=== PATIENT | female | born 1940 | race Caucasian/White ===

== ENCOUNTER 2017-12-13 09:48 | Emergency (ER) | payer MEDICARE, SELFPAY ==
[2017-12-13 10:08] VITALS: BP 130/84; PULSE 77; RESP 18; TEMP 37.1; O2SAT 99
--- NOTE | 2017-12-13 13:08 | DI.RAD.S_ITS ---
PROCEDURE: XR HIP W PEL IF DONE LT 2V INDICATIONS: fall with severe Left hip pain TECHNIQUE: AP pelvis with lateral view(s) of the left hip(s). COMPARISON: None. FINDINGS: Bones: No fractures or dislocations. Pelvic ring appears intact. No suspicious bony lesions. Soft tissues: The visualized bowel gas pattern is normal. No suspicious soft tissue calcifications. IMPRESSION: Trauma is not found. If hidden fracture is clinically suspected screening pelvic MRI may become necessary. Dictated by: Billy Dyson M.D. on 12/13/2017 at 13:28 Approved by: Billy Dyson M.D. on 12/13/2017 at 13:28
[2017-12-13 13:31] VITALS: BP 152/76; PULSE 74; RESP 14; O2SAT 100
--- NOTE | 2017-12-13 13:46 | DI.CT.S_ITS ---
PROCEDURE: CT PEL WO CON INDICATIONS: Fall with left hip pain TECHNIQUE: Noncontrast 3 mm axial sections acquired through the bony pelvis, with coronal and sagittal reformatting. COMPARISON: [facility], CR, XR HIP W PEL IF DONE LT 2V, 12/13/2017, 12:46. FINDINGS: Image quality: Excellent. Bones: No definite fracture found. Soft tissues: No hematoma identified. Note is made of a previously present left lower quadrant body wall herniorrhaphy mesh without adjacent inflammation. IMPRESSION: No definite trauma found. Several vascular canals are seen extending through the right and left pelvic osseous structures but none of these has imaging characteristics suggestive of nondisplaced fractures. Please note that MR scanning provides the most accurate assessment for hidden fractures and bone bruising, and ligamentous injury. Dictated by: Billy Dyson M.D. on 12/13/2017 at 14:13 Approved by: Billy Dyson M.D. on 12/13/2017 at 14:18
[2017-12-13 14:23] VITALS: BP 175/86; PULSE 72; RESP 16; O2SAT 97
--- NOTE | 2017-12-13 14:24 | PC.NURSE ---
pt reports pain in L hip worse when turning to L lateral side and putting pressure on it. Able to internally externally rotate L knee/leg w/o increasing pain. +CMS intact in L foot.
--- NOTE | 2017-12-13 14:35 | ED_ITS ---
HPI - Back Pain/Injury General Chief Complaint: Back Pain/Injury Stated Complaint: FELL ON TUESDAY Time Seen by Provider: 12/13/17 10:43 Source: patient and family Mode of arrival: ambulatory Limitations: no limitations History of Present Illness HPI Narrative: Patient presents to the emergency department with her and a chief complaint of left hip pain since a mechanical fall a few days ago. She very lightly bumped her head but denies loss of consciousness nor nausea, vomiting or focal neurologic findings such as numbness, weakness or tingling. She does not take blood thinners and denies the use of alcohol. Her pain is largely in her left hip and though she has been able to ambulate she states it is worse with walking MD Complaint: back pain Onset (ago): day(s) Duration: intermittent Similar Symptoms Previously: No Location: left lower back (, largely left hip) Severity: moderate Quality: stabbing Radiation: none Relieving factors: immobilization Exacerbating factors: walking Context: fall Associated symptoms: denies other symptoms Related Data Home Medications Medication Instructions Recorded Confirmed omeprazole magnesium [Prilosec OTC] 1 tab PO BID 12/13/17 12/13/17 Previous Rx's Medication Instructions Recorded atenolol 100 mg PO QDAY #90 tab 07/29/17 doxazosin 1 mg PO HS #90 tab 07/29/17 triamterene-hydrochlorothiazid 1 tab PO QDAY #90 tab 07/29/17 [Maxzide] Allergies Allergy/AdvReac Type Severity Reaction Status Date / Time amlodipine [AMLODIPINE] Allergy Mild Unverified 10/05/17 11:49 lisinopril [LISINOPRIL] Allergy Mild Unverified 10/05/17 11:49 metoclopramide Allergy Mild Unverified 10/05/17 11:49 [METOCLOPRAMIDE] Review of Systems Review of Systems All systems reviewed & are unremarkable except as noted in HPI and below Constitutional Denies chills, Denies fever(s), Denies lethargy and Denies weakness Eyes Denies change in vision, Denies eye discharge, Denies irritation and Denies loss of vision ENT Ears, Nose, Mouth, and Throat: Denies change in voice, Denies neck pain and Denies sore throat Cardiovascular Denies chest pain, Denies irregular heart rhythm, Denies lightheadedness, Denies palpitations, Denies dyspnea, Denies dyspnea on exertion and Denies orthopnea Respiratory Denies cough, Denies dyspnea, Denies dyspnea on exertion and Denies wheezing Gastrointestinal Gastrointestinal: Denies abdominal pain, Denies change in bowel habits, Denies diarrhea, Denies nausea and Denies vomiting Genitourinary Denies hematuria, Denies flank pain, Denies urinary incontinence and Denies urinary urgency Musculoskeletal Reports limited range of motion, Denies neck pain and Reports radiating pain into limb Integumentary/Breasts Denies pruritus, Denies erythema, Denies rash and Denies wounds Neurologic Denies confusion, Denies loss of vision and Denies weakness Psychiatric Denies anxiety, Denies confusion, Denies depression, Denies homicidal ideation and Denies suicidal ideation Endocrine Denies palpitations Hematologic/Lymphatic Denies easy bruising Allergic/Immunologic Denies wheezing [facility] Social History Smoking Status: Former smoker Exam Initial Vital Signs Initial Vital Signs: Vital Signs Temperature 98.8 F 12/13/17 10:08 Pulse Rate 77 12/13/17 10:08 Respiratory Rate 18 12/13/17 10:08 Blood Pressure 130/84 H 12/13/17 10:08 Pulse Oximetry 99 12/13/17 10:08 Const General: cooperative and well developed Nutritional Appearance: well nourished Orientation: alert, awake, oriented x3 and not confused [facility] Head: abrasion (Very superficial abrasion left occiput) Eyes General: appearance normal, both eyes and all related structures Eyelids: eyelids normal Conjunctivae: conjunctivae normal Sclera: sclerae normal Pupils: PERRL EOM: EOM intact bilaterally Neck Neck: normal visual inspection, trachea midline, No lymphadenopathy, No midline deformity and No JVD Lymphatic: No lymphedema Resp Effort & Inspection: normal respiratory effort, able to speak in complete sentences, no respiratory distress and no use of accessory muscles Auscultation: clear to auscultation bilaterally, no rales, no rhonchi and no wheezes GI Inspection: non-distended Palpation: soft, no hepatosplenomegaly, No guarding, No pulsatile mass and No tender Auscultation: normal bowel sounds Back/Spine/Pelvis Back: No CVA tenderness Cervical Spine: cervical ROM normal and No pain with cervical ROM Thoracic/Lumbar Spine: thoracic and lumbar spine normal to inspection Skin General: no rashes or lesions noted, No jaundice and No petechiae Neuro General: alert, oriented x3, gait normal and no focal motor deficits Speech: speech normal Extrem Left lower extremity: full ROM (Patient points to left hip as source of pain but has minimal pain with axial load, internal external rotation at the hip as well as flexion and extension at the hip. There is no obvious deformity, swelling or ecchymosis) Course Orders Ordered: ED Orders 12/13/17 13:08 XR hip w pel if done LT 2V Stat 12/13/17 13:46 CT pelvis wo con Stat Vital Signs - 8 hr 12/13/17 13:31 12/13/17 14:23 12/13/17 14:50 Pulse Rate 74 72 71 Respiratory Rate 14 16 12 Blood Pressure 141/78 H Blood Pressure [Right Arm] 152/76 H 175/86 H Pulse Oximetry 100 97 97 MDM - Back Pain/Injury Differential Diagnosis Differential diagnosis: Likely lumbar radiculopathy, sciatica, strain of lumbar region, renal colic, pyelonephritis, thoracic back pain, AAA and discitis Imaging Data CT scan - pelvis: Radiologist's impression: Patient: Tong [facility]#: [id number] : 1940Acct:[id number] Age/Sex: 77 / FDate of Service: 12/13/17 Loc: ED Accession Number: [id number] Procedure: CT pelvis wo con Ordering Provider: Quinn Marshall D.O. PROCEDURE: CT PEL WO CON INDICATIONS: Fall with left hip pain TECHNIQUE: Noncontrast 3 mm axial sections acquired through the bony pelvis, with coronal and sagittal reformatting. COMPARISON: [facility], CR, XR HIP W PEL IF DONE LT 2V, 12/13/2017, 12:46. FINDINGS: Image quality: Excellent. Bones: No definite fracture found. Soft tissues: No hematoma identified. Note is made of a previously present left lower quadrant body wall herniorrhaphy mesh without adjacent inflammation. IMPRESSION: No definite trauma found. Several vascular canals are seen extending through the right and left pelvic osseous structures but none of these has imaging characteristics suggestive of nondisplaced fractures. Please note that MR scanning provides the most accurate assessment for hidden fractures and bone bruising, and ligamentous injury. Dictated by: Billy Dyson M.D. on 12/13/2017 at 14:13 Approved by: Billy Dyson M.D. on 12/13/2017 at 14:18 Discharge Plan Departure Patient Disposition: Home, Self-Care Clinical Impression: Contusion of hip Discharge Date/Time: 12/13/17 14:55 Interventions: ED Discharge Assessment Last Done: 12/13/17 14:50 Instructions: DI for Contusion Activity Restrictions/Additional Instructions: *You have been diagnosed with [ left hip contusion ] *What to do: *Take medications as directed *Follow up with your primary care provider in 2-3 days *Return to ER if you should have any new, worsening or concerning symptoms Prescriptions: No Action doxazosin 1 MG tablet 1 mg PO HS Qty: 90 RF: 3 atenolol 100 MG tablet 100 mg PO QDAY Qty: 90 RF: 3 triamterene-hydrochlorothiazid [Maxzide] 75 MG/50 MG tablet 1 tab PO QDAY Qty: 90 RF: 3 omeprazole magnesium [Prilosec OTC] 20 mg Tablet,Delayed Release (Dr/Ec) 1 tab PO BID RF: 0
[2017-12-13 14:50] VITALS: BP 141/78; PULSE 71; RESP 12; O2SAT 97
== END 2017-12-13 14:55 | disposition home or self-care (01) ==
PROVIDERS: Emergency Provider Emergency Medicine; Family Provider Family Medicine; PCP Family Medicine
DX: S70.00XA Contusion of unspecified hip, initial encounter (principal); W19.XXXA Unspecified fall, initial encounter
CPT/HCPCS: 72192; 73502; 99282; 99284

== ENCOUNTER → 2018-03-01 09:51 | Outpatient (CLI) | payer MEDICARE, SELFPAY ==
--- NOTE | 2018-03-01 | DI.MG.S_ITS ---
BILATERAL DIGITAL SCREENING MAMMOGRAM 3D/2D WITH CAD: 03/01/2018 CLINICAL: Routine screening. Comparison is made to exams dated: 02/03/2017 mammogram, 01/22/2016 mammogram, and 01/20/2015 mammogram - [facility]. The tissue of both breasts is heterogeneously dense. This may lower the sensitivity of mammography. Current study was also evaluated with a Computer Aided Detection (CAD) system. There is possible architectural distortion in the right breast posterior depth upper region seen on the mediolateral oblique view only. Finding is best noted on tomographic R MLO slice 27/46. There are benign bilateral breast calcifications. No other significant masses, calcifications, or other findings are seen in either breast. IMPRESSION: INCOMPLETE: NEEDS ADDITIONAL IMAGING EVALUATION The possible architectural distortion in the right breast is indeterminate. Additional views with possible ultrasound are recommended. This exam was interpreted at Station ID: [id number]. NOTE: For mammograms, a report in lay terms will be sent to the patient. Approximately 15% of breast malignancies will not be visualized mammographically. In the management of a palpable breast mass, a negative mammogram must not discourage biopsy of a clinically suspicious lesion. Electronically Signed By: Bjorn Jean M.D. ecl/:03/01/2018 10:42:24 letter sent: Additional Imaging Needed ACR BI-RADS Category 0: Incomplete 3340F
== END ==
PROVIDERS: Family Provider Family Medicine; PCP Family Medicine; Visit Provider Family Medicine
DX: Z12.31 Encounter for screening mammogram for malignant neoplasm of breast (principal)
CPT/HCPCS: 77063; 77067

== ENCOUNTER → 2018-03-27 08:25 | Outpatient (CLI) | payer MEDICARE, SELFPAY ==
--- NOTE | 2018-03-27 08:28 | DI.MG.S_ITS ---
UNILATERAL RIGHT DIGITAL DIAGNOSTIC MAMMOGRAM 3D/2D WITH ADDITIONAL VIEWS: 03/27/2018 CLINICAL: Additional evaluation requested from prior study. Comparison is made to exams dated: 03/01/2018 mammogram, 02/03/2017 mammogram, and 01/22/2016 mammogram - [facility]. The tissue of right breast is heterogeneously dense. This may lower the sensitivity of mammography. The architectural distortion in the right breast posterior depth superior region seen on the mediolateral oblique view only is not seen in additional views. No other significant masses or calcifications are seen in the breast. IMPRESSION: There is no mammographic evidence of malignancy. A 1 year screening mammogram is recommended.(03/28/2019) This exam was interpreted at Station ID: [id number]. NOTE: For mammograms, a report in lay terms will be sent to the patient. Approximately 15% of breast malignancies will not be visualized mammographically. In the management of a palpable breast mass, a negative mammogram must not discourage biopsy of a clinically suspicious lesion. Electronically Signed By: Christine Deng M.D. lk/:03/27/2018 10:05:59 letter sent: Normal Exam ACR BI-RADS Category 2: Benign Finding(s) 3342F
== END ==
PROVIDERS: Family Provider Family Medicine; PCP Family Medicine; Visit Provider Family Medicine
DX: R92.8 Other abnormal and inconclusive findings on diagnostic imaging of breast (principal)
CPT/HCPCS: 77065; G0279

== ENCOUNTER → 2018-06-21 09:23 | Outpatient (CLI) | payer MEDICARE, SELFPAY ==
[2018-06-21 10:22] LABS: Alanine Aminotransferase 9 IU/L (9-52); Albumin 4.3 g/dL (3.5-5.0); Albumin Globulin Ratio 1.1 (1.0-2.8); Alkaline Phosphatase 44 U/L (38-126); Aspartate Aminotransferase 52 IU/L (14-36); BUN Creatinine Ratio 28.6 (6-22); Bilirubin Total 1.3 mg/dL (0.2-1.3); Blood Urea Nitrogen 20 mg/dL (7-17); Calcium 9.2 mg/dL (8.4-10.2); Carbon Dioxide 26 mmol/L (22-32); Chloride 98 mmol/L (98-107); Cholesterol 198 mg/dL (140-199); Estimated Glomerular Filt Rate > 60.0 mL/min (>60); Globulin 3.9 g/dL (1.7-4.1); Glucose 93 mg/dL (80-110); HDL Cholesterol 80 mg/dL (40-60); LDL Cholesterol Calculated 104 mg/dL (<100); Potassium 4.7 mmol/L (3.4-5.1); Sodium 136 mmol/L (137-145); Total Protein 8.2 g/dL (6.3-8.2); Triglycerides 71 mg/dL (35-150)
[2018-06-21 10:32] LABS: HEMOLYSIS 181 (0-50)
== END ==
PROVIDERS: Family Provider Family Medicine; PCP Family Medicine; Visit Provider Family Medicine
DX: I10 Essential (primary) hypertension (principal); R94.5 Abnormal results of liver function studies
CPT/HCPCS: 36415; 80053; 80061

== ENCOUNTER 2018-07-22 12:45 | Emergency (ER) | payer MEDICARE, SELFPAY ==
[2018-07-22 13:00] VITALS: BP 125/69; PULSE 82; RESP 14; TEMP 36.8; O2SAT 100; BMI 18.7
--- NOTE | 2018-07-22 13:34 | ED_ITS ---
HPI - Extremity Problem <Lexie Ngo PA-C - Last Filed: 07/22/18 22:00> General Chief complaint: Extremity Problem,Nontraumatic Stated complaint: pain in left hip, difficult to walk Time Seen by Provider: 07/22/18 13:04 Source: patient Mode of arrival: ambulatory Limitations: no limitations History of Present Illness HPI Narrative: This 77-year-old female is brought in by her son due to gradually worsening left hip pain. She had a fall 5 or 6 months ago and had MRI and x-rays done without any acute findings, states that she continues to have intermittent pain, but for the last 5 days, she states more persistent with walking. No pain at rest. She states it is still intermittent but definitely exacerbated by standing up and starting to walk. She has not taken any pain medication for this. She denies any new fall or trauma. She denies any new fever, rash, or new pain elsewhere. Denies any other complaints on systems review. When asked why she came in today versus at another time, her son states I got tired of listening to her complain. She believes that she does have arthritis in the hip. She states that she feels the pain more in the front of the hip, indicates medial to the hip Related Data Home Medications Medication Instructions Recorded Confirmed omeprazole magnesium [Prilosec OTC] 1 tab PO BID 12/13/17 03/29/18 Previous Rx's Medication Instructions Recorded doxazosin 1 mg PO HS #90 tab 07/29/17 triamterene-hydrochlorothiazid 1 tab PO QDAY #90 tab 07/29/17 [Maxzide] atenolol 100 mg tablet 100 mg PO QDAY #90 tab 07/20/18 Allergies Allergy/AdvReac Type Severity Reaction Status Date / Time amlodipine [AMLODIPINE] Allergy Mild Verified 07/22/18 13:10 lisinopril [LISINOPRIL] Allergy Mild Verified 07/22/18 13:10 metoclopramide Allergy Mild Verified 07/22/18 13:10 [METOCLOPRAMIDE] Review of Systems <Lexie Ngo PA-C - Last Filed: 07/22/18 22:00> Review of Systems ROS Unobtainable: All systems reviewed & are unremarkable except as noted in HPI and below Exam <Lexie Ngo PA-C - Last Filed: 07/22/18 22:00> Narrative Exam Narrative: GENERAL APPEARANCE: Patient sitting comfortably, in no distress. LUNGS: Clear to auscultation bilaterally. HEART: Rate and rhythm regular without murmur, normal S1 and S2, no S3 or S4. MUSCULOSKELETAL: No point tenderness over the left anterior or lateral hip. Somewhat tender over the left SI area. No point tenderness over the lumbosacral spine. Full passive range of motion of the left hip, +Karl's test, no tenderness with range of motion of the left knee or ankle DERMATOLOGIC: No exanthem Initial Vital Signs Initial Vital Signs: Vital Signs Temperature 98.2 F 07/22/18 13:00 Pulse Rate 82 07/22/18 13:00 Respiratory Rate 14 07/22/18 13:00 Blood Pressure 125/69 07/22/18 13:00 Pulse Oximetry 100 07/22/18 13:00 <Sal Fowler DO - Last Filed: 07/23/18 07:02> Initial Vital Signs Initial Vital Signs: Vital Signs Temperature 98.2 F 07/22/18 13:00 Pulse Rate 82 07/22/18 13:00 Respiratory Rate 14 07/22/18 13:00 Blood Pressure 125/69 07/22/18 13:00 Pulse Oximetry 100 07/22/18 13:00 Course <ROOSEVELT Miller Last Filed: 07/22/18 22:00> Additional Information: Patient and her son became frustrated with waiting for x -ray results and decided to depart prior to them being return. She reported feeling comfortable while waiting. She has not had any acute trauma. Advised trial of Tylenol arthritis strength and follow up with PCP next week. Advised we will call with any acute findings on the x-ray, otherwise if no changes will send to PCP for review and follow-up, and she is agreeable with this plan. Orders Ordered: Discontinued Medications Acetaminophen (Tylenol) 650 mg PO NOW ONE Stop: 07/22/18 13:46 Last Admin: 07/22/18 13:49 Dose: 650 mg Vital Signs - 8 hr 07/22/18 13:00 Temperature 98.2 F Pulse Rate 82 Respiratory Rate 14 Blood Pressure 125/69 Pulse Oximetry 100 <DO Jakob Olmstead Last Filed: 07/23/18 07:02> Orders Ordered: Discontinued Medications Acetaminophen (Tylenol) 650 mg PO NOW ONE Stop: 07/22/18 13:46 Last Admin: 07/22/18 13:49 Dose: 650 mg Vital Signs - 8 hr 07/22/18 13:00 Temperature 98.2 F Pulse Rate 82 Respiratory Rate 14 Blood Pressure 125/69 Pulse Oximetry 100 MDM - Extremity (Nontraumatic) <Lexie Ngo PA-C - Last Filed: 07/22/18 22:00> Imaging Data hip: Radiologist's impression: [address] [address] XRay Report Signed Patient: Tong [facility]MR#: [id number] : 1940Acct:[id number] Age/Sex: 77 / FDate of Service: 07/22/18 Loc: ED Accession Number: [id number] Procedure: XR hip w pel if done LT 2V Ordering Provider: Lexie Ngo P.A-C PROCEDURE: XR HIP W PEL IF DONE LT 2V INDICATIONS: anterior and posterior pain, trouble walking TECHNIQUE: 3 views of the hip were acquired. COMPARISON: 12/13/2017. FINDINGS: Bones: No acute fractures or dislocations. Degenerative changes of the bilateral hip and lumbar spine. Mild degenerative changes of the bilateral SI joints. No suspicious bony lesions. The visualized pelvic ring appears intact. Soft tissues: No suspicious soft tissue calcifications or masses. Surgical clips are again noted in the left lower abdomen. IMPRESSION: Left hip without acute osseous abnormalities. Degenerative changes as before. Dictated by: Maximilian Zimmerman M.D. on 07/22/2018 at 15:54 Approved by: Maximilian Zimmerman M.D. on 07/22/2018 at 15:56 Discharge Plan Departure Patient Disposition: Left Against Medical Advice Clinical Impression: Left against medical advice Discharge Date/Time: 07/22/18 15:43 Interventions: ED Discharge Assessment Last Done: 07/22/18 15:43 Prescriptions: No Action doxazosin 1 MG tablet 1 mg PO HS Qty: 90 RF: 3 triamterene-hydrochlorothiazid [Maxzide] 75 MG/50 MG tablet 1 tab PO QDAY Qty: 90 RF: 3 atenolol 100 mg tablet 100 mg PO QDAY Qty: 90 RF: 1 omeprazole magnesium [Prilosec OTC] 20 mg Tablet,Delayed Release (Dr/Ec) 1 tab PO BID RF: 0 Stand Alone Forms: Against Medical Advice <Sal Fowler, - Last Filed: 07/23/18 07:02> Cosign ED Attending Coskevinature Attestation: I was available for consultation during this patient's emergency department encounter
--- NOTE | 2018-07-22 13:45 | DI.RAD.S_ITS ---
PROCEDURE: XR HIP W PEL IF DONE LT 2V INDICATIONS: anterior and posterior pain, trouble walking TECHNIQUE: 3 views of the hip were acquired. COMPARISON: 12/13/2017. FINDINGS: Bones: No acute fractures or dislocations. Degenerative changes of the bilateral hip and lumbar spine. Mild degenerative changes of the bilateral SI joints. No suspicious bony lesions. The visualized pelvic ring appears intact. Soft tissues: No suspicious soft tissue calcifications or masses. Surgical clips are again noted in the left lower abdomen. IMPRESSION: Left hip without acute osseous abnormalities. Degenerative changes as before. Dictated by: Maximilian Zimmerman M.D. on 07/22/2018 at 15:54 Approved by: Maximilian Zimmerman M.D. on 07/22/2018 at 15:56
[2018-07-22] MEDS: ACETAMINOPHEN 325 MG TABLET 650 MG PO (13:49)
== END 2018-07-22 15:43 | disposition left against medical advice (07) ==
PROVIDERS: Emergency Provider Internal Medicine; PCP Family Medicine
DX: M25.552 Pain in left hip (principal); Z53.20 Procedure and treatment not carried out because of patient's decision for unspecified reasons
CPT/HCPCS: 73502; 99283

== ENCOUNTER → 2018-09-12 09:41 | Outpatient (CLI) | payer MEDICARE, SELFPAY ==
--- NOTE | 2018-09-12 | DI.CT.S_ITS ---
PROCEDURE: CT KIDNEY URETER BLADDER (KUB) INDICATIONS: LEFT LOWER QUADRANT PAIN TECHNIQUE: Noncontrast 5 mm thick sections acquired from the diaphragms to the symphysis. 5 mm thick coronal and sagittal reformats were then performed. For radiation dose reduction, the following was used: automated exposure control, adjustment of mA and/or kV according to patient size. COMPARISON: [facility], CT, ABDOMEN/PELVIS WITH CONTRAST, 05/16/2015, 11:15. [facility], CT, CT PEL WO CON, 12/13/2017, 13:39. [facility], US, ABDOMEN COMPLETE, 07/25/2017, 8:21. FINDINGS: Image quality: Excellent. Lung bases: Lung bases are clear. Heart size is normal. Bilateral, small fat containing posterior diaphragmatic hernias Urinary system: Bilateral renal cortical scarring and atrophy. There is age-indeterminate minimal perinephric stranding bilaterally. No kidney stones. No hydronephrosis or perinephric fat stranding. Both ureters appear non-dilated throughout their expected courses. Bladder is partially decompressed otherwise grossly unremarkable; no calcified bladder stones. Other solid organs: Liver is normal in size. Gallbladder contains a partially calcified gallstone as seen on prior ultrasound dated 07/25/17. Pancreas is normal in contours. Spleen is normal in size. No adrenal nodules. Peritoneum and bowel: Small hiatal hernia Unenhanced bowel loops demonstrate normal wall thickness and caliber. No free fluid or air. Nodes and vessels: No retroperitoneal or mesenteric adenopathy by size criteria. Aorta and inferior vena cava are normal in caliber. Abdominal wall: No ventral hernias. Probable postsurgical changes related to repair of left anterior abdominal wall hernia, unchanged. Since 2014. Pelvis: No free pelvic fluid. No inguinal hernias or adenopathy. Bones: No suspicious bony lesions. T12 compression fracture, which is new since 05/16/15 however no more recent comparison studies. IMPRESSION: No evidence of urolithiasis. No evidence of urinary obstruction. Cholelithiasis as before. Age-indeterminate T12 compression fracture. Incidental colonic diverticulosis. Small hiatal hernia. Dictated by: Cecil Youngblood M.D. on 09/12/2018 at 10:48 Approved by: Cecil Youngblood M.D. on 09/12/2018 at 11:10
== END ==
PROVIDERS: PCP Family Medicine; Visit Provider Specialist
DX: R10.32 Left lower quadrant pain (principal); K80.80 Other cholelithiasis without obstruction; K57.90 Diverticulosis of intestine, part unspecified, without perforation or abscess without bleeding; K44.9 Diaphragmatic hernia without obstruction or gangrene; M48.54XA Collapsed vertebra, not elsewhere classified, thoracic region, initial encounter for fracture
CPT/HCPCS: 74176

== ENCOUNTER → 2018-10-03 08:24 | Outpatient (CLI) | payer MEDICARE, SELFPAY ==
[2018-10-03 08:40] LABS: Bacteria Urine None Seen; RBC Urine None Seen (0-5/HPF)
[2018-10-03 09:17] LABS: Hematocrit 38.4 % (36-46); Hemoglobin 13.3 g/dL (12.0-16.0); Mean Corpuscular HGB Conc 34.6 % (30-36); Mean Corpuscular Hemoglobin 34.7 PG (26-34); Mean Corpuscular Volume 100.3 fL (80-100); Platelet Count 206 X10^3/uL (150-400); Red Blood Cell Count 3.83 X10^6/uL (4.0-5.2); Red Cell Distribution Width 13.9 % (11.6-14.8); White Blood Cell Count 4.3 X10^3/uL (4.5-11.0)
[2018-10-03 09:37] LABS: Alanine Aminotransferase 22 IU/L (9-52); Albumin 4.3 g/dL (3.5-5.0); Albumin Globulin Ratio 1.3 (1.0-2.8); Alkaline Phosphatase 48 U/L (38-126); Aspartate Aminotransferase 37 IU/L (14-36); Bilirubin Total 0.6 mg/dL (0.2-1.3); Blood Urea Nitrogen 16 mg/dL (7-17); Carbon Dioxide 28 mmol/L (22-32); Chloride 95 mmol/L (98-107); Cholesterol 217 mg/dL (140-199); Estimated Glomerular Filt Rate > 60.0 mL/min (>60); Globulin 3.2 g/dL (1.7-4.1); Glucose 94 mg/dL (80-110); HDL Cholesterol 94 mg/dL (40-60); HEMOLYSIS < 15 (0-50); LDL Cholesterol Calculated 105 mg/dL (<100); Sodium 134 mmol/L (137-145); Total Protein 7.5 g/dL (6.3-8.2); Triglycerides 88 mg/dL (35-150)
[2018-10-03 09:48] LABS: Appearance Urine UA CLEAR; Bilirubin Urine UA NEGATIVE (NEGATIVE); Color Urine UA YELLOW; Glucose Urine UA NEGATIVE (Negative); Ketones Urine UA NEGATIVE (NEGATIVE); Leukocyte Esterase Urine UA 1+ (NEGATIVE); Nitrite Urine UA NEGATIVE (Negative); Occult Blood Urine UA NEGATIVE (Negative); Protein Urine UA NEGATIVE (Negative); Specific Gravity Urine UA 1.015 (1.000-1.035); pH Urine UA 6.5 (4.5-8.0)
[2018-10-03 09:56] LABS: Culture Indicated Urine Cult Not Indicated; Squamous Epithelial Cell Urine 5-10 /HPF (0-5/HPF); WBC Urine 5-10/HPF (0-5/HPF)
== END ==
PROVIDERS: PCP Family Medicine; Visit Provider Family Medicine
DX: I10 Essential (primary) hypertension (principal); R74.8 Abnormal levels of other serum enzymes; R79.89 Other specified abnormal findings of blood chemistry; Z51.81 Encounter for therapeutic drug level monitoring
CPT/HCPCS: 36415; 80053; 80061; 81001; 85027

== ENCOUNTER → 2019-04-06 12:12 | Outpatient (CLI) | payer MEDICARE, SELFPAY ==
--- NOTE | 2019-04-06 | DI.MG.S_ITS ---
BILATERAL DIGITAL SCREENING MAMMOGRAM 3D/2D WITH CAD: 04/06/2019 CLINICAL: Routine screening. Comparison is made to exams dated: 03/27/2018 mammogram, 03/01/2018 mammogram, 02/03/2017 mammogram, 01/22/2016 mammogram, and 01/20/2015 mammogram - [facility]. The tissue of both breasts is heterogeneously dense. This may lower the sensitivity of mammography. Current study was also evaluated with a Computer Aided Detection (CAD) system. Findings are stable to prior comparison exams. No new suspicious masses, calcifications, or other findings are seen in either breast. There has been no significant interval change. IMPRESSION: NEGATIVE There is no mammographic evidence of malignancy. A 1 year screening mammogram is recommended. This exam was interpreted at Station ID: [id number]. NOTE: For mammograms, a report in lay terms will be sent to the patient. Approximately 15% of breast malignancies will not be visualized mammographically. In the management of a palpable breast mass, a negative mammogram must not discourage biopsy of a clinically suspicious lesion. Electronically Signed By: Bjorn Jean M.D. ecl/:04/06/2019 18:50:05 letter sent: Normal Exam ACR BI-RADS Category 1: Negative 3341F
== END ==
PROVIDERS: PCP Family Medicine; Visit Provider Family Medicine
DX: Z12.31 Encounter for screening mammogram for malignant neoplasm of breast (principal)
CPT/HCPCS: 77063; 77067

== ENCOUNTER 2019-07-28 13:09 | Emergency (ER) | payer MEDICARE, SELFPAY ==
[2019-07-28 13:17] VITALS: BP 123/77; PULSE 78; RESP 18; TEMP 36.6; O2SAT 97
[2019-07-28 13:42] LABS: Bacteria Urine None Seen; RBC Urine None Seen (0-5/HPF)
[2019-07-28 14:02] LABS: Culture Indicated Urine Cult Not Indicated; Squamous Epithelial Cell Urine 5-10 /HPF (0-5/HPF); WBC Urine 1-5/HPF (0-5/HPF)
--- NOTE | 2019-07-28 14:19 | ED_ITS ---
HPI - Weakness <FRANCISCO De La Vega - Last Filed: 07/28/19 20:27> General Chief complaint: Weakness Stated complaint: aches, pains, cough, runny nose Time Seen by Provider: 07/28/19 13:22 Source: patient and family Mode of arrival: Wheelchair Limitations: no limitations History of Present Illness HPI Narrative: This is a 78-year-old female, former smoker, who presents to ED with family member with chief complain of generalized weakness, headache, body ache, runny nose with clear discharge, and mild nonproductive cough, chills. Patient reports she has nocturnal urinary incontinence and just saw Dr. Connelly last week and was prescribed with antibiotic medication for UTI. Patient reports she had completed the medication course. Patient denies urinary discomfort, hematuria, urinary frequency or increasing urgency. Patient denies fever, nausea, vomiting, flank pain. Patient also has chronic diarrhea frequently and takes Imodium most of the days. Patient has several abdominal surgery history is including endometriosis, hysterectomy, hernia surgery and removal of abdominal cyst. Patient states she does know why she is here and repeatedly requesting to go home. Related Data Home Medications Medication Instructions Recorded Confirmed omeprazole magnesium 20 mg 20 mg PO DAILY tab 06/26/19 06/26/19 tablet,delayed release Previous Rx's Medication Instructions Recorded doxazosin 1 mg tablet 1 mg PO HS #90 tab 08/24/18 triamterene 75 1 tab PO QDAY #90 tab 11/06/18 mg-hydrochlorothiazide 50 mg tablet atenolol 100 mg tablet 100 mg PO QDAY #90 tab 07/27/19 Allergies Allergy/AdvReac Type Severity Reaction Status Date / Time amlodipine [AMLODIPINE] Allergy Mild Verified 07/28/19 13:22 lisinopril [LISINOPRIL] Allergy Mild Verified 07/28/19 13:22 metoclopramide Allergy Mild Verified 07/28/19 13:22 [METOCLOPRAMIDE] Review of Systems <FRANCISCO De La Vega - Last Filed: 07/28/19 20:27> Review of Systems Narrative: General: Denies fever, (+) mild chills, (+) fatigue, (+) malaise, sweats. HEENT: Denies sinus pain, ear pain, sore throat, difficulty swallowing, dizziness. Respiratory: Denies dyspnea, cough, wheezing, hemoptysis, sputum. Cardiovascular: Denies chest pain, palpitations, orthopnea, edema. Gastrointestinal: Denies nausea, vomiting, abdominal pain, diarrhea, constipati on, melena. : Denies dysuria, frequency, (+) nocturnal incontinence, hematuria, urinary retention. Musculoskeletal: Denies weakness, joint pain or bony pain. Skin: Denies rash, skin lesions, or other. Neurologic: Denies weakness, headache, numbness, change in speech, confusion, seizures, incoordination. Psychiatric: No concerning psychosocial issues. 12-point review of systems is negative except for those stated above. Patient History <FRANCISCO De La Vega - Last Filed: 07/28/19 20:27> Medical History Arthritis (Acute ~2013) Cholelithiasis (Chronic ~06/2017) Colon polyps (Resolved ~2006) Diarrhea (Acute) Fatty liver (Chronic ~01/2014) Fibroids (Resolved) GERD (gastroesophageal reflux disease) (Chronic ~01/2014) Hypertension (Chronic) Surgical History History of back surgery (Resolved) History of tonsillectomy and adenoidectomy (Resolved) History of total abdominal hysterectomy and bilateral salpingo-oophorectomy (Resolved) Hx of hernia repair (Resolved) Hx of surgical procedure (Resolved) Family History Father Cancer Mother Hypertension Social History Smoking Status: Former smoker Smoking Status: Former smoker alcohol intake frequency: 0-2 drinks per day Substance Use Type: does not use Exam <FRANCISCO De La Vega - Last Filed: 07/28/19 20:27> Narrative Exam Narrative: GEN: Alert, oriented x 3, well appearing and thin, and in no acute distress, appears to be upset and repeatedly requesting to go home. Head: Normal cephalic, atraumatic. No scalp or temporal tenderness, palpable mass or rash. EYES: Pupils are equal, round, and reactive to light and accommodation. Extraocular muscles are intact bilaterally. There is no subconjunctival hem orrhage, exudate and sclera non-icteric. ENT: Bilateral auditory canals and tympanic membranes clear. Hearing grossly intact. Nose without bleeding, purulent discharge or deviation. Facial sinuses nontender to palpate. Mucous membrane moist, no mucosal lesion. Throat without erythema, tonsillar hypertrophy or exudate. Uvula in midline, airway patent. Neck: Trachea in midline. No JVD, non-tender without lymphadenopathy. No masses or thyroid megaly. Supple, non-tender and no meningeal signs. CARDIAC: Normal regular rate and rhythm without murmurs, gallops, or rubs. No chest wall tenderness. No peripheral edema, cyanosis or pallor. Capillary refill is less than 2 seconds. RESPIRATORY: Lungs are clear to auscultate bilaterally. No cough, wheezes, rales, or rhonchi. No stridor, respiratory distress, increase work of breathing, or accessary muscle used. ABD: Abdomen soft, nontender and non-distended. No guarding or rebound tenderness to palpate. Bowel sounds are normal in all 4 quadrants. There is no palpable masses or organomegaly. EXT: Full painless ROM of all extremities with no loss of sensation, strength, effusion or edema. SKIN: Warm, dry, normal color for patient. No erythema, lesions or rash over visible areas. BACK: Nontender without deformity or crepitance. No flank tenderness. NEUROLOGICAL: Alert and oriented to place, time and person. Sensation and motor function intact bilaterally. No facial droops, dysphasia. PSYCHIATRIC: Good judgement and reason, without hallucinations, abnormal affect or abnormal behaviors during the examination. Initial Vital Signs Initial Vital Signs: Vital Signs Temperature 97.8 F 07/28/19 13:17 Pulse Rate 78 07/28/19 13:17 Respiratory Rate 18 07/28/19 13:17 Blood Pressure 123/77 07/28/19 13:17 Pulse Oximetry 97 07/28/19 13:17 <Sal Fowler DO - Last Filed: 07/29/19 07:34> Initial Vital Signs Initial Vital Signs: Vital Signs Temperature 97.8 F 07/28/19 13:17 Pulse Rate 78 07/28/19 13:17 Respiratory Rate 18 07/28/19 13:17 Blood Pressure 123/77 07/28/19 13:17 Pulse Oximetry 97 07/28/19 13:17 Scores <VALENTINE De La VegaP - Last Filed: 07/28/19 20:27> GCS Bryanna coma scale eye opening: Spontaneous Bryanna coma scale verbal response: Orientated Bryanna coma scale motor response: Obey commands Bryanna coma scale total score: 15 Course <VALENTINE De La VegaP - Last Filed: 07/28/19 20:27> Orders Ordered: ED Orders 07/28/19 13:41 Urine Microscopic Stat Vital Signs Vital signs: Vital Signs - 8 hr 07/28/19 13:17 Temperature 97.8 F Pulse Rate 78 Respiratory Rate 18 Blood Pressure 123/77 Pulse Oximetry 97 <Sal Fowler DO - Last Filed: 07/29/19 07:34> Orders Ordered: ED Orders 07/28/19 13:41 Urine Microscopic Stat Vital Signs Vital signs: Vital Signs - 8 hr 07/28/19 13:17 Temperature 97.8 F Pulse Rate 78 Respiratory Rate 18 Blood Pressure 123/77 Pulse Oximetry 97 MDM - Weakness <VALENTINE De La VegaP - Last Filed: 07/28/19 20:27> Differential Diagnosis Differential diagnosis: Likely anemia, dehydration and other (Electrolyte imbalance, UTI) Medical Records Attestation: I reviewed the patient's medical records. Lab Data Attestation: I reviewed the patient's lab results. Labs: Lab Results 07/28/19 Range/Units 13:41 Urine RBC None seen (0-5/HPF) Urine WBC 1-5/hpf (0-5/HPF) Ur Squamous Epith Cells 5-10 /hpf H (0-5/HPF) Urine Bacteria None seen (None) Ur Culture Indicated? Cult not indicated Urine Dip Bedside Urine Glucose Negative Bedside Urine Bilirubin - Negative Bedside Urine Ketone - Negative Urine Specific Cadwell 1.010 Bedside Urine Occult Blood - Negative Bedside Urine pH 8.0 Bedside Urine Protein - Negative Bedside Urine Urobilinogen +/- 1mg Bedside Urine Nitrite - Negative Bedside Urine Leukocytes + 70 Esterase MDM Narrative Medical decision making narrative: Patient states she has nocturnal urinary incontinence and was prescribed with antibiotic medication a week ago which she had completed. Patient states she has not know why she is here but was brought in by her family member. She states she is feeling fine. Patient wants to know if she has UTI. Physical exam is benign. Urine does not indicate obvious infection. Patient declined further imaging, blood tests to rule out anemia, electrolyte imbalance or dehydration. Patient's significant other states they are about to change bed mattress and would like to make sure patient does not have UTI which will help with nocturnal incontinence. The patient and family member states that they are willing to have the patient's lab drawn but would like to go home and wait for the phone call with the results and they were informed that it is highly recommended that they wait for resolved so she could get treatment as needed. They elected to go home at this time declining further tests. Patient and family member increased supportive care with hydration and rest. Take Tylenol as needed for discomfort or fever and return to ED with any worsening symptoms and to follow up with primary care physician next week for further evaluation and testing. Patient and family member verbalized understanding and agree with the treatment plan. <Sal Fowler, - Last Filed: 07/29/19 07:34> Lab Data Labs: Lab Results 07/28/19 Range/Units 13:41 Urine RBC None seen (0-5/HPF) Urine WBC 1-5/hpf (0-5/HPF) Ur Squamous Epith Cells 5-10 /hpf H (0-5/HPF) Urine Bacteria None seen (None) Ur Culture Indicated? Cult not indicated Urine Dip Bedside Urine Glucose Negative Bedside Urine Bilirubin - Negative Bedside Urine Ketone - Negative Urine Specific Cadwell 1.010 Bedside Urine Occult Blood - Negative Bedside Urine pH 8.0 Bedside Urine Protein - Negative Bedside Urine Urobilinogen +/- 1mg Bedside Urine Nitrite - Negative Bedside Urine Leukocytes + 70 Esterase Discharge Plan Departure Patient Disposition: Home Clinical Impression: Generalized weakness, Urinary incontinence, nocturnal enuresis Upper respiratory infection Qualifiers: URI type: unspecified URI Qualified Code(s): J06.9 - Acute upper respiratory infection, unspecified Discharge Date/Time: 07/28/19 14:10 Instructions: DI for Viral Upper Respiratory Infection -- Adult Activity Restrictions/Additional Instructions: You have been diagnosed with [generalized weakness, mild upper respiratory infection. No significant signs of urinary infection. You declined blood tests at this time.]. What to do: *Take your medications as directed. You can take [id number] Tylenol 650 mg as needed 4 times a day for discomfort, fever, or headaches. Please hydrate herself adequately with water and sports drink. *Follow up with your primary care provider in 2-3 days, call for an appointment. Let them know you were seen in the ED and that we asked you to be seen in follow up possibly with blood test and further evaluation. *Return to ED if you have any new, worsening, or concerning symptoms, such as [chest pain, breathing difficulty, unable to tolerate fluids, fever, pain or any acute concerns]. Prescriptions: No Action doxazosin 1 mg tablet 1 mg PO HS Qty: 90 RF: 3 triamterene-hydrochlorothiazid [Maxzide] 75-50 mg tablet 1 tab PO QDAY Qty: 90 RF: 3 atenolol 100 mg tablet 100 mg PO QDAY Qty: 90 RF: 0 Prilosec OTC 20 mg tablet,delayed release (DR/EC) 20 mg PO DAILY RF: 0 Referrals: Ron Cordova MD [Primary Care Provider] - <Sal Fowler DO - Last Filed: 07/29/19 07:34> Sign Out Provider Sign Out Attestation: Dr Fowler Co-Sign Statement: I was available for consultation during this patient's emergency department visit. This chart is signed by myself for administrative purposes only. I did not have direct contact with this patient during this visit. They were seen independently by the APC.
== END 2019-07-28 14:10 | disposition home or self-care (01) ==
PROVIDERS: Emergency Provider Nurse Practitioner Family; PCP Student in an Organized Health Care Education/Training Program
DX: R53.1 Weakness (principal); N39.44 Nocturnal enuresis; J06.9 Acute upper respiratory infection, unspecified
CPT/HCPCS: 81003; 81015; 99281; 99282

== ENCOUNTER 2019-10-03 17:53 | Emergency (ER) | payer MEDICARE, SELFPAY ==
[2019-10-03] VITALS (16 sets, daily range): BP systolic 79–145; BP diastolic 51–79; PULSE 71–104; RESP 16–33; TEMP 35.8–36.3; O2SAT 85–100
--- NOTE | 2019-10-03 18:19 | ED.WEAKNESS ---
HPI - Weakness General Chief complaint: Weakness Stated complaint: trouble getting out of bed,not eatting,nose pain Time Seen by Provider: 10/03/19 18:04 Source: patient Mode of arrival: Ambulatory Limitations: other (Poor historian) History of Present Illness HPI Narrative: The patient complains of progressive weakness. She has prior visits here with UTI, prior visits with dehydration. As described by her , she does not eat or drink. She says she has no appetite. She has had almost not need to drink in 3 days. She complains of no headache, sore throat, or difficulty swallowing. She has no abdominal pain. She has had no nausea, vomiting, diarrhea or constipation. She has no chest pain or cough. She has no urinary complaints. She denies specific back pain, but complains of generalized myalgia and arthralgia. She and her have been stain home without exposures. There has been no COVID-19 exposure. Related Data Home Medications Medication Instructions Recorded Confirmed omeprazole magnesium 20 mg 20 mg PO DAILY tab 06/26/19 06/26/19 tablet,delayed release Previous Rx's Medication Instructions Recorded doxazosin 1 mg tablet 1 mg PO HS #90 tab 08/24/18 triamterene 75 1 tab PO QDAY #90 tab 11/06/18 mg-hydrochlorothiazide 50 mg tablet atenolol 100 mg tablet 100 mg PO QDAY #90 tab 07/27/19 Allergies Allergy/AdvReac Type Severity Reaction Status Date / Time amlodipine [AMLODIPINE] Allergy Mild Verified 07/28/19 13:22 lisinopril [LISINOPRIL] Allergy Mild Verified 07/28/19 13:22 metoclopramide Allergy Mild Verified 07/28/19 13:22 [METOCLOPRAMIDE] Review of Systems Review of Systems ROS Unobtainable: All systems reviewed & are unremarkable except as noted in HPI and below Constitutional Constitutional: Denies chills, Denies fever(s), Denies headache(s), Reports lethargy, Reports malaise, Reports poor appetite and Reports weakness Eyes Eyes: Denies change in vision ENT Ears, Nose, Mouth, and Throat: Denies dizziness, Denies headache(s), Denies hoarseness and Denies sinus pain Cardiovascular Cardiovascular: Denies chest pain, Denies irregular heart rhythm, Denies lightheadedness, Denies palpitations, Denies dyspnea, Reports dyspnea on exertion and Denies orthopnea Respiratory Respiratory: Denies cough, Denies dyspnea, Reports dyspnea on exertion and Denies wheezing Gastrointestinal Gastrointestinal: Denies abdominal pain, Denies change in bowel habits, Denies diarrhea, Denies nausea and Denies vomiting Genitourinary Genitourinary: Denies dysuria Comments: Very little urine output. Musculoskeletal Comments: Generalized myalgia and arthralgia Integumentary/Breasts Skin/Breast: Denies erythema and Denies rash Neurologic Neurologic: Reports confusion, Denies dizziness, Denies headache(s) and Reports weakness Psychiatric Psychiatric: Denies anxiety, Reports confusion and Denies mood swings Comments: For historian. Endocrine Endocrine: Denies palpitations Allergic/Immunologic Allergic/Immunologic: Denies wheezing Patient History Medical History Arthritis (Acute ~2013) Cholelithiasis (Chronic ~06/2017) Colon polyps (Resolved ~2006) Diarrhea (Acute) Fatty liver (Chronic ~01/2014) Fibroids (Resolved) GERD (gastroesophageal reflux disease) (Chronic ~01/2014) Hypertension (Chronic) Surgical History History of back surgery (Resolved) History of tonsillectomy and adenoidectomy (Resolved) History of total abdominal hysterectomy and bilateral salpingo-oophorectomy (Resolved) Hx of hernia repair (Resolved) Hx of surgical procedure (Resolved) Family History Father Cancer Mother Hypertension Social History Smoking Status: Former smoker Smoking Status: Former smoker alcohol intake frequency: 0-2 drinks per day Substance Use Type: does not use Exam Initial Vital Signs Initial Vital Signs: Vital Signs Temperature 96.4 F L 10/03/19 18:16 Pulse Rate 89 10/03/19 18:16 Respiratory Rate 18 10/03/19 18:16 Blood Pressure 89/65 L 10/03/19 18:16 Pulse Oximetry 85 L 10/03/19 18:16 Const General: cooperative and No in distress Nutritional Appearance: cachectic and thin Other: Historian. Most information is from her . [facility] Head: normocephalic and atraumatic Face and sinus: sinuses nontender, face symmetric, no sinus tenderness and No dry mucous membranes Mouth: oral mucosae normal and moist mucous membranes Teeth and gingiva: dentition normal Throat: tonsils normal and uvula midline Eyes General: appearance normal, both eyes and all related structures Eyelids: eyelids normal Conjunctivae: conjunctivae normal Sclera: sclerae normal Pupils: PERRL EOM: EOM intact bilaterally Neck Neck: No lymphadenopathy, No tender and No JVD Chest Chest: normal inspection of the chest Resp Effort & Inspection: normal respiratory effort, able to speak in complete sentences and no respiratory distress Auscultation: clear to auscultation bilaterally, no rales, no rhonchi and no wheezes Cardio Rate: regular rate Rhythm: regular rhythm Heart Sounds: no click, no gallops, no murmurs and no rubs Pulses: normal peripheral pulses GI Inspection: non-distended Palpation: soft, no hepatosplenomegaly, No guarding, No pulsatile mass and No tender Auscultation: normal bowel sounds Back/Spine/Pelvis Back: normal to inspection and No back tenderness Skin Other: Thin, dry. No rashes. Neuro Other: [place] x3, but she is a poor historian. Generalized weakness, no focal weakness. Extrem Other: Very thin, atrophic. Normal peripheral pulses. No focal weakness Psych Appearance: well kempt Mental Status: mental status grossly normal Attitude: cooperative Judgment: poor Course Course Course Narrative: The patient was initially managed as severe dehydration given her history of not eating and drinking. She has no fever, headache, cough or difficulty breathing. She has no abdominal pain. She was found to have multiple significant lab abnormalities. She is in acute renal failure, her baseline creatinine is 0.8 from 1 year ago. Her electrolytes were normal 1 year ago. Additionally she is found to have an elevated troponin and elevated lactic acid. She has no EKG changes, no dyspnea, and no complaints of chest pain. With the elevated lactic acid, she has no fever, and no obvious source for sepsis. She was given aspirin. She was given Zosyn during the evaluation, considering she may have sepsis. After aggressive IV hydration, there is subtle improvement in her labs, including improvement of the troponin and lactic acid level. She has a Crow in place to monitor urine output, despite IV fluid boluses there is minimal urine output. I suspect the troponin and lactic acid abnormalities are associated with acute renal failure. Due to the hypernatremia she was changed to LR after initial receiving normal saline. Her initial blood pressure was greater than 100 systolic. Her blood pressure did verbal 80-100, without tachycardia. It is noted that she is of very low body weight. I have discussed the situation with the hospitalist at [facility], Dr. Rodriguez. He has accepted the patient in transfer understanding he has the ability to call for nephrology consult if desired. The patient and her were approached, she would like to be a full code. Imaging - [place] 78 F 1940 ACTIVITY DATE EXAM STATUS AUTHOR 10/03/19 18:[address] [address] XRay Report Signed Patient: Wooten MMR#: [id number] : 1940Acct:[id number] Age/Sex: 78 / FDate of Service: 10/03/19 Loc: ED Accession Number: [id number] Procedure: XR chest 1V Ordering Provider: Carlos Jewell MD PROCEDURE: XR CHEST 1V INDICATIONS: Weakness TECHNIQUE: One view of the chest was acquired. COMPARISON: [facility], , CHEST 2 VIEW, 09/10/2009, 12:24. FINDINGS: Surgical changes and devices: None. Lungs and pleura: Lungs are clear. Diffuse emphysema. No pleural effusions or pneumothorax. Mediastinum: Mediastinal contours appear normal. Heart size is normal. Bones and chest wall: No suspicious bony lesions. Overlying soft tissues appear unremarkable. IMPRESSION: Emphysema. No acute process. Dictated by: Kena Mason M.D. on 10/03/2019 at 20:17 Approved by: Kena Mason M.D. on 10/03/2019 at 20:17 Orders Ordered: ED Orders 10/03/19 18:35 XR chest 1V Stat 10/03/19 18:48 EKG-12 Lead Stat 10/03/19 19:00 Complete Blood Count AUTO DIFF Stat Comprehensive Metabolic Panel Stat Ethanol (ETOH) Stat Lactate (Lactic Acid) Stat Partial Thromboplastin Time Stat Prothrombin Time INR Stat Troponin & CK Cardiac Panel Stat 10/03/19 20:00 UA dip and micro [Urinalysis and Microscopic] Stat Urine Culture Stat 10/03/19 21:14 Comprehensive Metabolic Panel Stat Troponin & CK Cardiac Panel Stat Lactated Ringer's (Lactated Ringers) 1,000 mls @ 200 mls/hr IV CONT ANTWON Last Infusion: 10/04/19 01:36 Dose: 0 mls/hr Documented by: Infusion: 10/03/19 23:40 Dose: 1,000 mls/hr Documented by: Admin: 10/03/19 23:17 Dose: 200 mls/hr Documented by: JOSE Discontinued Medications Aspirin (Aspirin Ec) 325 mg PO NOW ONE Stop: 10/03/19 22:26 Last Admin: 10/03/19 23:16 Dose: 325 mg Documented by: JOSE Sodium Chloride (Normal Saline 0.9%) 1,000 mls @ 1,000 mls/hr IV BOLUS ONE Stop: 10/03/19 19:21 Last Infusion: 10/03/19 20:30 Dose: 0 mls/hr Documented by: Admin: 10/03/19 19:00 Dose: 1,000 mls/hr Documented by: JOSE Sodium Chloride (Normal Saline 0.9%) 1,000 mls @ 1,000 mls/hr IV BOLUS ONE Stop: 10/03/19 20:41 Last Admin: 10/03/19 21:11 Dose: Not Given Documented by: LOU Lactated Ringer's (Lactated Ringers) 1,000 mls @ 1,000 mls/hr IV BOLUS ONE Stop: 10/03/19 20:41 Last Infusion: 10/03/19 23:07 Dose: 0 mls/hr Documented by: Admin: 10/03/19 20:31 Dose: 1,000 mls/hr Documented by: JOSE Piperacillin/Tazobactam/Dextrose (Zosyn) 3.375 gm in 50 mls @ 100 mls/hr IV NOW ONE Stop: 10/03/19 22:21 Last Infusion: 10/03/19 23:00 Dose: 0 mls/hr Documented by: Admin: 10/03/19 22:19 Dose: 100 mls/hr Documented by: JOSE Vital Signs Vital signs: Vital Signs - 8 hr 10/03/19 18:16 10/03/19 18:25 10/03/19 18:30 Temperature 96.4 F L Pulse Rate 89 79 79 Respiratory Rate 18 22 25 H Blood Pressure 89/65 L Blood Pressure [Right Arm] 122/68 109/79 Pulse Oximetry 85 L 92 10/03/19 19:00 10/03/19 19:15 10/03/19 19:25 Temperature Pulse Rate 80 104 H 76 Respiratory Rate 22 33 H 24 Blood Pressure Blood Pressure [Right Arm] 109/79 95/61 145/69 H Pulse Oximetry 96 97 93 10/03/19 19:30 10/03/19 20:00 10/03/19 20:33 Temperature 96.4 F L Pulse Rate 71 72 71 Respiratory Rate 25 H 18 22 Blood Pressure Blood Pressure [Right Arm] 135/65 108/61 102/64 Pulse Oximetry 97 94 97 10/03/19 20:34 10/03/19 20:57 10/03/19 21:35 Temperature Pulse Rate 76 72 71 Respiratory Rate 18 22 24 Blood Pressure Blood Pressure [Right Arm] 100/60 94/58 L 98/61 Pulse Oximetry 93 97 100 10/03/19 22:24 10/03/19 22:46 10/03/19 23:10 Temperature 97.4 F L Pulse Rate 76 78 77 Respiratory Rate 24 24 Blood Pressure Blood Pressure [Right Arm] 107/58 L 100/58 L 90/54 L Pulse Oximetry 100 99 99 10/03/19 23:30 10/04/19 00:09 10/04/19 00:30 Temperature Pulse Rate 75 87 Respiratory Rate 16 26 H Blood Pressure Blood Pressure [Right Arm] 79/51 L 84/50 L 91/44 L Pulse Oximetry 100 94 10/04/19 01:00 10/04/19 01:30 10/04/19 01:43 Temperature Pulse Rate 99 H 100 H Respiratory Rate 17 13 Blood Pressure Blood Pressure [Right Arm] 80/51 L 81/49 L 82/55 L Pulse Oximetry 99 98 MDM - Weakness Lab Data Result diagrams: 10/03/19 19:00 10/03/19 21:14 Labs: Lab Results 10/03/19 10/03/19 10/03/19 Range/Units 19:00 19:00 19:00 WBC 9.4 (4.5-11.0) X10^3/uL RBC 4.69 (4.0-5.2) X10^6/uL Hgb 14.8 (12.0-16.0) g/dL Hct 45.9 (36-46) % MCV 98.0 (80-100) fL MCH 31.6 (26-34) PG MCHC 32.3 (30-36) % RDW 14.5 (11.6-14.8) % Plt Count 259 (150-400) X10^3/uL Neut % (Auto) 65.5 (50-75) % Lymph % (Auto) 25.6 (25-40) % [place] % (Auto) 5.8 (3-14) % Eos % (Auto) 1.6 L (2-4) % Baso % (Auto) 1.5 (0-2) % Neut # (Auto) 6100 (1956-4360) /uL Lymph # (Auto) 2400 (6793-8859) /uL [place] # (Auto) 500 (0-900) /uL Eos # (Auto) 200 (0-450) /uL Baso # (Auto) 100 (0-100) /uL PT 12.4 (10.1-12.7) SECONDS INR 1.1 (0.9-1.3) APTT 39 H (26.4-36.2) SECONDS Sodium (137-145) mmol/L Potassium (3.4-5.1) mmol/L Chloride (98-107) mmol/L Carbon Dioxide (22-32) mmol/L BUN (7-17) mg/dL Creatinine (0.52-1.04) mg/dL Estimated GFR (>60) mL/min BUN/Creatinine Ratio (6-22) Glucose (80-110) mg/dL Lactate (0.7-2.1) mmol/L Calcium (8.4-10.2) mg/dL Total Bilirubin (0.2-1.3) mg/dL AST (14-36) IU/L ALT (<35) IU/L Alkaline Phosphatase (38-126) U/L Total Creatine Kinase 39 (30-135) U/L CK-MB (CK-2) TNP CK-MB (CK-2) Rel Index TNP Troponin I 0.143 H* (0.01-0.034) ng/mL Total Protein (6.3-8.2) g/dL Albumin (3.5-5.0) g/dL Globulin (1.7-4.1) g/dL Albumin/Globulin Ratio (1.0-2.8) Urine Color Urine Appearance Urine pH (4.5-8.0) Ur Specific [place] (1.000-1.035) Urine Protein (Negative) Urine Glucose (UA) (Negative) g/dL Urine Ketones (NEGATIVE) Urine Occult Blood (Negative) Urine Nitrate (Negative) Urine Bilirubin (NEGATIVE) Urine Urobilinogen (0.2) E.U./dL Ur Leukocyte Esterase (NEGATIVE) Urine RBC (0-5/HPF) Urine WBC (0-5/HPF) Urine Bacteria (None) Hyaline Casts (None) Ur Culture Indicated? Ethyl Alcohol ( - 10) mg/dL 10/03/19 10/03/19 10/03/19 Range/Units 19:00 19:00 19:00 WBC (4.5-11.0) X10^3/uL RBC (4.0-5.2) X10^6/uL Hgb (12.0-16.0) g/dL Hct (36-46) % MCV (80-100) fL MCH (26-34) PG MCHC (30-36) % RDW (11.6-14.8) % Plt Count (150-400) X10^3/uL Neut % (Auto) (50-75) % Lymph % (Auto) (25-40) % [place] % (Auto) (3-14) % Eos % (Auto) (2-4) % Baso % (Auto) (0-2) % Neut # (Auto) (5721-6606) /uL Lymph # (Auto) (9788-2989) /uL [place] # (Auto) (0-900) /uL Eos # (Auto) (0-450) /uL Baso # (Auto) (0-100) /uL PT (10.1-12.7) SECONDS INR (0.9-1.3) APTT (26.4-36.2) SECONDS Sodium 162 H* (137-145) mmol/L Potassium 6.4 H* (3.4-5.1) mmol/L Chloride 126 H* (98-107) mmol/L Carbon Dioxide 16 L (22-32) mmol/L BUN 184 H* (7-17) mg/dL Creatinine 8.92 H* (0.52-1.04) mg/dL Estimated GFR 4.3 L (>60) mL/min BUN/Creatinine Ratio 20.6 (6-22) Glucose 127 H (80-110) mg/dL Lactate 3.6 H (0.7-2.1) mmol/L Calcium 11.1 H (8.4-10.2) mg/dL Total Bilirubin 1.2 (0.2-1.3) mg/dL AST 26 (14-36) IU/L ALT 17 (<35) IU/L Alkaline Phosphatase 64 (38-126) U/L Total Creatine Kinase (30-135) U/L CK-MB (CK-2) CK-MB (CK-2) Rel Index Troponin I (0.01-0.034) ng/mL Total Protein 9.5 H (6.3-8.2) g/dL Albumin 4.7 (3.5-5.0) g/dL Globulin 4.8 H (1.7-4.1) g/dL Albumin/Globulin Ratio 1.0 (1.0-2.8) Urine Color Urine Appearance Urine pH (4.5-8.0) Ur Specific [place] (1.000-1.035) Urine Protein (Negative) Urine Glucose (UA) (Negative) g/dL Urine Ketones (NEGATIVE) Urine Occult Blood (Negative) Urine Nitrate (Negative) Urine Bilirubin (NEGATIVE) Urine Urobilinogen (0.2) E.U./dL Ur Leukocyte Esterase (NEGATIVE) Urine RBC (0-5/HPF) Urine WBC (0-5/HPF) Urine Bacteria (None) Hyaline Casts (None) Ur Culture Indicated? Ethyl Alcohol < 10 ( - 10) mg/dL 10/03/19 10/03/19 10/03/19 Range/Units 20:00 21:14 21:14 WBC (4.5-11.0) X10^3/uL RBC (4.0-5.2) X10^6/uL Hgb (12.0-16.0) g/dL Hct (36-46) % MCV (80-100) fL MCH (26-34) PG MCHC (30-36) % RDW (11.6-14.8) % Plt Count (150-400) X10^3/uL Neut % (Auto) (50-75) % Lymph % (Auto) (25-40) % [place] % (Auto) (3-14) % Eos % (Auto) (2-4) % Baso % (Auto) (0-2) % Neut # (Auto) (5459-2519) /uL Lymph # (Auto) (0558-7006) /uL [place] # (Auto) (0-900) /uL Eos # (Auto) (0-450) /uL Baso # (Auto) (0-100) /uL PT (10.1-12.7) SECONDS INR (0.9-1.3) APTT (26.4-36.2) SECONDS Sodium 159 H* (137-145) mmol/L Potassium 6.0 H (3.4-5.1) mmol/L Chloride 129 H* (98-107) mmol/L Carbon Dioxide 17 L (22-32) mmol/L BUN 172 H* (7-17) mg/dL Creatinine 8.07 H* (0.52-1.04) mg/dL Estimated GFR 4.8 L (>60) mL/min BUN/Creatinine Ratio 21.3 (6-22) Glucose 97 (80-110) mg/dL Lactate 2.3 H (0.7-2.1) mmol/L Calcium 10.1 (8.4-10.2) mg/dL Total Bilirubin 0.8 (0.2-1.3) mg/dL AST 21 (14-36) IU/L ALT 14 (<35) IU/L Alkaline Phosphatase 56 (38-126) U/L Total Creatine Kinase 38 (30-135) U/L CK-MB (CK-2) TNP CK-MB (CK-2) Rel Index TNP Troponin I 0.127 H* (0.01-0.034) ng/mL Total Protein 8.0 (6.3-8.2) g/dL Albumin 4.0 (3.5-5.0) g/dL Globulin 4.0 (1.7-4.1) g/dL Albumin/Globulin Ratio 1.0 (1.0-2.8) Urine Color Yellow Urine Appearance Sl cloudy Urine pH 5.0 (4.5-8.0) Ur Specific [place] 1.025 (1.000-1.035) Urine Protein Trace H (Negative) Urine Glucose (UA) Negative (Negative) g/dL Urine Ketones Negative (NEGATIVE) Urine Occult Blood Trace-intact (Negative) Urine Nitrate Negative (Negative) Urine Bilirubin Negative (NEGATIVE) Urine Urobilinogen 0.2 (0.2) E.U./dL Ur Leukocyte Esterase 1+ H (NEGATIVE) Urine RBC None seen (0-5/HPF) Urine WBC 1-5/hpf (0-5/HPF) Urine Bacteria None seen (None) Hyaline Casts 0-1/lpf (None) Ur Culture Indicated? Specimen cultured Ethyl Alcohol ( - 10) mg/dL Imaging Data Chest x-ray: Radiologist Impression: 47 Carlos Jewell MD Find Patient Imaging - [place] 78 F 1940 ACTIVITY DATE EXAM STATUS AUTHOR 10/03/19 18:[address] [address] XRay Report Signed Patient: Wooten MMR#: [id number] : 1940Acct:[id number] Age/Sex: 78 / FDate of Service: 10/03/19 Loc: ED Accession Number: [id number] Procedure: XR chest 1V Ordering Provider: Carlos Jewell MD PROCEDURE: XR CHEST 1V INDICATIONS: Weakness TECHNIQUE: One view of the chest was acquired. COMPARISON: [facility], CHEST 2 VIEW, 09/10/2009, 12:24. FINDINGS: Surgical changes and devices: None. Lungs and pleura: Lungs are clear. Diffuse emphysema. No pleural effusions or pneumothorax. Mediastinum: Mediastinal contours appear normal. Heart size is normal. Bones and chest wall: No suspicious bony lesions. Overlying soft tissues appear unremarkable. IMPRESSION: Emphysema. No acute process. Dictated by: Kena Mason M.D. on 10/03/2019 at 20:17 Approved by: Kena Mason M.D. on 10/03/2019 at 20:17 ECG Data Attestation: I personally reviewed and interpreted this ECG as follows: (Normal sinus rhythm rate 76 beats per minute. Low-voltage in extremity leads. Nonspecific ST T wave changes. No ectopy. No acute ST elevation.) Critical Care Time Critical Care Time Critical Care Time: Yes Total Critical Care Time: 55 Attestation: Time included the initial assessment the patient, review of records, review EKG, radiology and lab data. Multiple clinical decisions were made. The clinical situation was discussed with the patient and her . Consultation was obtained with the accepting hospitalist. Discharge Plan Departure Patient Disposition: [facility] Clinical Impression: Acute dehydration, Acute hypernatremia, Acute hyperkalemia, Elevated lactic acid level, Elevated troponin Acute renal failure Qualifiers: Acute renal failure type: unspecified Qualified Code(s): N17.9 - Acute kidney failure, unspecified Discharge Date/Time: 10/04/19 01:48 Prescriptions: No Action doxazosin 1 mg tablet 1 mg PO HS Qty: 90 RF: 3 triamterene-hydrochlorothiazid [Maxzide] 75-50 mg tablet 1 tab PO QDAY Qty: 90 RF: 3 atenolol 100 mg tablet 100 mg PO QDAY Qty: 90 RF: 0 Prilosec OTC 20 mg tablet,delayed release (DR/EC) 20 mg PO DAILY RF: 0 Referrals: Ron Cordova MD [Primary Care Provider] -
--- NOTE | 2019-10-03 18:35 | DI.RAD.S_ITS ---
PROCEDURE: XR CHEST 1V INDICATIONS: Weakness TECHNIQUE: One view of the chest was acquired. COMPARISON: [facility], , CHEST 2 VIEW, 09/10/2009, 12:24. FINDINGS: Surgical changes and devices: None. Lungs and pleura: Lungs are clear. Diffuse emphysema. No pleural effusions or pneumothorax. Mediastinum: Mediastinal contours appear normal. Heart size is normal. Bones and chest wall: No suspicious bony lesions. Overlying soft tissues appear unremarkable. IMPRESSION: Emphysema. No acute process. Dictated by: Kena Mason M.D. on 10/03/2019 at 20:17 Approved by: Kena Mason M.D. on 10/03/2019 at 20:17
[2019-10-03] MEDS: SODIUM CHLORIDE 0.9% 1,000 ML 1000 ML IV (19:00)
[2019-10-03 19:06] LABS: Add Manual Diff / Slide Review NO; Basophils Absolute Auto 100 /uL (0-100); Basophils Percent Auto 1.5 % (0-2); Eosinophils Absolute Auto 200 /uL (0-450); Eosinophils Percent Auto 1.6 % (2-4); Hematocrit 45.9 % (36-46); Hemoglobin 14.8 g/dL (12.0-16.0); Lymphocytes Absolute Auto 2400 /uL (1100-4500); Lymphocytes Percent Auto 25.6 % (25-40); Mean Corpuscular HGB Conc 32.3 % (30-36); Mean Corpuscular Hemoglobin 31.6 PG (26-34); Monocytes Absolute Auto 500 /uL (0-900); Monocytes Percent Auto 5.8 % (3-14); Neutrophils Absolute Auto 6100 /uL (1500-7000); Neutrophils Percent Auto 65.5 % (50-75); Platelet Count 259 X10^3/uL (150-400); Red Blood Cell Count 4.69 X10^6/uL (4.0-5.2); Red Cell Distribution Width 14.5 % (11.6-14.8); White Blood Cell Count 9.4 X10^3/uL (4.5-11.0)
[2019-10-03 19:17] LABS: INR 1.1 (0.9-1.3); Prothrombin Time 12.4 SECONDS (10.1-12.7)
[2019-10-03 19:19] LABS: Alanine Aminotransferase 17 IU/L (<35); Albumin 4.7 g/dL (3.5-5.0); Alkaline Phosphatase 64 U/L (38-126); Aspartate Aminotransferase 26 IU/L (14-36); Bilirubin Total 1.2 mg/dL (0.2-1.3); Calcium 11.1 mg/dL (8.4-10.2); Carbon Dioxide 16 mmol/L (22-32); Chloride 126 mmol/L (98-107); Creatine Kinase 39 U/L (30-135); Estimated Glomerular Filt Rate 4.3 mL/min (>60); Globulin 4.8 g/dL (1.7-4.1); Glucose 127 mg/dL (80-110); HEMOLYSIS 32 (0-50); Total Protein 9.5 g/dL (6.3-8.2)
[2019-10-03 19:20] LABS: Lactate (Lactic Acid) 3.6 mmol/L (0.7-2.1); PTT Partial Thromboplastin Tim 39 SECONDS (26.4-36.2)
[2019-10-03 19:36] LABS: BUN Creatinine Ratio 20.6 (6-22)
[2019-10-03 19:42] LABS: Potassium 6.4 mmol/L (3.4-5.1); Sodium 162 mmol/L (137-145)
[2019-10-03 19:44] LABS: Blood Urea Nitrogen 184 mg/dL (7-17)
[2019-10-03 19:59] LABS: Ethanol (ETOH) < 10 mg/dL
[2019-10-03 20:06] LABS: Troponin I 0.143 ng/mL (0.01-0.034)
[2019-10-03] MEDS: LACTATED RINGERS 1,000 ML 1000 ML IV (20:31)
[2019-10-03 21:02] LABS: Reflexed Lactate in 2 Hours Y
[2019-10-03 21:27] LABS: Bacteria Urine None Seen; RBC Urine None Seen (0-5/HPF)
--- NOTE | 2019-10-03 21:31 | PC.NURSE ---
Patient resting in bed with fluids infusing. Remains in good spirits however has become more confused stating where is the dog you look so familiar to every staff member who enters room. Provider notified of mental status changes. Awaiting lab results for repeat labs and urine.
[2019-10-03 21:34] LABS: Appearance Urine UA SL CLOUDY; Bilirubin Urine UA NEGATIVE (NEGATIVE); Color Urine UA YELLOW; Glucose Urine UA NEGATIVE (Negative); Ketones Urine UA NEGATIVE (NEGATIVE); Leukocyte Esterase Urine UA 1+ (NEGATIVE); Nitrite Urine UA NEGATIVE (Negative); Occult Blood Urine UA TRACE-INTACT (Negative); Protein Urine UA TRACE (Negative); Specific Gravity Urine UA 1.025 (1.000-1.035); Urobilinogen Urine UA 0.2 E.U./dL (0.2)
[2019-10-03 21:36] LABS: Lactate 2HR (Lactic Acid Rflx) 2.3 mmol/L (0.7-2.1)
[2019-10-03 21:38] LABS: Alanine Aminotransferase 14 IU/L (<35); Alkaline Phosphatase 56 U/L (38-126); Aspartate Aminotransferase 21 IU/L (14-36); Bilirubin Total 0.8 mg/dL (0.2-1.3); Calcium 10.1 mg/dL (8.4-10.2); Carbon Dioxide 17 mmol/L (22-32); Creatine Kinase 38 U/L (30-135); Estimated Glomerular Filt Rate 4.8 mL/min (>60); Glucose 97 mg/dL (80-110); HEMOLYSIS < 15 (0-50)
[2019-10-03 21:48] LABS: Sodium 159 mmol/L (137-145)
[2019-10-03 21:49] LABS: Chloride 129 mmol/L (98-107)
[2019-10-03 21:57] LABS: BUN Creatinine Ratio 21.3 (6-22)
[2019-10-03 22:01] LABS: Troponin I 0.127 ng/mL (0.01-0.034)
[2019-10-03 22:02] LABS: Blood Urea Nitrogen 172 mg/dL (7-17)
[2019-10-03] MEDS: PIPERACILLIN-TAZO 3.375 GM/50 ML FROZ.PIGGY IV (22:19)
[2019-10-03 22:29] LABS: WBC Urine 1-5/HPF (0-5/HPF)
[2019-10-03 22:30] LABS: Culture Indicated Urine Specimen Cultured; Hyaline Casts Urine 0-1/LPF
[2019-10-03] MEDS: ASPIRIN EC 325 MG TABLET PO (23:16)
[2019-10-03] MEDS: LACTATED RINGERS 1,000 ML 200 ML IV (23:17)
[2019-10-04 00:09] VITALS: BP 84/50
[2019-10-04 00:30] VITALS: BP 91/44; PULSE 87; RESP 26; O2SAT 94
[2019-10-04 01:00] VITALS: BP 80/51; PULSE 99; RESP 17; O2SAT 99
[2019-10-04 01:30] VITALS: BP 81/49; PULSE 100; RESP 13; O2SAT 98
[2019-10-04 01:43] VITALS: BP 82/55
== END 2019-10-04 01:48 | disposition short-term general hospital (02) ==
PROVIDERS: Emergency Provider Emergency Medicine; PCP Student in an Organized Health Care Education/Training Program
DX: E86.0 Dehydration (principal); E87.0 Hyperosmolality and hypernatremia; E87.5 Hyperkalemia; R79.89 Other specified abnormal findings of blood chemistry; N17.9 Acute kidney failure, unspecified
CPT/HCPCS: 36415; 71045; 80053; 80320; 81001; 82550; 83605; 84484; 85025; 85610; 85730; 87077; 87086; 87185; 87186; 93005; 96361; 96365; 99285; 99291; J2543

== ENCOUNTER → 2019-10-24 12:21 | Outpatient (CLI) | payer MEDICARE, SELFPAY ==
[2019-10-24 13:39] LABS: Hematocrit 31.3 % (36-46); Hemoglobin 10.4 g/dL (12.0-16.0); Mean Corpuscular HGB Conc 33.1 % (30-36); Mean Corpuscular Hemoglobin 31.5 PG (26-34); Mean Corpuscular Volume 95.1 fL (80-100); Platelet Count 320 X10^3/uL (150-400); Red Blood Cell Count 3.29 X10^6/uL (4.0-5.2); White Blood Cell Count 4.4 X10^3/uL (4.5-11.0)
[2019-10-24 13:42] LABS: Add Manual Diff / Slide Review YES
[2019-10-24 13:59] LABS: HEMOLYSIS < 15 (0-50)
[2019-10-24 14:05] LABS: HEMOLYSIS < 15 (0-50); Iron 79 ug/dL (37-170)
[2019-10-24 14:06] LABS: BUN Creatinine Ratio 17.5 (6-22); Blood Urea Nitrogen 18 mg/dL (7-17); Calcium 9.6 mg/dL (8.4-10.2); Carbon Dioxide 23 mmol/L (22-32); Chloride 106 mmol/L (98-107); Estimated Glomerular Filt Rate 51.7 mL/min (>60); Glucose 95 mg/dL (80-110); Magnesium 1.6 mg/dL (1.6-2.3); Phosphorous 3.5 mg/dL (2.8-4.1); Potassium 3.7 mmol/L (3.4-5.1); Sodium 136 mmol/L (137-145); Uric Acid 4.4 mg/dL (2.5-6.2)
[2019-10-24 14:13] LABS: Anisocytosis 1+; Neutrophils Absolute Manual 1936 /uL (3000-5900); Nucleated Red Blood Cells 1 #/Diff; Total Cells Counted 100
[2019-10-24 14:15] LABS: Percent Iron Saturation 34 % (15-50); Total Iron Binding Capacity 233 ug/dL (265-497); Transferrin 180 mg/dL (206-381)
[2019-10-24 17:29] LABS: Vitamin D 25 Hydroxy (D3) 43.4 ng/mL (30.0-100.0)
[2019-10-25 02:56] LABS: Ferritin 302 ng/mL (11-264)
[2019-10-25 07:45] LABS: Parathyroid Hormone Int 25 pg/mL (15-65)
== END ==
PROVIDERS: PCP Student in an Organized Health Care Education/Training Program; Referring Provider Internal Medicine Nephrology; Visit Provider Internal Medicine Nephrology
DX: N18.5 Chronic kidney disease, stage 5 (principal)
CPT/HCPCS: 36415; 80048; 82306; 82728; 83540; 83550; 83735; 83970; 84100; 84550; 85025

== ENCOUNTER → 2020-01-02 12:00 | Outpatient (CLI) | payer MEDICARE, SELFPAY ==
--- NOTE | 2020-01-02 12:02 | DI.RAD.S_ITS ---
PROCEDURE: FL BARIUM SWALLOW W SPEECH INDICATIONS: Swallow difficulties with frequent coughing TECHNIQUE: Examination was conducted in conjunction with speech pathology per standard protocol. In the lateral projection, filming was performed of the patient swallowing. AP projection filming may also be performed with patient swallowing. COMPARISON: None. FINDINGS: Function: The oral preparatory phase appears normal, with proper containment. The subsequent oral propulsive phase, pharyngeal phase, and esophageal phase of swallowing also appear normal with all proffered substances. No laryngotracheal penetration or aspiration. No pathologic vallecular pooling. Morphology: No cricopharyngeal bar is identified. No cervical esophageal webs. No Zenker's diverticulum. No strictures. IMPRESSION: Normal examination. Please also refer to the dedicated speech therapy swallowing evaluation report which will be independently generated. Dictated by: Billy Dyson M.D. on 01/02/2020 at 14:45 Approved by: Billy Dyson M.D. on 01/02/2020 at 14:45
--- NOTE | 2020-01-02 17:48 | ST.SWALLOW ---
Visit Care Team Role Provider Type Ron Cordova MD Attending Provider Physician Primary Care Provider Referring Provider Specialty: Internal Medicine Address: [address] [place] [address], [address], [place], [address] Email: [email or web address] Modified Barium Swallow Study TOXICOLOGIST Modified Barium Swallow Study Start: 01/02/20 17:28 Freq: Status: Active Protocol: Document 01/02/20 17:29 THANH (Rec: 01/02/20 17:48 THANH [id number]) Modified Barium Swallow Study Total Time Visit Start Time 13:30 Visit Stop Time 14:00 Total Visit Minutes 30 Visit Information Insurance Information Medicare Referral Referring Physician Dr. Ron Cordova Reason for Referral Swallow difficulties with frequent coughing Setting Setting Outpatient Care Patient Information Identification Type Name,ID Card Patient History The pt is a pleasant 79-yr-old female who was observed to be coughing and having difficulty swallowing during a hospital stay in September 2019. Outpatient MBSS was recommended at that time; however, d/t COVID-19, outpatient procedures were not available at that time. The pt attends today for evaluation of swallow and aspiration risk. She denied any s/sx of dysphagia. Subjective Observations The pt arrived on time. She was pleasant and conversant throughout the evaluation. She was unsure what the appointment was for but when told, was agreeable. Patient Positioning Position View Lateral Imaging Lateral View Textures Administered Trials Presented Thin Liquid via Spoon,Thin Liquid via Cup,[place] Liquid via Spoon,[place] Liquid via Cup,Honey Liquid via Spoon, Pudding Thick Liquid via Spoon ,Dysphagia Blenderized Textures,Regular Textures Oral Phase Source: MBSIMP (TM) (C) Bolus Specific Scoring Grid Lip Closure No Impairment (WNL) Tongue Control During Bolus Hold No Impairment (WNL) Bolus Prep/Mastication No Impairment (WNL) Bolus Transport/Lingual Motion No Impairment (WNL) A/P Lingual Propulsion Delay No Oral Residue Mild Impairment Residue Clearing WFL Nasal Regurgitation No Additional Oral Phase Observations Oral Peripheral Exam: Symmetrical features WNL of strength and ROM. Mildly decreased coordination with shifting air laterally from cheek to cheek; otherwise WNL. Pt has natural dentition with one lower right molar missing . Teeth are in good condition for age. Soft palate elevates upon phonation. Oral Phase: WFL. Mild oral residue observed that occasionally passed to pharynx post swallow but cleared with subsequent swallow. Pharyngeal Phase Source: MBSIMP (TM) (C) Bolus Specific Scoring Grid Delayed Initiation of Pharyngeal Swallow No Soft Palate Elevation No Impairment (WNL) Tongue Base Strength/Range of Motion WFL Residue Along the Tongue Base Yes: Trace to mild. Occ spilling to or past vallecula Clearance of Residue Along Tongue Base WFL Laryngeal Elevation No Impairment (WNL) Anterior Hyoid Movement WFL Epiglottic Range of Motion No Impairment (WNL) Vallecular Residue Yes Clearance of Vallecular Residue Minimal Impairment Laryngeal Vestibular Closure No Impairment (WNL) Pharyngeal Stripping Wave WFL Posterior Pharyngeal Wall Residue No Upper Esophageal Sphincter Opening No Impairment (WNL) Residue in the Pyriform Sinuses Yes: Occ trace, cleared with subsequent swallow Clearance of Residue in the Pyriform No Impairment (WNL) Sinuses Pharyngoesophageal Backflow Observed No Additional Pharyngeal Phase Observations No laryngeal penetration or tracheal aspiration was observed with all trials. Trace to mild pharyngeal residue observed at vallecula, aryepiglottic folds and pyriform sinuses. Occasionally spilling to aryepiglottic folds was noted before pt spontaneously swallowed to clear. Pt achieved adequate clearance of pharyngeal residue with subsequent dry swallows. Mildly reduced base of tongue and pharyngeal stripping wave observed, consistent with pt's age. A/P View Clinical Impressions Findings The pt presents with normal swallow function for age. Occasional drainage of oral or pharyngeal residue past vallecula prior to onset of swallow was observed, increasing the pt's risk of aspiration. However, no penetration or aspiration was observed during this study, and the pt spontaneously swallowed to clear residue effectively. Patient Appropriate for Therapy No Recommendations Diet Liquids Order Thin Diet Order Regular Medication Recommendation As Tolerated Aspiration Precautions Recommended Precautions Upright at 90 Degrees,Small Bites/Sips Treatment Plan Placement Recommendation After Discharge Home
== END ==
PROVIDERS: PCP Student in an Organized Health Care Education/Training Program; Referring Provider Student in an Organized Health Care Education/Training Program; Visit Provider Student in an Organized Health Care Education/Training Program
DX: R13.10 Dysphagia, unspecified (principal); R05 Cough
CPT/HCPCS: 74230; 92611

== ENCOUNTER → 2020-01-16 12:34 | Outpatient (CLI) | payer MEDICARE, SELFPAY | PROVIDERS: PCP Student in an Organized Health Care Education/Training Program; Referring Provider Student in an Organized Health Care Education/Training Program; Visit Provider Student in an Organized Health Care Education/Training Program | DX: M81.0 Age-related osteoporosis without current pathological fracture (principal); Z78.0 Asymptomatic menopausal state; Z91.89 Other specified personal risk factors, not elsewhere classified | CPT/HCPCS: 77080 ==

== ENCOUNTER → 2020-09-17 13:09 | Outpatient (CLI) | payer MEDICARE, SELFPAY ==
--- NOTE | 2020-09-17 13:11 | DI.RAD.S_ITS ---
PROCEDURE: XR CLAVICLE RT INDICATIONS: Clavicle deformity w/o trauma TECHNIQUE: 2 views of the clavicle were acquired. COMPARISON: None. FINDINGS: Bones: No fractures or dislocations. No suspicious bony lesions. Mild right acromioclavicular joint osteoarthritis. Soft tissues: No suspicious soft tissue calcifications. Probable foreign bodies external to the patient project over the right axilla. IMPRESSION: 1. Mild right acromioclavicular joint osteoarthritis. 2. No fracture. No acute osseous lesion. If symptoms and/or clinical suspicion for pathology persists, further assessment with advanced imaging (e.g. CT, MRI or bone scan) should be considered. Dictated by: Ivana Espinoza MD, PhD on 09/17/2020 at 17:42 Approved by: Ivana Espinoza MD, PhD on 09/17/2020 at 17:43
== END ==
PROVIDERS: PCP Student in an Organized Health Care Education/Training Program; Referring Provider Student in an Organized Health Care Education/Training Program; Visit Provider Student in an Organized Health Care Education/Training Program
DX: M95.8 Other specified acquired deformities of musculoskeletal system (principal); M19.011 Primary osteoarthritis, right shoulder
CPT/HCPCS: 73000

== ENCOUNTER → 2020-10-13 10:35 | Outpatient (CLI) | payer MEDICARE, OTHER, SELFPAY ==
--- NOTE | 2020-10-13 10:37 | DI.RAD.S_ITS ---
PROCEDURE: [place] BARIUM SWALLOW W SPEECH INDICATIONS: Dysphagia/choking COMPARISON: TECHNIQUE: Examination was conducted in conjunction with speech pathology per standard protocol. In the lateral projection, filming was performed of the patient swallowing. AP projection filming may also be performed with patient swallowing. COMPARISON: [facility], , [place] BARIUM SWALLOW W SPEECH, 01/02/2020, 12:32. FINDINGS: Function: The oral preparatory phase appears normal, with proper containment. The subsequent oral propulsive phase, pharyngeal phase, and esophageal phase of swallowing also appear normal with all proffered substances. No laryngotracheal penetration or aspiration. No pathologic vallecular pooling. Morphology: No cricopharyngeal bar is identified. No cervical esophageal webs. No Zenker's diverticulum. No strictures. IMPRESSION: Normal examination. Please also refer to the dedicated speech therapy swallowing evaluation report, which will be independently generated. Dictated by: Billy Dyson M.D. on 10/13/2020 at 12:57 Approved by: Billy Dyson M.D. on 10/13/2020 at 12:57
--- NOTE | 2020-10-13 17:18 | ST.SWALLOW ---
Visit Care Team Role Provider Type Referring Provider Specialty: Address: Phone: Fax: Email: Ron Cordova MD Primary Care Provider Physician Specialty: Internal Medicine Address: [address] [place] [address], [address] [place] [address], [id number] Email: [email or web address] Attending Provider Speech Therapist Specialty: Speech Therapy Address: Phone: Fax: Email: Modified Barium Swallow Study BUDGET RECORD CLERK Clinical Instructor Line Start: 10/13/20 12:53 Freq: Status: Active Protocol: Document 10/13/20 17:17 LNK (Rec: 10/13/20 17:18 LNK [id number]) Clinical Instructor Signature Clinical Instructor Clinical Instructor Yes BUDGET RECORD CLERK Modified Barium Swallow Study Start: 10/13/20 12:53 Freq: Status: Active Protocol: Document 10/13/20 12:57 HM (Rec: 10/13/20 13:22 HM [id number]) Modified Barium Swallow Study Total Time Visit Start Time 11:30 Visit Stop Time 12:00 Total Visit Minutes 30 Visit Information Visit Number 1 Referral Referring Physician Ron Cordova Reason for Referral Suspected pharyngeoesophageal dysphagia Setting Setting Outpatient Care Patient Information Identification Type Name,Date of Patient History Conor is an 79-year-old female who was referred by her primary care provider. Per a chart review, pt is cachectic. She denied choking on foods but reported coughing up secretions after swallowing foods. She reportedly has a habit of drinking scotch prior to dinner. A MBSS was completed in December 2019 with no significant findings. During this visit, pt reported difficulty swallowing in the past but believes it's getting better as she had no difficulty eating salmon recently. Subjective Observations Pt arrived on time and actively engaged in conversation. She vocalized concern with the pill size and barium flavor, but completed all study procedures following explanation of each step. Patient Positioning Position View Lateral Imaging Lateral View Textures Administered Trials Presented Thin Liquid via Spoon,Thin Liquid via Cup,Pudding Thick Liquid via Spoon,Regular Textures,Barium Tablet Oral Phase Source: MBSIMP (TM) (C) Bolus Specific Scoring Grid Lip Closure No Impairment (WNL) Tongue Control During Bolus Hold No Impairment (WNL) Bolus Prep/Mastication No Impairment (WNL) Bolus Transport/Lingual Motion WFL A/P Lingual Propulsion Delay Yes: Slight delay with pudding texture; WFL. Oral Residue WFL Residue Clearing No Impairment (WNL) Nasal Regurgitation No Additional Oral Phase Observations Oral Peripheral Exam: Symmetrical features WFL for strength and ROM. Mildly reduced anterior-superior tongue movement. Pt has natural dentition with one lower right molar missing. Soft palate elevates upon phonation. Oral Phase: WFL. Mild anterior -posterior movement delay during pudding texture trial, but otherwise within normal limits. Pharyngeal Phase Source: MBSIMP (TM) (C) Bolus Specific Scoring Grid Delayed Initiation of Pharyngeal Swallow No Soft Palate Elevation No Impairment (WNL) Tongue Base Strength/Range of Motion WFL Residue Along the Tongue Base Yes: Trace to minimal amount with thin liquid sequential swallow. Clearance of Residue Along Tongue Base WFL Laryngeal Elevation No Impairment (WNL) Anterior Hyoid Movement No Impairment (WNL) Epiglottic Range of Motion No Impairment (WNL) Vallecular Residue Yes: Minimal. No penetration. Clearance of Vallecular Residue Minimal Impairment Laryngeal Vestibular Closure No Impairment (WNL) Pharyngeal Stripping Wave WFL Pharyngeal Contraction WFL Posterior Pharyngeal Wall Residue Yes: Trace amounts. Clearance of Posterior Pharyngeal Wall WFL Residue Upper Esophageal Sphincter Opening No Impairment (WNL) Residue in the Pyriform Sinuses Yes: Trace amounts. Clearance of Residue in the Pyriform WFL Sinuses Esophageal Clearance Upright Position No Impairment (WNL) Pharyngoesophageal Backflow Observed No Additional Pharyngeal Phase Observations No laryngeal penetration or tracheal aspiration observed throughout all trials. Mild tongue base weakness and reduced pharyngeal stripping wave observed, which is typical for pt's age. Trace to minimal residue within pharyngeal structures. Notable osteophyte observed on C-6, which may contribute to pt's sensation of something stuck in that area. A/P View Clinical Impressions Findings Pt demonstrated a normal swallow given her age. No signs or symptoms of aspiration observed during this study. Following all MBS trials, she regurgitated x2, once with barium contrast and once with phlegm only. Suspected to be related to anxiety around the pill size and barium flavor. Patient Appropriate for Therapy No Recommendations Diet Liquids Order Thin Diet Order Regular Medication Recommendation As Tolerated Treatment Plan Compensatory Strategies Recommendations Sitting Upright (90 deg),Small Bites and Sips Placement Recommendation After Discharge Home
--- NOTE | 2020-10-13 17:18 | ST.SWALLOW ---
Visit Care Team Role Provider Type Referring Provider Specialty: Address: Phone: Fax: Email: Ron Cordova MD Primary Care Provider Physician Specialty: Internal Medicine Address: [address] [place] [address], [address] [place] [address], [id number] Email: [email or web address] GENTRY Martin Attending Provider Speech Therapist Specialty: Speech Therapy Address: Phone: Fax: Email: Modified Barium Swallow Study SALES COMPENSATION ANALYST Clinical Instructor Line Start: 10/13/20 12:53 Freq: Status: Active Protocol: Document 10/13/20 17:17 LNK (Rec: 10/13/20 17:18 LNK [id number]) Clinical Instructor Signature Clinical Instructor Clinical Instructor Yes SALES COMPENSATION ANALYST Modified Barium Swallow Study Start: 10/13/20 12:53 Freq: Status: Active Protocol: Document 10/13/20 12:57 HM (Rec: 10/13/20 13:22 HM [id number]) Modified Barium Swallow Study Total Time Visit Start Time 11:30 Visit Stop Time 12:00 Total Visit Minutes 30 Visit Information Visit Number 1 Referral Referring Physician Ron Cordova Reason for Referral Suspected pharyngeoesophageal dysphagia Setting Setting Outpatient Care Patient Information Identification Type Name,Date of Patient History Conor is an 79-year-old female who was referred by her primary care provider. Per a chart review, pt is cachectic. She denied choking on foods but reported coughing up secretions after swallowing foods. She reportedly has a habit of drinking scotch prior to dinner. A MBSS was completed in December 2019 with no significant findings. During this visit, pt reported difficulty swallowing in the past but believes it's getting better as she had no difficulty eating salmon recently. Subjective Observations Pt arrived on time and actively engaged in conversation. She vocalized concern with the pill size and barium flavor, but completed all study procedures following explanation of each step. Patient Positioning Position View Lateral Imaging Lateral View Textures Administered Trials Presented Thin Liquid via Spoon,Thin Liquid via Cup,Pudding Thick Liquid via Spoon,Regular Textures,Barium Tablet Oral Phase Source: MBSIMP (TM) (C) Bolus Specific Scoring Grid Lip Closure No Impairment (WNL) Tongue Control During Bolus Hold No Impairment (WNL) Bolus Prep/Mastication No Impairment (WNL) Bolus Transport/Lingual Motion WFL A/P Lingual Propulsion Delay Yes: Slight delay with pudding texture; WFL. Oral Residue WFL Residue Clearing No Impairment (WNL) Nasal Regurgitation No Additional Oral Phase Observations Oral Peripheral Exam: Symmetrical features WFL for strength and ROM. Mildly reduced anterior-superior tongue movement. Pt has natural dentition with one lower right molar missing. Soft palate elevates upon phonation. Oral Phase: WFL. Mild anterior -posterior movement delay during pudding texture trial, but otherwise within normal limits. Pharyngeal Phase Source: MBSIMP (TM) (C) Bolus Specific Scoring Grid Delayed Initiation of Pharyngeal Swallow No Soft Palate Elevation No Impairment (WNL) Tongue Base Strength/Range of Motion WFL Residue Along the Tongue Base Yes: Trace to minimal amount with thin liquid sequential swallow. Clearance of Residue Along Tongue Base WFL Laryngeal Elevation No Impairment (WNL) Anterior Hyoid Movement No Impairment (WNL) Epiglottic Range of Motion No Impairment (WNL) Vallecular Residue Yes: Minimal. No penetration. Clearance of Vallecular Residue Minimal Impairment Laryngeal Vestibular Closure No Impairment (WNL) Pharyngeal Stripping Wave WFL Pharyngeal Contraction WFL Posterior Pharyngeal Wall Residue Yes: Trace amounts. Clearance of Posterior Pharyngeal Wall WFL Residue Upper Esophageal Sphincter Opening No Impairment (WNL) Residue in the Pyriform Sinuses Yes: Trace amounts. Clearance of Residue in the Pyriform WFL Sinuses Esophageal Clearance Upright Position No Impairment (WNL) Pharyngoesophageal Backflow Observed No Additional Pharyngeal Phase Observations No laryngeal penetration or tracheal aspiration observed throughout all trials. Mild tongue base weakness and reduced pharyngeal stripping wave observed, which is typical for pt's age. Trace to minimal residue within pharyngeal structures. Notable osteophyte observed on C-6, which may contribute to pt's sensation of something stuck in that area. A/P View Clinical Impressions Findings Pt demonstrated a normal swallow given her age. No signs or symptoms of aspiration observed during this study. Following all MBS trials, she regurgitated x2, once with barium contrast and once with phlegm only. Suspected to be related to anxiety around the pill size and barium flavor. Patient Appropriate for Therapy No Recommendations Diet Liquids Order Thin Diet Order Regular Medication Recommendation As Tolerated Treatment Plan Compensatory Strategies Recommendations Sitting Upright (90 deg),Small Bites and Sips Placement Recommendation After Discharge Home
== END ==
PROVIDERS: PCP Student in an Organized Health Care Education/Training Program; Referring Provider Student in an Organized Health Care Education/Training Program; Visit Provider Student in an Organized Health Care Education/Training Program
DX: R13.14 Dysphagia, pharyngoesophageal phase (principal)
CPT/HCPCS: 74230; 92611

== ENCOUNTER → 2020-12-02 13:09 | Outpatient (CLI) | payer MEDICARE, SELFPAY ==
[2020-12-02 13:31] LABS: Add Manual Diff / Slide Review NO; Basophils Absolute Auto 100 /uL (0-100); Basophils Percent Auto 1.2 % (0-2); Eosinophils Absolute Auto 200 /uL (0-450); Eosinophils Percent Auto 3.3 % (2-4); Hematocrit 39.3 % (36-46); Lymphocytes Absolute Auto 1800 /uL (1100-4500); Lymphocytes Percent Auto 26.1 % (25-40); Mean Corpuscular HGB Conc 33.2 % (30-36); Mean Corpuscular Hemoglobin 32.7 PG (26-34); Mean Corpuscular Volume 98.4 fL (80-100); Monocytes Absolute Auto 500 /uL (0-900); Monocytes Percent Auto 6.8 % (3-14); Neutrophils Absolute Auto 4400 /uL (1500-7000); Neutrophils Percent Auto 62.6 % (50-75); Platelet Count 241 X10^3/uL (150-400); Red Blood Cell Count 3.99 X10^6/uL (4.0-5.2); Red Cell Distribution Width 14.1 % (11.6-14.8)
[2020-12-02 13:47] LABS: Blood Urea Nitrogen 21 mg/dL (7-17); Carbon Dioxide 29 mmol/L (22-32); Chloride 104 mmol/L (98-107); Estimated Glomerular Filt Rate > 60.0 mL/min (>60); Glucose 96 mg/dL (80-110); HEMOLYSIS < 15 (0-50); Potassium 4.3 mmol/L (3.4-5.1); Sodium 139 mmol/L (137-145)
[2020-12-02 14:50] LABS: Vitamin D 25 Hydroxy (D3) 59.8 ng/mL (30.0-100.0)
== END ==
PROVIDERS: PCP Student in an Organized Health Care Education/Training Program; Referring Provider Student in an Organized Health Care Education/Training Program; Visit Provider Student in an Organized Health Care Education/Training Program
DX: I10 Essential (primary) hypertension (principal); M81.0 Age-related osteoporosis without current pathological fracture; Z86.2 Personal history of diseases of the blood and blood-forming organs and certain disorders involving the immune mechanism
CPT/HCPCS: 36415; 80048; 82306; 85025

== ENCOUNTER 2021-07-13 17:47 | Emergency (ER) | payer MEDICARE, SELFPAY ==
[2021-07-13 17:45] VITALS: BP 137/103; PULSE 95; RESP 20; O2SAT 94
--- NOTE | 2021-07-13 17:47 | DI.CT.S_ITS ---
PROCEDURE: CT CERVICAL SPINE WO CON INDICATIONS: fall TECHNIQUE: Noncontrast 3 mm thick sections acquired from the skull base to the T4 level. Sagittal and coronal reformats were then constructed. For radiation dose reduction, the following was used: automated exposure control, adjustment of mA and/or kV according to patient size. COMPARISON: None. FINDINGS: Image quality: Degraded by patient motion artifact. Bones: No fractures or dislocations. Visualized superior ribs are intact. Spine degenerative disc disease and facet arthropathy. Soft tissues: Prevertebral soft tissues are normal in thickness. No paravertebral hematomas. No apical pneumothoraces. IMPRESSION: No fracture within limitations related to motion artifact. No acute osseous lesion within limitations related to motion artifact. If symptoms and/or clinical suspicion for pathology persists, evaluation with MRI should be considered for further assessment. Dictated by: Ivana Espinoza MD, PhD on 07/13/2021 at 17:42 Approved by: Ivana Espinoza MD, PhD on 07/13/2021 at 17:45
--- NOTE | 2021-07-13 17:47 | DI.CT.S_ITS ---
PROCEDURE: CT HEAD/BRAIN WO CON INDICATIONS: fall, head lac TECHNIQUE: Noncontrast 4.5 mm thick angled axial sections acquired from the foramen magnum to the vertex, with coronal and sagittal reformats. For radiation dose reduction, the following was used: automated exposure control, adjustment of mA and/or kV according to patient size. COMPARISON: None. FINDINGS: Image quality: Excellent. CSF spaces: Basal cisterns are patent. No extra-axial fluid collections. The ventricles are symmetric in size and shape. Brain: No intracranial bleeds or masses. There is moderate cerebral volume loss for age, with resultant ventricular and sulcal prominence. There are moderate periventricular and deep white matter chronic small vessel ischemic changes. There is intracranial internal carotid artery atherosclerosis. Skull and face: Calvarium and visualized facial bones appear intact, without suspicious lesions. Right parietal scalp contusion and laceration. Sinuses: Visualized sinuses and mastoids are clear. IMPRESSION: 1. No acute intracranial abnormalities. No intracranial bleed. 2. Cerebral volume loss and chronic microvascular ischemic changes. Dictated by: Marco Jonas M.D. on 07/13/2021 at 18:44 Approved by: Marco Jonas M.D. on 07/13/2021 at 18:45
--- NOTE | 2021-07-13 17:48 | PC.NURSE ---
per EMS pt's states pt is normal in the morning but she becomes confused in the afternoon, her behavior at this time is normal for this time of day.
[2021-07-13] MEDS: HALOPERIDOL 5 MG/ML VIAL 2 MG IV (17:55)
--- NOTE | 2021-07-13 17:55 | PC.NURSE ---
Pt uncooperative, pulled c-collar off at time of triage, pulled vital monitors off and refusing. Pt continuously educated on plan of care and reminded of event, pt does not recall fall or endorse pain. Dr Gunderson called to bedside assessed cspine, c-collar left off.
--- NOTE | 2021-07-13 17:58 | PC.NURSE ---
Attempted to leave pulse ox and blood pressure cuff on pt again, pt pulled both off. Pt reminded of education and indications for care. Pt arrived and new IV placed in his presence.
--- NOTE | 2021-07-13 18:00 | PC.NURSE ---
Pt right head wound bleeding controlled, no dressing present.
--- NOTE | 2021-07-13 18:35 | ED_ITS ---
HPI - Fall General Chief Complaint: Fall Stated Complaint: fall, hit head w/ laceration, confused. Time Seen by Provider: 07/13/21 17:47 Source: EMS Mode of arrival: EMS History of Present Illness HPI Narrative: 80-year-old female of hypertension she apparently gets around body a wheelchair today she fell out and hit her head on the step stool. No loss of consciousness. She is not on any anti-platelet or anticoagulation medication. She has a large laceration of her head. She is quite confused. states that she did drink some alcohol today, she typically has 1 shot daily. She typically is very unsteady on her feet and very rarely falls out of her wheelchair but is often very stubborn. Related Data Previous Rx's Medication Instructions Recorded alendronate 70 mg tablet 70 mg PO QWEEK #12 tab 02/20/20 atenolol 25 mg tablet See Rx Instructions .ROUTE 01/15/21 .COMPLEX #90 tab Allergies Allergy/AdvReac Type Severity Reaction Status Date / Time amlodipine [AMLODIPINE] Allergy Mild Verified 03/23/21 12:41 lisinopril [LISINOPRIL] Allergy Mild Verified 03/23/21 12:41 metoclopramide Allergy Mild Verified 03/23/21 12:41 [METOCLOPRAMIDE] Review of Systems Review of Systems Narrative: GENERAL: Denies chills, fatigue, malaise, fever, sweats, travel HEENT: Denies sinus pain, ear pain, sore throat, difficulty swallowing, neck pain RESPIRATORY: Denies dyspnea, cough, wheezing, hemoptysis, sputum. CARDIOVASCULAR: Denies chest pain, palpitations, orthopnea, edema GASTROINTESTINAL: Denies nausea, vomiting, abdominal pain, diarrhea, constipation, melena. : Denies dysuria, frequency, incontinence, hematuria, urinary retention, flank pain. MUSCULOSKELETAL: Denies weakness, joint pain, or bony pain SKIN: Large laceration see HPI NEUROLOGIC: Denies weakness, dizziness, headache, numbness, change in speech, confusion PSYCHIATRIC: No concerning psychosocial issues. 12 point review of systems is negative except for those stated above and HPI Patient History Medical History (Updated 07/13/21 @ 21:10 by Anaid Haji DO) Arthritis (~2013) Cholelithiasis (~06/2017) Colon polyps (~2006) Diarrhea Fatty liver (~01/2014) Fibroids Foot fracture, left GERD (gastroesophageal reflux disease) (~01/2014) Hypertension Surgical History History of back surgery History of tonsillectomy and adenoidectomy History of total abdominal hysterectomy and bilateral salpingo-oophorectomy Hx of hernia repair Hx of surgical procedure Family History Father Cancer Mother Hypertension Social History Smoking Status: Former smoker Smoking Status: Former smoker alcohol intake frequency: 0-2 drinks per day Substance Use Type: does not use Exam Initial Vital Signs Initial Vital Signs: Vital Signs Pulse Rate 95 H 07/13/21 17:45 Respiratory Rate 20 07/13/21 17:45 Blood Pressure 137/103 H 07/13/21 17:45 Pulse Oximetry 94 07/13/21 17:45 GENERAL: 80-year-old female awake alert HEENT: Head 11cm laceration or right side of head pupils reactive, face symmetric, moist mucous membranes, neck nontender CARDIOVASCULAR: Regular rate and rhythm without murmurs, rubs or gallops. RESPIRATORY: Breath sounds equal bilaterally, no wheezes rales or rhonchi. ABDOMEN: Soft, nontender. Normoactive bowel sounds all 4 quadrants. No guarding or rebound. EXTREMITIES: Normal range of motion, no clubbing or edema. Neurovascularly intact NEUROLOGICAL: Moving all extremities SKIN: Warm, dry, no laceration, no petechiae, no rashes or lesions. Procedures Laceration Repair Laceration 1: Site: scalp Side (If applicable): right Size (cm): 11 Description: linear Depth: simple, single layer Local Anesthetic: lidocaine 1% and with epi Amount of anesthesia used (mL): 10 Skin layer closed with: al Number of sutures: 11 Course Orders Ordered: Discontinued Medications Diphtheria/Tetanus/Acell Pertussis (Tet,Diph,Pertuss(Acell),Vac/Pf 0.5 Ml Syringe) 0.5 ml IM .ONCE ONE Stop: 07/13/21 18:47 Last Admin: 07/13/21 19:33 Dose: 0.5 ml Documented by: LOU Haloperidol (Haloperidol 5 Mg/Ml Vial) 2 mg IV NOW ONE Stop: 07/13/21 17:49 Last Admin: 07/13/21 17:55 Dose: 2 mg Documented by: DEBORAH Lidocaine/Epinephrine (Lidocaine 1% W/Epi) 1 ml SUBCUT NOW ONE Stop: 07/13/21 18:47 Last Admin: 07/13/21 20:40 Dose: 1 ml Documented by: SAMUEL Vital Signs Vital signs: Vital Signs - 8 hr 07/13/21 21:03 Pulse Rate 95 H Respiratory Rate 16 Blood Pressure 118/84 Pulse Oximetry 95 MDM - Fall Lab Data Result diagrams: 07/13/21 17:54 07/13/21 17:54 Labs: Lab Results 07/13/21 07/13/21 Range/Units 17:54 17:54 WBC 5.9 (4.5-11.0) X10^3/uL RBC 3.55 L (4.0-5.2) X10^6/uL Hgb 11.8 L (12.0-16.0) g/dL Hct 34.9 L (36-46) % MCV 98.4 (80-100) fL MCH 33.2 (26-34) PG MCHC 33.8 (30-36) % RDW 14.9 H (11.6-14.8) % Plt Count 234 (150-400) X10^3/uL Neut % (Auto) 41.1 L (50-75) % Lymph % (Auto) 48.5 H (25-40) % Hall % (Auto) 7.9 (3-14) % Eos % (Auto) 1.7 L (2-4) % Baso % (Auto) 0.8 (0-2) % Neut # (Auto) 2400 (8153-6060) /uL Lymph # (Auto) 2900 (0996-8193) /uL Hall # (Auto) 500 (0-900) /uL Eos # (Auto) 100 (0-450) /uL Baso # (Auto) 0 (0-100) /uL Sodium 138 (137-145) mmol/L Potassium 3.6 (3.4-5.1) mmol/L Chloride 102 (98-107) mmol/L Carbon Dioxide 26 (22-32) mmol/L BUN 17 (7-17) mg/dL Creatinine 0.79 (0.52-1.04) mg/dL Estimated GFR > 60.0 (>60) mL/min BUN/Creatinine Ratio 21.5 (6-22) Glucose 110 (80-110) mg/dL Calcium 9.6 (8.4-10.2) mg/dL Total Bilirubin 0.3 (0.2-1.3) mg/dL AST 47 H (14-36) IU/L ALT 32 (<35) IU/L Alkaline Phosphatase 68 (38-126) U/L Total Protein 8.1 (6.3-8.2) g/dL Albumin 4.5 (3.5-5.0) g/dL Globulin 3.6 (1.7-4.1) g/dL Albumin/Globulin Ratio 1.3 (1.0-2.8) Imaging Data CT scan - head: Radiologist's Impression: [facility] is [facility]. No intracranial abnormalities. No intracranial bleed. Cerebral pneumonia now chronic microvascular ischemic changes CT - cervical spine: Radiologist's Impression: For port and PACs but did not get transferred over: No fracture within limitations related to motion artifact. No acute osseous lesion within the guillermina ent's related to motion artifact. MDM Narrative Medical decision making narrative: Patient is found have large laceration on her head. CT scans are negative blood work is overall reassuring. Of she does ambulate with a walker quite well. At this time no need for admission. Discharge Plan Departure Patient Disposition: Home Clinical Impression: Laceration of head Instructions: DI for Laceration Repair -- [place], How to Prevent Falls Activity Restrictions/Additional Instructions: *You have been diagnosed with fall, head laceration *What to do: Al removed in about 7 days. May wash hair with she improved condition or however no hair cut until al have been removed. Please monitor for infection. *Continue to take medications as directed Tylenol 650 mg every 4-6 hours if needed for [id number] pain *Follow up with your primary care provider in 2-3 days or call [phone] *Return to ER if you should have increased vomiting, confusion, increased falls or any new, worsening or concerning symptoms Prescriptions: No Action atenolol 25 mg tablet See Rx Instructions .ROUTE .COMPLEX Qty: 90 3RF Dose Instruction: take 1 tablet by mouth once daily Rx Instructions: take 1 tablet by mouth once daily alendronate 70 mg tablet 70 mg PO QWEEK Qty: 12 3RF Referrals: Ron Cordova MD [Primary Care Provider] -
[2021-07-13 18:57] LABS: Add Manual Diff / Slide Review NO; Basophils Absolute Auto 0 /uL (0-100); Basophils Percent Auto 0.8 % (0-2); Eosinophils Absolute Auto 100 /uL (0-450); Eosinophils Percent Auto 1.7 % (2-4); Hematocrit 34.9 % (36-46); Hemoglobin 11.8 g/dL (12.0-16.0); Lymphocytes Absolute Auto 2900 /uL (1100-4500); Lymphocytes Percent Auto 48.5 % (25-40); Mean Corpuscular HGB Conc 33.8 % (30-36); Mean Corpuscular Hemoglobin 33.2 PG (26-34); Mean Corpuscular Volume 98.4 fL (80-100); Monocytes Absolute Auto 500 /uL (0-900); Monocytes Percent Auto 7.9 % (3-14); Neutrophils Absolute Auto 2400 /uL (1500-7000); Neutrophils Percent Auto 41.1 % (50-75); Platelet Count 234 X10^3/uL (150-400); Red Blood Cell Count 3.55 X10^6/uL (4.0-5.2); Red Cell Distribution Width 14.9 % (11.6-14.8); White Blood Cell Count 5.9 X10^3/uL (4.5-11.0)
[2021-07-13 19:03] LABS: Alanine Aminotransferase 32 IU/L (<35); Albumin 4.5 g/dL (3.5-5.0); Albumin Globulin Ratio 1.3 (1.0-2.8); Alkaline Phosphatase 68 U/L (38-126); Aspartate Aminotransferase 47 IU/L (14-36); BUN Creatinine Ratio 21.5 (6-22); Bilirubin Total 0.3 mg/dL (0.2-1.3); Blood Urea Nitrogen 17 mg/dL (7-17); Calcium 9.6 mg/dL (8.4-10.2); Carbon Dioxide 26 mmol/L (22-32); Chloride 102 mmol/L (98-107); Estimated Glomerular Filt Rate > 60.0 mL/min (>60); Globulin 3.6 g/dL (1.7-4.1); Glucose 110 mg/dL (80-110); HEMOLYSIS 20 (0-50); Potassium 3.6 mmol/L (3.4-5.1); Sodium 138 mmol/L (137-145); Total Protein 8.1 g/dL (6.3-8.2)
[2021-07-13] MEDS: TET,DIPH,PERTUSS(ACELL),VAC/PF 0.5 ML SYRINGE IM (19:33)
--- NOTE | 2021-07-13 20:09 | PC.NURSE ---
Patient expresses interest in leaving the ED. This [employer] spoke with patient and was able to offer relief to patient who stated it would be best if she stayed.
[2021-07-13] MEDS: LIDOCAINE 1% W/EPI 1 ML SUBCUT (20:40)
[2021-07-13 21:03] VITALS: BP 118/84; PULSE 95; RESP 16; O2SAT 95
--- NOTE | 2021-07-13 21:10 | PC.NURSE ---
Pt stood and walked with walker to kaye independently, steady gate, well tolerated.
== END 2021-07-13 21:20 | disposition home or self-care (01) ==
PROVIDERS: Emergency Provider Emergency Medicine; PCP Student in an Organized Health Care Education/Training Program
DX: S01.01XA Laceration without foreign body of scalp, initial encounter (principal); Z87.891 Personal history of nicotine dependence; W05.0XXA Fall from non-moving wheelchair, initial encounter; Z23 Encounter for immunization
CPT/HCPCS: 12004; 70450; 72125; 80053; 85025; 90471; 96374; 99284; 90715; J1630

== ENCOUNTER 2021-09-27 13:28 | Observation (INO) | payer MEDICARE, SELFPAY ==
[2021-09-27] VITALS (13 sets, daily range): BP systolic 102–139; BP diastolic 50–64; PULSE 90–128; RESP 16–28; TEMP 36.3–37.3; O2SAT 92–99; BMI 21.4
--- NOTE | 2021-09-27 14:06 | DI.CT.S_ITS ---
PROCEDURE: CT PEL WO CON INDICATIONS: fall, pelvis pain TECHNIQUE: After the administration of oral contrast, 5 mm thick sections acquired from the iliac crests to the symphysis. 5 mm coronal and sagittal reformats were then performed. For radiation dose reduction, the following was used: automated exposure control, adjustment of mA and/or kV according to patient size. COMPARISON: [facility], CT, CT PEL WO CON, 12/13/2017, 13:39. FINDINGS: Image quality: Excellent. Peritoneum and bowel: Bowel loops demonstrate normal wall thickness and caliber. No free fluid or air. Multiple diverticula arise from the sigmoid colon without evidence of diverticulitis. The large fecal bolus noted in the rectum. Surgical clips noted along the right pelvic sidewall Genitourinary: Bladder wall thickness is normal. Hysterectomy. Nodes and vessels: No iliac, pelvic, or inguinal adenopathy by size criteria. Iliac vessels demonstrate normal size. Bones: There is an old partially healed fracture through the 4th sacral ileum element which is nevertheless new from the prior exam in 2018. No evidence of acute fracture. Degenerative changes noted in the lower lumbar spine Miscellaneous: No inguinal hernias. Left lower quadrant herniorrhaphy in place IMPRESSION: 1. Old healed fracture through the 4th sacral element is nevertheless new from 2018. 2. Large fecal bolus in the rectum. 3. Additional chronic degenerative changes detailed above of, stable from prior Approved by: Andre Trinh M.D. on 09/27/2021 at 14:06
--- NOTE | 2021-09-27 14:06 | DI.RAD.S_ITS ---
PROCEDURE: XR CHEST 1V INDICATIONS: confusion TECHNIQUE: One view of the chest was acquired. COMPARISON: [facility], CR, XR CHEST 1V, 10/03/2019, 20:02. FINDINGS: Surgical changes and devices: None. Lungs and pleura: Lungs are clear. No pleural effusions or pneumothorax. Mediastinum: Mediastinal contours appear normal. Heart size is normal. Bones and chest wall: No suspicious bony lesions. Overlying soft tissues appear unremarkable. IMPRESSION: No acute cardiopulmonary findings Approved by: Andre Trinh M.D. on 09/27/2021 at 14:22
--- NOTE | 2021-09-27 14:09 | ED_ITS ---
HPI - Abdominal Pain <Tomas Hamilton PA-C - Last Filed: 09/27/21 16:33> General Chief Complaint: Weakness Stated Complaint: FELL, LEFT KNEE/BACK/STOMACH PAIN Time Seen by Provider: 09/27/21 13:54 History of Present Illness HPI narrative: Patient is an 80-year-old female presents to the ED complaining of pain in the lower pelvis. She fell approximately 1 week ago witnessed by her that he found her on the floor in the hallway. Patient does not recall the incident or the fall although she does have dementia. Family at the bedside is son of which she states that she has had increased confusion more than normal. In speaking with the patient her only complaint is pain in her groin area. She is unable to recall the incident of the fall. She does utilize a cane and a walker although she was not using at home. No reported loss of consciousness and no other pain or discomfort reported other than pain in the groin. No reported fever cough chills shortness of breath nausea vomiting diarrhea. Related Data Previous Rx's Medication Instructions Recorded alendronate 70 mg tablet 70 mg PO QWEEK #12 tab 02/20/20 atenolol 25 mg tablet See Rx Instructions .ROUTE 01/15/21 .COMPLEX #90 tab Allergies Allergy/AdvReac Type Severity Reaction Status Date / Time amlodipine [AMLODIPINE] Allergy Mild Verified 07/23/21 13:07 lisinopril [LISINOPRIL] Allergy Mild Verified 07/23/21 13:07 metoclopramide Allergy Mild Verified 07/23/21 13:07 [METOCLOPRAMIDE] Review of Systems <Tomas Hamilton PA-C - Last Filed: 09/27/21 16:33> Review of Systems ROS Unobtainable: All systems reviewed & are unremarkable except as noted in HPI and below Constitutional Constitutional: Denies chills, Denies fatigue, Denies fever(s), Denies frequent falls, Denies lethargy and Denies weakness Eyes Eyes: Denies change in vision, Denies eye discharge, Denies irritation and Denies loss of vision ENT Ears, Nose, Mouth, and Throat: Denies change in voice, Denies dizziness, Denies neck pain, Denies sore throat and Denies throat swelling Cardiovascular Cardiovascular: Denies chest pain, Denies irregular heart rhythm, Denies lightheadedness, Denies palpitations, Denies dyspnea, Denies dyspnea on exertion and Denies orthopnea Respiratory Respiratory: Denies cough, Denies dyspnea, Denies dyspnea on exertion and Denies wheezing Gastrointestinal Gastrointestinal: Denies abdominal pain, Denies change in bowel habits, Denies diarrhea, Denies nausea and Denies vomiting Genitourinary Genitourinary: Denies hematuria, Denies flank pain, Denies urinary incontinence and Denies urinary urgency Musculoskeletal Musculoskeletal: Denies back pain, Reports arthralgias, Denies muscle weakness, Denies neck pain, Denies numbness and Denies tingling Integumentary/Breasts Skin/Breast: Denies pruritus, Denies erythema, Denies rash and Denies wounds Neurologic Neurologic: Denies behavioral changes, Denies confusion, Denies dizziness, Denies frequent falls, Denies loss of vision, Denies numbness, Denies tingling and Denies weakness Psychiatric Psychiatric: Denies anxiety, Denies behavioral changes, Denies confusion, Denies depression, Denies homicidal ideation and Denies suicidal ideation Endocrine Endocrine: Denies fatigue, Denies flushing and Denies palpitations Hematologic/Lymphatic Hematologic/Lymphatic: Denies easy bruising Allergic/Immunologic Allergic/Immunologic: Denies urticaria, Denies throat swelling and Denies wheezing Patient History <Tomas Hamilton PA-C - Last Filed: 09/27/21 16:33> Medical History Arthritis (~2013) Cholelithiasis (~06/2017) Colon polyps (~2006) Diarrhea Fatty liver (~01/2014) Fibroids Foot fracture, left GERD (gastroesophageal reflux disease) (~01/2014) Hypertension Surgical History History of back surgery History of tonsillectomy and adenoidectomy History of total abdominal hysterectomy and bilateral salpingo-oophorectomy Hx of hernia repair Hx of surgical procedure Family History Father Cancer Mother Hypertension Social History Smoking Status: Former smoker Smoking Status: Former smoker alcohol intake frequency: 0-2 drinks per day Substance Use Type: does not use Exam <Tomas Hamilton PA-C - Last Filed: 09/27/21 16:33> Initial Vital Signs Initial Vital Signs: Vital Signs Temperature 97.3 F L 09/27/21 13:49 Pulse Rate 90 09/27/21 13:49 Respiratory Rate 18 09/27/21 13:49 Blood Pressure 139/64 09/27/21 13:49 Pulse Oximetry 97 09/27/21 13:49 Const General: cooperative, healthy appearing and comfortable Nutritional Appearance: average body habitus Orientation: Orientation [facility] Head: normal to inspection Ears: hearing grossly normal bilaterally and external ears normal Nose: external nose normal and nares normal Face and sinus: normal facial exam and sinuses nontender Throat: posterior oropharynx normal Resp Effort & Inspection: normal respiratory effort and able to speak in complete sentences Auscultation: clear to auscultation bilaterally Percussion: percussion normal Cardio Palpation: normal PMI Rate: regular rate Rhythm: regular rhythm Heart Sounds: S1 normal and S2 normal GI Inspection: normal to inspection Palpation: soft and no hepatosplenomegaly Percussion: normal to percussion Auscultation: normal bowel sounds Extrem General: normal to inspection, full ROM and normal exam except as noted Other: Pelvis elicited some tenderness with palpation. <Maggy Gunderson DO - Last Filed: 09/28/21 19:13> Initial Vital Signs Initial Vital Signs: Vital Signs Temperature 97.3 F L 09/27/21 13:49 Pulse Rate 90 09/27/21 13:49 Respiratory Rate 18 09/27/21 13:49 Blood Pressure 139/64 09/27/21 13:49 Pulse Oximetry 97 09/27/21 13:49 Course <Tomas Hamilton PA-C - Last Filed: 09/27/21 16:33> Orders Ordered: Acetaminophen (Acetaminophen 325 Mg Tablet) 650 mg PO Q6HR PRN PRN Reason: pain/fever Bisacodyl (Bisacodyl 10 Mg Supp) 10 mg MO DAILY PRN PRN Reason: Constipation Last Admin: 09/28/21 16:00 Dose: 10 mg Documented by: GLENDY Heparin Sodium (Porcine) (Heparin 5,000 Unit/Ml Vial) 5,000 unit SUBCUT BID ANTWON Last Admin: 09/28/21 09:57 Dose: 5,000 unit Documented by: Admin: 09/27/21 20:12 Dose: 5,000 unit Documented by: AISSATOU Sodium Chloride (Normal Saline 0.9%) 1,000 mls @ 75 mls/hr IV CONT [facility] Last Infusion: 09/27/21 20:45 Dose: 0 mls/hr Documented by: Admin: 09/27/21 20:07 Dose: 50 mls/hr Documented by: AISSATOU Ceftriaxone Sodium 1,000 mg/ (Sodium Chloride) 100 mls @ 200 mls/hr IV Q24H [facility] Last Admin: 09/28/21 09:54 Dose: 200 mls/hr Documented by: GLENDY Metoprolol Succinate (Metoprolol Er 25 Mg Tablet) 25 mg PO BID [facility] Last Admin: 09/28/21 14:30 Dose: 25 mg Documented by: GLENDY Multivitamins (Multivitamin 1 Tablet) 1 tab PO DAILY [facility] Last Admin: 09/28/21 10:00 Dose: 1 tab Documented by: GLENDY Ondansetron HCl (Ondansetron 4 Mg/2 Ml Inj) 4 mg IV Q8HR PRN PRN Reason: Nausea And Vomiting Polyethylene Glycol (Polyethylene Glycol 3350 17 Gm Powd.Pack) 17 gm PO DAILY [facility] Last Admin: 09/28/21 09:57 Dose: 17 gm Documented by: GLENDY Discontinued Medications Atenolol (Atenolol 25 Mg Tablet) 25 mg PO DAILY [facility] Sodium Chloride (Normal Saline 0.9%) 1,000 mls @ 1,000 mls/hr IV BOLUS ONE Stop: 09/27/21 16:36 Last Infusion: 09/27/21 17:43 Dose: 0 mls/hr Documented by: Admin: 09/27/21 15:58 Dose: 1,000 mls/hr Documented by: OLIVER Sodium Chloride (Normal Saline 0.9%) 1,000 mls @ 1,000 mls/hr IV BOLUS ONE Stop: 09/27/21 17:14 Last Admin: 09/27/21 18:41 Dose: Not Given Documented by: MUSHTAQ Consultations Consultation #1: Spoke with the hospitalist regarding admission he was agreeable patient will be admitted to the floor. Vital Signs Vital signs: Vital Signs - 8 hr 09/27/21 13:49 09/27/21 14:04 09/27/21 14:30 Temperature 97.3 F L Pulse Rate 90 114 H Respiratory Rate 18 Blood Pressure 139/64 128/60 Pulse Oximetry 97 96 09/27/21 15:00 09/27/21 15:30 09/27/21 16:00 Temperature Pulse Rate 113 H 111 H 113 H Respiratory Rate Blood Pressure Pulse Oximetry 93 93 93 <Maggy Gunderson, - Last Filed: 09/28/21 19:13> Orders Ordered: Acetaminophen (Acetaminophen 325 Mg Tablet) 650 mg PO Q6HR PRN PRN Reason: pain/fever Bisacodyl (Bisacodyl 10 Mg Supp) 10 mg MO DAILY PRN PRN Reason: Constipation Last Admin: 09/28/21 16:00 Dose: 10 mg Documented by: GLENDY Heparin Sodium (Porcine) (Heparin 5,000 Unit/Ml Vial) 5,000 unit SUBCUT BID [facility] Last Admin: 09/28/21 09:57 Dose: 5,000 unit Documented by: Admin: 09/27/21 20:12 Dose: 5,000 unit Documented by: AISSATOU Sodium Chloride (Normal Saline 0.9%) 1,000 mls @ 75 mls/hr IV CONT [facility] Last Infusion: 09/27/21 20:45 Dose: 0 mls/hr Documented by: Admin: 09/27/21 20:07 Dose: 50 mls/hr Documented by: AISSATOU Ceftriaxone Sodium 1,000 mg/ (Sodium Chloride) 100 mls @ 200 mls/hr IV Q24H [facility] Last Admin: 09/28/21 09:54 Dose: 200 mls/hr Documented by: GLENDY Metoprolol Succinate (Metoprolol Er 25 Mg Tablet) 25 mg PO BID [facility] Last Admin: 09/28/21 14:30 Dose: 25 mg Documented by: GLENDY Multivitamins (Multivitamin 1 Tablet) 1 tab PO DAILY [facility] Last Admin: 09/28/21 10:00 Dose: 1 tab Documented by: GLENDY Ondansetron HCl (Ondansetron 4 Mg/2 Ml Inj) 4 mg IV Q8HR PRN PRN Reason: Nausea And Vomiting Polyethylene Glycol (Polyethylene Glycol 3350 17 Gm Powd.Pack) 17 gm PO DAILY [facility] Last Admin: 09/28/21 09:57 Dose: 17 gm Documented by: GLENDY Discontinued Medications Atenolol (Atenolol 25 Mg Tablet) 25 mg PO DAILY [facility] Sodium Chloride (Normal Saline 0.9%) 1,000 mls @ 1,000 mls/hr IV BOLUS ONE Stop: 09/27/21 16:36 Last Infusion: 09/27/21 17:43 Dose: 0 mls/hr Documented by: Admin: 09/27/21 15:58 Dose: 1,000 mls/hr Documented by: OLIVER Sodium Chloride (Normal Saline 0.9%) 1,000 mls @ 1,000 mls/hr IV BOLUS ONE Stop: 09/27/21 17:14 Last Admin: 09/27/21 18:41 Dose: Not Given Documented by: BTMARIA R Vital Signs Vital signs: Vital Signs - 8 hr 09/27/21 13:49 09/27/21 14:04 09/27/21 14:30 Temperature 97.3 F L Pulse Rate 90 114 H Respiratory Rate 18 Blood Pressure 139/64 128/60 Pulse Oximetry 97 96 09/27/21 15:00 09/27/21 15:30 09/27/21 16:00 Temperature Pulse Rate 113 H 111 H 113 H Respiratory Rate Blood Pressure Pulse Oximetry 93 93 93 MDM - Abdominal Pain <Tomas Hamilton PA-C - Last Filed: 09/27/21 16:33> Differential Diagnosis Differential diagnosis: Likely other (Acute kidney injury) Lab Data Result diagrams: 09/28/21 06:20 09/28/21 06:20 Labs: Lab Results 09/27/21 09/27/21 09/27/21 Range/Units 11:50 15:09 15:09 WBC 5.9 (4.5-11.0) X10^3/uL RBC 2.82 L (4.0-5.2) X10^6/uL Hgb 8.5 L (12.0-16.0) g/dL Hct 26.0 L (36-46) % MCV 92.3 (80-100) fL MCH 30.2 (26-34) PG MCHC 32.7 (30-36) % RDW 17.5 H (11.6-14.8) % Plt Count 193 (150-400) X10^3/uL Neut % (Auto) Not Reportable Lymph % (Auto) Not Reportable Hudson % (Auto) Not Reportable Eos % (Auto) Not Reportable Baso % (Auto) Not Reportable Lymph # (Auto) Not Reportable Hudson # (Auto) Not Reportable Baso # (Auto) Not Reportable Total Counted 100 Seg Neutrophils % 32.0 L (38-70) % Band Neutrophils % 21.0 H (3-7) % Lymphocytes % (Manual) 27.0 (25-45) % Monocytes % (Manual) 5.0 (2-11) % Eosinophils % (Manual) 2.0 (2-4) % Metamyelocytes % 3.0 H (-0) % Myelocytes % 10.0 H (-0) % Neutrophils # (Manual) 3127 (7533-5051) /uL Nucleated RBCs 3 H ( - 0) #/Diff Plt Morphology Comment Note RBC Morphology See below Poikilocytosis 1+ H Schistocytes 2+ H Sodium 144 (137-145) mmol/L Potassium 4.0 (3.4-5.1) mmol/L Chloride 110 H (98-107) mmol/L Carbon Dioxide 21 L (22-32) mmol/L BUN 73 H (7-17) mg/dL Creatinine 2.92 H (0.52-1.04) mg/dL Estimated GFR 15.5 L (>60) mL/min BUN/Creatinine Ratio 25.0 H (6-22) Glucose 167 H (80-110) mg/dL Calcium 9.2 (8.4-10.2) mg/dL Iron (37-170) ug/dL TIBC (265-497) ug/dL % Saturation (15-50) % Transferrin (206-381) mg/dL Ferritin 950 H (11-264) ng/mL Total Bilirubin 0.5 (0.2-1.3) mg/dL AST 64 H (14-36) IU/L ALT 38 H (<35) IU/L Alkaline Phosphatase 62 (38-126) U/L Total Creatine Kinase 498 H (30-135) U/L CK-MB (CK-2) 9.02 H (<2.37) ng/mL CK-MB (CK-2) Rel Index 1.8 (1.5-5.0) % Troponin I < 0.012 (0.01-0.034) ng/mL NT-Pro-B Natriuret Pep 1190 H (<450) pg/mL Total Protein 8.0 (6.3-8.2) g/dL Albumin 3.7 (3.5-5.0) g/dL Globulin 4.3 H (1.7-4.1) g/dL Albumin/Globulin Ratio 0.9 L (1.0-2.8) 09/27/21 Range/Units 15:09 WBC (4.5-11.0) X10^3/uL RBC (4.0-5.2) X10^6/uL Hgb (12.0-16.0) g/dL Hct (36-46) % MCV (80-100) fL MCH (26-34) PG MCHC (30-36) % RDW (11.6-14.8) % Plt Count (150-400) X10^3/uL Neut % (Auto) Lymph % (Auto) Hudson % (Auto) Eos % (Auto) Baso % (Auto) Lymph # (Auto) Hudson # (Auto) Baso # (Auto) Total Counted Seg Neutrophils % (38-70) % Band Neutrophils % (3-7) % Lymphocytes % (Manual) (25-45) % Monocytes % (Manual) (2-11) % Eosinophils % (Manual) (2-4) % Metamyelocytes % (-0) % Myelocytes % (-0) % Neutrophils # (Manual) (3980-8809) /uL Nucleated RBCs ( - 0) #/Diff Plt Morphology Comment RBC Morphology Poikilocytosis Schistocytes Sodium (137-145) mmol/L Potassium (3.4-5.1) mmol/L Chloride (98-107) mmol/L Carbon Dioxide (22-32) mmol/L BUN (7-17) mg/dL Creatinine (0.52-1.04) mg/dL Estimated GFR (>60) mL/min BUN/Creatinine Ratio (6-22) Glucose (80-110) mg/dL Calcium (8.4-10.2) mg/dL Iron 36 L (37-170) ug/dL TIBC 191 L (265-497) ug/dL % Saturation 19 (15-50) % Transferrin 137 L (206-381) mg/dL Ferritin (11-264) ng/mL Total Bilirubin (0.2-1.3) mg/dL AST (14-36) IU/L ALT (<35) IU/L Alkaline Phosphatase (38-126) U/L Total Creatine Kinase (30-135) U/L CK-MB (CK-2) (<2.37) ng/mL CK-MB (CK-2) Rel Index (1.5-5.0) % Troponin I (0.01-0.034) ng/mL NT-Pro-B Natriuret Pep (<450) pg/mL Total Protein (6.3-8.2) g/dL Albumin (3.5-5.0) g/dL Globulin (1.7-4.1) g/dL Albumin/Globulin Ratio (1.0-2.8) Imaging Data CT scan - abdomen/pelvis: Radiologist's Impression: Patient: Hitchcock MR#: [id number] : 1940 Acct:[id number] Age/Sex: 80 / F Date of Service: 09/27/21 Loc: ED Accession Number: [id number] ?? Procedure: CT pelvis wo con Ordering Provider: Tomas Hamilton P.A-C PROCEDURE:? CT PEL WO CON ? INDICATIONS:? fall, pelvis pain ? TECHNIQUE:? After the administration of oral contrast, 5 mm thick sections acquired from the iliac crests to the symphysis.? 5 mm coronal and sagittal reformats were then performed.? For radiation dose reduction, the following was used:? automated exposure control, adjustment of mA and/or kV according to patient size.? ? COMPARISON:? [facility], CT, CT PEL WO CON, 12/13/2017, 13:39. ? FINDINGS:? Image quality:? Excellent.? ? Peritoneum and bowel:? Bowel loops demonstrate normal wall thickness and caliber.? No free fluid or air.? Multiple diverticula arise from the sigmoid colon without evidence of diverticulitis. ? The large fecal bolus noted in the rectum.? Surgical clips not ed along the right pelvic sidewall ? Genitourinary:? Bladder wall thickness is normal.? Hysterectomy. ? Nodes and vessels:? No iliac, pelvic, or inguinal adenopathy by size criteria.? Iliac vessels demonstrate normal size.? ? Bones:? There is an old partially healed fracture through the 4th sacral ileum element which is nevertheless new from the prior exam in 2018.? No evidence of acute fracture.? Degenerative changes noted in the lower lumbar spine ? Miscellaneous:? No inguinal hernias.? Left lower quadrant herniorrhaphy in place ? IMPRESSION:? ? 1. Old healed fracture through the 4th sacral element is nevertheless new from 2018. ? 2. Large fecal bolus in the rectum. ? 3. Additional chronic degenerative changes detailed above of, stable from prior ? ? Approved by: Andre Trinh M.D. on 09/27/2021 at 14:06? Chest x-ray: Radiologist's Impression: [address] [address] XRay Report Signed Patient: Hitchcock MR#: [id number] : 1940 Acct:[id number] Age/Sex: 80 / F Date of Service: 09/27/21 Loc: ED Accession Number: [id number] ?? Procedure: XR chest 1V Ordering Provider: Tomas Hamilton P.A-C PROCEDURE:? XR CHEST 1V ? INDICATIONS:? confusion ? TECHNIQUE:? One view of the chest was acquired.? ? COMPARISON:? [facility], CR, XR CHEST 1V, 10/03/2019, 20:02. ? FINDINGS:? ? Surgical changes and devices:? None.? ? Lungs and pleura:? Lungs are clear.? No pleural effusions or pneumothorax.? ? Mediastinum:? Mediastinal contours appear normal.? Heart size is normal.? ? Bones and chest wall:? No suspicious bony lesions.? Overlying soft tissues appear unremarkable.? ? IMPRESSION:? No acute cardiopulmonary findings ? ? ? Approved by: Andre Trinh M.D. on 09/27/2021 at 14:22? MDM Narrative Medical decision making narrative: Patient was evaluated today for complaints of pelvic pain. CT of pelvis does show increased stool burden however in searching for signs of infection secondary to increased confusion it was discovered that she had acute kidney injury with elevated creatinine and BUN. I think this is is likely result of dehydration and I think patient would respond from some fluids. However she does have evidence of congestive heart failure. There is no evidence of any pulmonary edema nor is there any complaints of shortness of breath by the patient. Patient is able to lie flat without any difficulty and there is no evidence of any tachypnea. Breath sounds appear clear heart rate is elevated with tachycardia in the 115. Patient would benefit from hospital admission for IV fluids rehydration correct the increased stool burden in the rectal vault and monitor cardiac function. <Maggy Gunderson, DO - Last Filed: 09/28/21 19:13> Lab Data Labs: Lab Results 09/27/21 09/27/21 09/27/21 Range/Units 11:50 15:09 15:09 WBC 5.9 (4.5-11.0) X10^3/uL RBC 2.82 L (4.0-5.2) X10^6/uL Hgb 8.5 L (12.0-16.0) g/dL Hct 26.0 L (36-46) % MCV 92.3 (80-100) fL MCH 30.2 (26-34) PG MCHC 32.7 (30-36) % RDW 17.5 H (11.6-14.8) % Plt Count 193 (150-400) X10^3/uL Neut % (Auto) Not Reportable Lymph % (Auto) Not Reportable Hudson % (Auto) Not Reportable Eos % (Auto) Not Reportable Baso % (Auto) Not Reportable Lymph # (Auto) Not Reportable Hudson # (Auto) Not Reportable Baso # (Auto) Not Reportable Total Counted 100 Seg Neutrophils % 32.0 L (38-70) % Band Neutrophils % 21.0 H (3-7) % Lymphocytes % (Manual) 27.0 (25-45) % Monocytes % (Manual) 5.0 (2-11) % Eosinophils % (Manual) 2.0 (2-4) % Metamyelocytes % 3.0 H (-0) % Myelocytes % 10.0 H (-0) % Neutrophils # (Manual) 3127 (9724-9776) /uL Nucleated RBCs 3 H ( - 0) #/Diff Plt Morphology Comment Note RBC Morphology See below Poikilocytosis 1+ H Schistocytes 2+ H Sodium 144 (137-145) mmol/L Potassium 4.0 (3.4-5.1) mmol/L Chloride 110 H (98-107) mmol/L Carbon Dioxide 21 L (22-32) mmol/L BUN 73 H (7-17) mg/dL Creatinine 2.92 H (0.52-1.04) mg/dL Estimated GFR 15.5 L (>60) mL/min BUN/Creatinine Ratio 25.0 H (6-22) Glucose 167 H (80-110) mg/dL Calcium 9.2 (8.4-10.2) mg/dL Iron (37-170) ug/dL TIBC (265-497) ug/dL % Saturation (15-50) % Transferrin (206-381) mg/dL Ferritin 950 H (11-264) ng/mL Total Bilirubin 0.5 (0.2-1.3) mg/dL AST 64 H (14-36) IU/L ALT 38 H (<35) IU/L Alkaline Phosphatase 62 (38-126) U/L Total Creatine Kinase 498 H (30-135) U/L CK-MB (CK-2) 9.02 H (<2.37) ng/mL CK-MB (CK-2) Rel Index 1.8 (1.5-5.0) % Troponin I < 0.012 (0.01-0.034) ng/mL NT-Pro-B Natriuret Pep 1190 H (<450) pg/mL Total Protein 8.0 (6.3-8.2) g/dL Albumin 3.7 (3.5-5.0) g/dL Globulin 4.3 H (1.7-4.1) g/dL Albumin/Globulin Ratio 0.9 L (1.0-2.8) 09/27/21 Range/Units 15:09 WBC (4.5-11.0) X10^3/uL RBC (4.0-5.2) X10^6/uL Hgb (12.0-16.0) g/dL Hct (36-46) % MCV (80-100) fL MCH (26-34) PG MCHC (30-36) % RDW (11.6-14.8) % Plt Count (150-400) X10^3/uL Neut % (Auto) Lymph % (Auto) Hudson % (Auto) Eos % (Auto) Baso % (Auto) Lymph # (Auto) Hudson # (Auto) Baso # (Auto) Total Counted Seg Neutrophils % (38-70) % Band Neutrophils % (3-7) % Lymphocytes % (Manual) (25-45) % Monocytes % (Manual) (2-11) % Eosinophils % (Manual) (2-4) % Metamyelocytes % (-0) % Myelocytes % (-0) % Neutrophils # (Manual) (6842-6348) /uL Nucleated RBCs ( - 0) #/Diff Plt Morphology Comment RBC Morphology Poikilocytosis Schistocytes Sodium (137-145) mmol/L Potassium (3.4-5.1) mmol/L Chloride (98-107) mmol/L Carbon Dioxide (22-32) mmol/L BUN (7-17) mg/dL Creatinine (0.52-1.04) mg/dL Estimated GFR (>60) mL/min BUN/Creatinine Ratio (6-22) Glucose (80-110) mg/dL Calcium (8.4-10.2) mg/dL Iron 36 L (37-170) ug/dL TIBC 191 L (265-497) ug/dL % Saturation 19 (15-50) % Transferrin 137 L (206-381) mg/dL Ferritin (11-264) ng/mL Total Bilirubin (0.2-1.3) mg/dL AST (14-36) IU/L ALT (<35) IU/L Alkaline Phosphatase (38-126) U/L Total Creatine Kinase (30-135) U/L CK-MB (CK-2) (<2.37) ng/mL CK-MB (CK-2) Rel Index (1.5-5.0) % Troponin I (0.01-0.034) ng/mL NT-Pro-B Natriuret Pep (<450) pg/mL Total Protein (6.3-8.2) g/dL Albumin (3.5-5.0) g/dL Globulin (1.7-4.1) g/dL Albumin/Globulin Ratio (1.0-2.8) Discharge Plan Departure Patient Disposition: Admitted As Inpatient Clinical Impression: Dehydration, Acute kidney injury, Congestive heart failure Admit Date/Time: 09/27/21 16:25 Admit Provider: Nolberto Orantes <Maggy Gunderson DO - Last Filed: 09/28/21 19:13> Cosign ED Attending Cosignature Attestation: I was immediately available in the department for consultation. Documentation has been reviewed.
[2021-09-27 15:33] LABS: Alanine Aminotransferase 38 IU/L (<35); Albumin 3.7 g/dL (3.5-5.0); Albumin Globulin Ratio 0.9 (1.0-2.8); Alkaline Phosphatase 62 U/L (38-126); Aspartate Aminotransferase 64 IU/L (14-36); Bilirubin Total 0.5 mg/dL (0.2-1.3); Blood Urea Nitrogen 73 mg/dL (7-17); Calcium 9.2 mg/dL (8.4-10.2); Carbon Dioxide 21 mmol/L (22-32); Chloride 110 mmol/L (98-107); Creatine Kinase 498 U/L (30-135); Estimated Glomerular Filt Rate 15.5 mL/min (>60); Globulin 4.3 g/dL (1.7-4.1); Glucose 167 mg/dL (80-110); HEMOLYSIS < 15 (0-50); Sodium 144 mmol/L (137-145)
[2021-09-27 15:45] LABS: NT-proBNP (BNP-Adult 18+) 1190 pg/mL (<450); Troponin I < 0.012 ng/mL (0.01-0.034)
[2021-09-27 15:48] LABS: CKMB % Relative Index 1.8 % (1.5-5.0); Creatine Kinase MB 9.02 ng/mL (<2.37)
[2021-09-27 15:52] LABS: Add Manual Diff / Slide Review YES; Hemoglobin 8.5 g/dL (12.0-16.0); Mean Corpuscular HGB Conc 32.7 % (30-36); Mean Corpuscular Hemoglobin 30.2 PG (26-34); Mean Corpuscular Volume 92.3 fL (80-100); Platelet Count 193 X10^3/uL (150-400); Red Blood Cell Count 2.82 X10^6/uL (4.0-5.2); Red Cell Distribution Width 17.5 % (11.6-14.8); White Blood Cell Count 5.9 X10^3/uL (4.5-11.0)
[2021-09-27 15:57] LABS: Neutrophils Absolute Manual 3127 /uL (3000-5900); Nucleated Red Blood Cells 3 #/Diff; Poikilocytosis 1+; Schistocytes 2+; Total Cells Counted 100
[2021-09-27] MEDS: SODIUM CHLORIDE 0.9% 1,000 ML 1000 ML IV (15:58)
[2021-09-27 15:59] LABS: Platelet Morphology Comment NOTE
--- NOTE | 2021-09-27 16:14 | DI.US.S_ITS ---
PROCEDURE: US RENAL COMPLETE INDICATIONS: SANDY TECHNIQUE: Real-time scanning was performed of the kidneys and bladder, with image documentation. COMPARISON: None. FINDINGS: Kidneys: Kidneys are normal in size. Right kidney measures 8.7 cm long; left kidney measures 10.0 cm long. Right renal cortical thickness is 1.1 cm; left renal cortical thickness is 1.0 cm. Renal cortical echotexture is normal. No hydronephrosis or nephrolithiasis. No suspicious solid mass lesions. Bladder: Bladder is nondistended Miscellaneous: No free pelvic fluid. IMPRESSION: Unremarkable ultrasound the kidneys. No shadowing calculi or hydronephrosis Approved by: Andre Trinh M.D. on 09/27/2021 at 16:52
[2021-09-27 16:48] LABS: Appearance Urine UA CLOUDY; Bilirubin Urine UA NEGATIVE (NEGATIVE); Color Urine UA YELLOW; Glucose Urine UA NEGATIVE (Negative); Ketones Urine UA NEGATIVE (NEGATIVE); Leukocyte Esterase Urine UA 1+ (NEGATIVE); Nitrite Urine UA NEGATIVE (Negative); Occult Blood Urine UA 2+ (Negative); Protein Urine UA 1+ (Negative); Specific Gravity Urine UA 1.015 (1.000-1.035); Urobilinogen Urine UA 0.2 E.U./dL (0.2)
[2021-09-27 17:08] LABS: Bacteria Urine Many (>30); Culture Indicated Urine Specimen Cultured; RBC Urine None Seen (0-5/HPF); Squamous Epithelial Cell Urine 0-1 /HPF (0-5/HPF); WBC Urine 30-100/HPF (0-5/HPF)
--- NOTE | 2021-09-27 17:18 | PM.HP.1 ---
History of Present Illness History of Present Illness Date Patient Seen: 09/27/21 Time Patient Seen: 16:00 Chief complaint: FELL, LEFT KNEE/BACK/STOMACH PAIN Narrative: Patient is an 80-year-old female lives at home with brought to the emergency department due to weakness and complaints of groin and leg pain. Patient had unwitnessed fall at home about 1 week ago. states that since then she has gotten progressively weaker only able to move short distances and using wheelchair or walker. Patient herself does not recall the fall. Patient/ denies LOC, melena, vomiting, constipation or diarrhea. No cough, chest pain, shortness a breath, fevers or chills. She is chronically incontinent of urine. On ED evaluation, patient was noted to be in acute renal failure and more anemic. Pelvic CT did not show fracture but did show large stool in rectum. Chest x-ray was normal. She was mildly tachycardic. Patient does take Aleve at night. is concerned she has dementia. States she has very poor short-term/near term memory and also becoming more argumentative especially later in the day. She does have a scotch drink each evening which ports for her. states that previously she had 2-3 drinks a night but cut down in the past year. Also states that she has not been eating well and estimates lost 15 lb in the last year. Patient History Medical History Arthritis (~2013) Cholelithiasis (~06/2017) Colon polyps (~2006) Diarrhea Fatty liver (~01/2014) Fibroids Foot fracture, left GERD (gastroesophageal reflux disease) (~01/2014) Hypertension Surgical History History of back surgery History of tonsillectomy and adenoidectomy History of total abdominal hysterectomy and bilateral salpingo-oophorectomy Hx of hernia repair Hx of surgical procedure Family & Social History Family History Father Cancer Mother Hypertension Safety & Behavioral: Feels Safe in Current Yes Environment Been Physically Hurt or No Threatened By a Person Tobacco & Substance use: Smoking Status Former smoker alcohol intake frequency 0-2 drinks per day Substance Use Type does not use Meds Home Medications and Allergies Home Medications Medication Instructions Recorded Confirmed Type alendronate 70 mg tablet 70 mg PO QWEEK #12 tab 02/20/20 07/23/21 Rx atenolol 25 mg tablet See Rx Instructions .ROUTE 01/15/21 07/23/21 Rx .COMPLEX #90 tab Allergies Allergy/AdvReac Type Severity Reaction Status Date / Time amlodipine [AMLODIPINE] Allergy Mild Verified 07/23/21 13:07 lisinopril [LISINOPRIL] Allergy Mild Verified 07/23/21 13:07 metoclopramide Allergy Mild Verified 07/23/21 13:07 [METOCLOPRAMIDE] Review of Systems Review of Systems Narrative: Complete 10 point ROS negative other than noted above. Exam Vital Signs (past 8 hours): - 09/27/21 13:49 09/27/21 14:04 09/27/21 14:30 Temperature 97.3 F L Pulse Rate 90 114 H Respiratory Rate 18 Blood Pressure 139/64 128/60 Pulse Oximetry 97 96 09/27/21 15:00 09/27/21 15:30 09/27/21 16:00 Temperature Pulse Rate 113 H 111 H 113 H Respiratory Rate Blood Pressure Pulse Oximetry 93 93 93 Oxygen Delivery Method Room Air Narrative Exam Narrative: General: Alert female in no distress unless moved. HEENT: Nontraumatic, pupils equal, EOMI, no facial droop Neck: No lymphadenopathy Lungs: Clear to auscultation Heart: Normal S1 and S2, regular rhythm, no murmur appreciated Abdomen: Soft, non tender, no HSM, no groin swelling or bruising Rectal: Copious brown soft stool guaiac negative Extremities: No edema, no bruising or ulcers, has significant pain with moving either leg at the hip Neurological: Oriented to person and place, speech fluent, no focal weakness Objective Labs Result Diagrams: 09/27/21 15:09 09/27/21 15:09 Labs: Laboratory Results - last 24 hr 09/27/21 09/27/21 09/27/21 15:09 15:09 16:40 WBC 5.9 RBC 2.82 L Hgb 8.5 L Hct 26.0 L MCV 92.3 MCH 30.2 MCHC 32.7 RDW 17.5 H Plt Count 193 Neut % (Auto) Not Reportable Lymph % (Auto) Not Reportable [place] % (Auto) Not Reportable Eos % (Auto) Not Reportable Baso % (Auto) Not Reportable Lymph # (Auto) Not Reportable [place] # (Auto) Not Reportable Baso # (Auto) Not Reportable Total Counted 100 Seg Neutrophils % 32.0 L Band Neutrophils % 21.0 H Lymphocytes % (Manual) 27.0 Monocytes % (Manual) 5.0 Eosinophils % (Manual) 2.0 Metamyelocytes % 3.0 H Myelocytes % 10.0 H Neutrophils # (Manual) 3127 Nucleated RBCs 3 H Plt Morphology Comment Note RBC Morphology See below Poikilocytosis 1+ H Schistocytes 2+ H Sodium 144 Potassium 4.0 Chloride 110 H Carbon Dioxide 21 L BUN 73 H Creatinine 2.92 H Estimated GFR 15.5 L BUN/Creatinine Ratio 25.0 H Glucose 167 H Calcium 9.2 Total Bilirubin 0.5 AST 64 H ALT 38 H Alkaline Phosphatase 62 Total Creatine Kinase 498 H CK-MB (CK-2) 9.02 H CK-MB (CK-2) Rel Index 1.8 Troponin I < 0.012 NT-Pro-B Natriuret Pep 1190 H Total Protein 8.0 Albumin 3.7 Globulin 4.3 H Albumin/Globulin Ratio 0.9 L Urine Color Yellow Urine Appearance Cloudy Urine pH 5.0 Ur Specific [place] 1.015 Urine Protein 1+ H Urine Glucose (UA) Negative Urine Ketones Negative Urine Occult Blood 2+ H Urine Nitrate Negative Urine Bilirubin Negative Urine Urobilinogen 0.2 Ur Leukocyte Esterase 1+ H Urine RBC None seen Urine WBC 30-100/hpf H Ur Squamous Epith Cells 0-1 /hpf Urine Bacteria Many (>30) H Ur Culture Indicated? Specimen cultured Assessment & Plan Assessment & Plan narrative: 1. Acute dehydration with SANDY -patient with recent fall and not eating well, noted uremic with BUN 73 and creatinine 2.92, baseline creatinine 0.79 this past June -renal ultrasound no hydronephrosis -received 2 L NS bolus in the ED -continue NS 50 cc/hour gentle hydration -recheck renal labs in a.m. 2. Acute on chronic anemia -hemoglobin 8.5 versus 11.8 back in June -check iron, ferritin, B12 and folate -brown guaiac-negative stool noted on rectal exam -repeat labs in a.m. 3. Constipation -tap water enema 4. Pelvic pain status post ground level fall, likely ligament/muscle strain -no fracture on CT -PT consult -Tylenol as needed 5. Memory impairment -as noted concerned about poor short-term memory and behavioral changes concerning for dementia -OT consult for cognitive evaluation -check TSH, B12 new 6. Alcohol use disorder -history of excessive alcohol use 2-3 mixed drinks (scotch) a day until 1 year ago when decreased to 1 mixed drink a day -increases risk of falls, further cognitive decline - prepares her drink each evening, advised him to start cutting back on amount of alcohol in her drinks 7. Abnormal weight loss - endorses decrease food intake over past year with guestimate 15 lb weight loss -dietitian consult requested 8. Hypertension, chronic -continue atenolol 25 mg daily DVT prophylaxis: SubQ heparin POA: Spouse Code status: DNR, per POA Time Spent With Patient Critical Care time: I spent a total of [] minutes of critical care time on this patient's care today; this time is exclusive of procedural time.
[2021-09-27 17:43] LABS: COVID19 -Nasal RAPID Negative (Negative)
[2021-09-27 17:56] LABS: HEMOLYSIS < 15 (0-50); Iron 36 ug/dL (37-170)
[2021-09-27 18:07] LABS: Percent Iron Saturation 19 % (15-50); Total Iron Binding Capacity 191 ug/dL (265-497); Transferrin 137 mg/dL (206-381)
[2021-09-27 19:18] LABS: Ferritin 950 ng/mL (11-264)
[2021-09-27] MEDS: SODIUM CHLORIDE 0.9% 1,000 ML 50 ML IV (20:07)
[2021-09-27] MEDS: HEPARIN 5,000 UNIT/ML VIAL 5000 UNIT SUBCUT (20:12)
[2021-09-28] VITALS (13 sets, daily range): BP systolic 106–150; BP diastolic 63–77; PULSE 63–113; RESP 16–18; TEMP 36.3–36.8; O2SAT 93–97
[2021-09-28 06:46] LABS: Hemoglobin 8.5 g/dL (12.0-16.0)
[2021-09-28 06:52] LABS: BUN Creatinine Ratio 30.6 (6-22); Blood Urea Nitrogen 63 mg/dL (7-17); Calcium 9.2 mg/dL (8.4-10.2); Carbon Dioxide 19 mmol/L (22-32); Chloride 115 mmol/L (98-107); Creatine Kinase 329 U/L (30-135); Estimated Glomerular Filt Rate 23.1 mL/min (>60); Glucose 118 mg/dL (80-110); HEMOLYSIS < 15 (0-50); Potassium 3.8 mmol/L (3.4-5.1); Sodium 147 mmol/L (137-145)
[2021-09-28 07:23] LABS: TSH w/ Reflex to FT4 1.74 uIU/mL (0.47-4.68)
[2021-09-28 07:42] LABS: Vitamin B12 > 1000 pg/mL (239-931)
[2021-09-28] MEDS: cefTRIAXone 1,000 MG in SODIUM CHLORIDE 0.9% 100 ML 200 ML IV (09:54)
[2021-09-28] MEDS: HEPARIN 5,000 UNIT/ML VIAL 5000 UNIT SUBCUT ×2 (09:57→22:07)
[2021-09-28] MEDS: polyethylene glycoL 3350 17 GM POWD.PACK PO (09:57)
[2021-09-28] MEDS: MULTIVITAMIN 1 TABLET 1 TAB PO (10:00)
--- NOTE | 2021-09-28 10:08 | PT-IP ANOTE ---
Addendum entered and electronically signed by Sofia Patel PT 09/28/21 15:34: Met with pt twice this PM who was clear and adamant both times that she had no interest in getting out of bed. Educated pt that PT was to assess her mobility for safe discharge and refusing PT could be a barrier to discharge. Pt understood and continued to refuse. Original Note: Received PT orders and reviewed the chart. Attempted to meet with pt who stated she was too tired to participate and requested she be allowed to sleep. Nursing confirmed pt would benefit from rest at this time. Will follow up PM.
--- NOTE | 2021-09-28 12:57 | OT.IPNOTE ---
Attempted to see pt for OT services x2 today. Pt refused this AM stating that she just wanted to sleep. Attempted again later and pt was sleeping. Nursing requesting that pt not be awakened. Will hold today and continue to follow.
--- NOTE | 2021-09-28 13:38 | PM.PN.1 ---
Subjective Subjective Date Patient Seen: 09/28/21 Time Patient Seen: 08:00 Interval history: She has no complaints currently. She just wants to sleep. Her is not sure if she is doing better. Exam Vital Signs (past 8 hours): - 09/28/21 09:00 09/28/21 09:14 Temperature 97.4 F L Pulse Rate 113 H Respiratory Rate 16 Blood Pressure 150/63 H Pulse Oximetry 94 97 Oxygen Delivery Method Room Air Oxygen Flow Rate 0 Narrative Exam Narrative: General: no acute distress Lungs:? Clear bilaterally Heart:? regular rate and rhythm, no murmurs Abdomen:? Soft, non tender Objective Labs Result Diagrams: 09/28/21 06:20 09/28/21 06:20 Labs: Laboratory Results - last 24 hr 09/27/21 09/27/21 09/27/21 11:50 15:09 15:09 WBC 5.9 RBC 2.82 L Hgb 8.5 L Hct 26.0 L MCV 92.3 MCH 30.2 MCHC 32.7 RDW 17.5 H Plt Count 193 Neut % (Auto) Not Reportable Lymph % (Auto) Not Reportable [place] % (Auto) Not Reportable Eos % (Auto) Not Reportable Baso % (Auto) Not Reportable Lymph # (Auto) Not Reportable [place] # (Auto) Not Reportable Baso # (Auto) Not Reportable Total Counted 100 Seg Neutrophils % 32.0 L Band Neutrophils % 21.0 H Lymphocytes % (Manual) 27.0 Monocytes % (Manual) 5.0 Eosinophils % (Manual) 2.0 Metamyelocytes % 3.0 H Myelocytes % 10.0 H Neutrophils # (Manual) 3127 Nucleated RBCs 3 H Plt Morphology Comment Note RBC Morphology See below Poikilocytosis 1+ H Schistocytes 2+ H Sodium 144 Potassium 4.0 Chloride 110 H Carbon Dioxide 21 L BUN 73 H Creatinine 2.92 H Estimated GFR 15.5 L BUN/Creatinine Ratio 25.0 H Glucose 167 H Calcium 9.2 Iron TIBC % Saturation Transferrin Ferritin 950 H Total Bilirubin 0.5 AST 64 H ALT 38 H Alkaline Phosphatase 62 Total Creatine Kinase 498 H CK-MB (CK-2) 9.02 H CK-MB (CK-2) Rel Index 1.8 Troponin I < 0.012 NT-Pro-B Natriuret Pep 1190 H Total Protein 8.0 Albumin 3.7 Globulin 4.3 H Albumin/Globulin Ratio 0.9 L Vitamin B12 TSH Urine Color Urine Appearance Urine pH Ur Specific [place] Urine Protein Urine Glucose (UA) Urine Ketones Urine Occult Blood Urine Nitrate Urine Bilirubin Urine Urobilinogen Ur Leukocyte Esterase Urine RBC Urine WBC Ur Squamous Epith Cells Urine Bacteria Ur Culture Indicated? SARS-CoV-2 (PCR) 09/27/21 09/27/21 09/27/21 15:09 16:40 17:20 WBC RBC Hgb Hct MCV MCH MCHC RDW Plt Count Neut % (Auto) Lymph % (Auto) [place] % (Auto) Eos % (Auto) Baso % (Auto) Lymph # (Auto) [place] # (Auto) Baso # (Auto) Total Counted Seg Neutrophils % Band Neutrophils % Lymphocytes % (Manual) Monocytes % (Manual) Eosinophils % (Manual) Metamyelocytes % Myelocytes % Neutrophils # (Manual) Nucleated RBCs Plt Morphology Comment RBC Morphology Poikilocytosis Schistocytes Sodium Potassium Chloride Carbon Dioxide BUN Creatinine Estimated GFR BUN/Creatinine Ratio Glucose Calcium Iron 36 L TIBC 191 L % Saturation 19 Transferrin 137 L Ferritin Total Bilirubin AST ALT Alkaline Phosphatase Total Creatine Kinase CK-MB (CK-2) CK-MB (CK-2) Rel Index Troponin I NT-Pro-B Natriuret Pep Total Protein Albumin Globulin Albumin/Globulin Ratio Vitamin B12 TSH Urine Color Yellow Urine Appearance Cloudy Urine pH 5.0 Ur Specific [place] 1.015 Urine Protein 1+ H Urine Glucose (UA) Negative Urine Ketones Negative Urine Occult Blood 2+ H Urine Nitrate Negative Urine Bilirubin Negative Urine Urobilinogen 0.2 Ur Leukocyte Esterase 1+ H Urine RBC None seen Urine WBC 30-100/hpf H Ur Squamous Epith Cells 0-1 /hpf Urine Bacteria Many (>30) H Ur Culture Indicated? Specimen cultured SARS-CoV-2 (PCR) Negative 09/28/21 09/28/21 09/28/21 06:20 06:20 06:20 WBC RBC Hgb 8.5 L Hct 26.0 L MCV MCH MCHC RDW Plt Count Neut % (Auto) Lymph % (Auto) [place] % (Auto) Eos % (Auto) Baso % (Auto) Lymph # (Auto) [place] # (Auto) Baso # (Auto) Total Counted Seg Neutrophils % Band Neutrophils % Lymphocytes % (Manual) Monocytes % (Manual) Eosinophils % (Manual) Metamyelocytes % Myelocytes % Neutrophils # (Manual) Nucleated RBCs Plt Morphology Comment RBC Morphology Poikilocytosis Schistocytes Sodium 147 H Potassium 3.8 Chloride 115 H Carbon Dioxide 19 L BUN 63 H Creatinine 2.06 H Estimated GFR 23.1 L BUN/Creatinine Ratio 30.6 H Glucose 118 H Calcium 9.2 Iron TIBC % Saturation Transferrin Ferritin Total Bilirubin AST ALT Alkaline Phosphatase Total Creatine Kinase 329 H CK-MB (CK-2) CK-MB (CK-2) Rel Index Troponin I NT-Pro-B Natriuret Pep Total Protein Albumin Globulin Albumin/Globulin Ratio Vitamin B12 > 1000 H TSH 1.74 Urine Color Urine Appearance Urine pH Ur Specific [place] Urine Protein Urine Glucose (UA) Urine Ketones Urine Occult Blood Urine Nitrate Urine Bilirubin Urine Urobilinogen Ur Leukocyte Esterase Urine RBC Urine WBC Ur Squamous Epith Cells Urine Bacteria Ur Culture Indicated? SARS-CoV-2 (PCR) [facility] Medical History Arthritis (~2013) Cholelithiasis (~06/2017) Colon polyps (~2006) Diarrhea Fatty liver (~01/2014) Fibroids Foot fracture, left GERD (gastroesophageal reflux disease) (~01/2014) Hypertension Surgical History History of back surgery History of tonsillectomy and adenoidectomy History of total abdominal hysterectomy and bilateral salpingo-oophorectomy Hx of hernia repair Hx of surgical procedure Family History Father Cancer Mother Hypertension Social History Smoking Status: Former smoker Assessment & Plan Assessment & Plan narrative: 1. Acute dehydration with SANDY -patient with recent fall and not eating well, noted uremic with BUN 73 and creatinine 2.92, baseline creatinine 0.79 this past June -renal ultrasound no hydronephrosis -received 2 L NS bolus in the ED -continue NS for gentle rehydration -recheck renal labs in a.m. 2. Acute on chronic anemia -hemoglobin 8.5 versus 11.8 back in June -check iron, ferritin, B12 and folate -brown guaiac-negative stool noted 3. Constipation -tap water enema 4. Pelvic pain status post ground level fall, likely ligament/muscle strain -no fracture on CT -PT consult -Tylenol as needed 5. Memory impairment -as noted concerned about poor short-term memory and behavioral changes concerning for dementia -OT consult for cognitive evaluation -check TSH, B12 new 6. Alcohol use disorder -history of excessive alcohol use 2-3 mixed drinks (scotch) a day until 1 year ago when decreased to 1 mixed drink a day -increases risk of falls, further cognitive decline - prepares her drink each evening, advised him to start cutting back on amount of alcohol in her drinks 7. Abnormal weight loss - endorses decrease food intake over past year with guestimate 15 lb weight loss -dietitian consult requested 8.? Hypertension, chronic -hold atenolol for now Time Spent With Patient Critical Care time: I spent a total of [] minutes of critical care time on this patient's care today; this time is exclusive of procedural time. Quality VTE Deep Vein Thrombosis/Pulmonary Embolism Present on Admission: No
[2021-09-28] MEDS: METOPROLOL ER 25 MG TABLET PO ×2 (14:30→22:07)
[2021-09-28] MEDS: BISACODYL 10 MG SUPP PR (16:00)
--- NOTE | 2021-09-28 16:59 | PC.NURSE ---
pt is very confused and intermittently agreeable to care. She yells when she talks, but doesn't seem to be hard of hearing. The DI nurse arrives this a.m. to place a peripheral IV and she is reminded multiple times not to pull the IV out, and it is wrapped with koban.After her IV antibiotic ceftriaxone is complete she pulls out the IV. She calls out for Thony: (her ) and continues to repeat that she wants him to come take her home. He visits at her bedside today but she had demanded to go to sleep and rest, declining PT/OT and meals. He tells nursing staff If I am going to take her home, I'm going to need her to be able to walk and I will need a sedative for her. RN attempted to encourage patient to eat and drink trying to educate her about nutrition and hydration however she takes about a half a cup and refuses anymore and a couple of bites and refuses any more.WEATHER REPORTER attempts to get patient out of bed when patient asked to walk but she screams and does not initiate weight bearing. She complains of pain to her rectum. X1 enema administered with much difficulty as she continued to scream and turn in bed. RN attempted to reestablish IV access without success. MD aware, and Pt with cold hands and feet, with low 02 saturation. Placed patient on 2 LNC, notified RT and MD. 02 sats 94% on 2L but patient needing frequent reminding to keep the prongs in her nose. Continuous monitoring.
[2021-09-29] VITALS (16 sets, daily range): BP systolic 105–154; BP diastolic 61–86; PULSE 61–125; RESP 16–24; TEMP 36.6–37.7; O2SAT 90–100
[2021-09-29 08:47] LABS: Mean Corpuscular HGB Conc 33.4 % (30-36); Mean Corpuscular Hemoglobin 30.6 PG (26-34); Mean Corpuscular Volume 91.6 fL (80-100); Platelet Count 221 X10^3/uL (150-400); Red Blood Cell Count 2.62 X10^6/uL (4.0-5.2); Red Cell Distribution Width 18.2 % (11.6-14.8); White Blood Cell Count 7.7 X10^3/uL (4.5-11.0)
[2021-09-29 09:02] LABS: BUN Creatinine Ratio 34.3 (6-22); Blood Urea Nitrogen 47 mg/dL (7-17); Calcium 9.3 mg/dL (8.4-10.2); Carbon Dioxide 23 mmol/L (22-32); Chloride 116 mmol/L (98-107); Glucose 117 mg/dL (80-110); HEMOLYSIS < 15 (0-50); Potassium 3.9 mmol/L (3.4-5.1); Sodium 150 mmol/L (137-145)
[2021-09-29] MEDS: polyethylene glycoL 3350 17 GM POWD.PACK PO (09:40)
[2021-09-29] MEDS: AMOXICILLIN/CLAV 500/125 MG 1 TAB PO ×2 (09:40→22:03)
[2021-09-29] MEDS: HEPARIN 5,000 UNIT/ML VIAL 5000 UNIT SUBCUT ×2 (09:40→22:04)
[2021-09-29] MEDS: MULTIVITAMIN 1 TABLET 1 TAB PO (09:40)
--- NOTE | 2021-09-29 10:24 | OT.IPNOTE ---
Attempted OT eval and pt insistent that she is fine and just wanting on her to come. To attempt OT eval again later.
--- NOTE | 2021-09-29 10:50 | PT.IIE ---
Medical History (Last Reviewed 09/27/21 @ 14:13 by Tomas Hamilton PA-C) Arthritis (~2013) Cholelithiasis (~06/2017) Colon polyps (~2006) Diarrhea Fatty liver (~01/2014) Fibroids Foot fracture, left GERD (gastroesophageal reflux disease) (~01/2014) Hypertension Physical Therapy Inpatient Evaluation/Re-Eval M1 PT/OT-IP Prior Functional Status Start: 09/28/21 09:09 Freq: NEEDED Status: Active Protocol: Document 09/29/21 10:50 AB (Rec: 09/29/21 12:28 [facility] Medical Review Prior Functional Status Medical History Reviewed Yes Communication able to answer question but questionable accuracy due to dementia; spouse in room and provided info Mobility and Gait spouse stated that pt was modified independent with all mobilities and ambulation without AD but usually carrys a cane with her in case she needs it. per spouse, pt had a fall ~ 8 days ago and has been using a manual w/c since then and he asssits pt with transfers Social History Household Members spouse Living Arrangements House Number of Floors (Floors) Two Floors Number of Stairs To Enter/Railing? pt stays on main level of the house 3 steps without rails to enter and pt uses SPC for stair climbing Home Equipment Four Wheel Walker,Straight Cane,Manual Wheelchair Employment Status Retired M2 PT-IP Current Condition Start: 09/28/21 09:09 Freq: NEEDED Status: Active Protocol: Document 09/29/21 10:50 AB (Rec: 09/29/21 12:28 [facility] Physical Therapy Current Condition Current Condition Evaluation Date 09/29/21 Treatment Diagnosis dehydration; difficulty in walking Onset Date 09/27/21 M3 PT-IP Subjective Start: 09/28/21 09:09 Freq: NEEDED Status: Active Protocol: Document 09/29/21 10:50 AB (Rec: 09/29/21 12:24 AB [email or web address]) Subjective Physical Therapy Visit Type Type Initial Evaluation Visit Start Time 10:50 Visit Stop Time 11:16 Total Visit Minutes 26 Number of AUTOMOTIVE WINDOW TINTER Visits 0 Physical Therapy Visit Comments Patient Comments agreed to do PT but requires max cues and reorientation Therapy Pain Assessment Pain When Pain Assessed During Mobility Pain Present Pain Present Pain Reported Location Left Knee Scale Used pain scale not stated Pain Behaviors Guarding,Holding Area Pain Management Techniques Distraction,Modification of Treatment,Re-positioning, Timing of Activity with Medications M4 PT-IP Mobility and Gait Start: 09/28/21 09:09 Freq: NEEDED Status: Active Protocol: Document 09/29/21 10:50 AB (Rec: 09/29/21 12:24 AB [id number]) PT-Transfer Assessment Sit to and From Stand Sit to and from Stand Maximum Assistance,2 Person Assistance,Use of Upper Extremities Equipment Transfer Assistive Device Gait Belt,Front Wheeled Walker Orthotic/Prosthetic Devices or Brace: No Transfers Transfer Destination Bed,Chair Transfer Technique Stand Step Pivot Transfer Ability Level of Assist Maximum Assistance,2 Person Assistance,Use of Upper Extremities Comments Mobility Comments pt sitting on chair. spouse initially in room but stated that he will step out during PT. pt easily gets agitated and requires cues and reorientation. pt has dx dementia affecting following instructions and safety awareness. completed sit to stand x 4 attempts. pt tends to push posteriorly requiring max Ax 2 and max cues. pt with (+) shaking during first standing and pt has to sit down. pt cued for balance and steadiness but unable to follow. completed sit to stand again max A x 2 and step transfer to bed using fWW max A x 2 and max cues. pt stated that she will just stay seated on the EOB and will go home. initially refusing to get up back on the chair. educated pt and agreed to get up again. sit to stand max A x 2 and step transfer using FWW max A x 2 and max cues. positioned pt on chair. call light and table placed within reach. chair alarm on. PT-Balance Assessment Sitting Balance and Reactions Static Sitting Balance Ability Good Dynamic Sitting Balance Ability Fair Standing Balance and Reactions Static Standing Balance Ability Poor Dynamic Standing Balance Ability Poor Device Used FWW M5 PT-IP Objective Assessments Start: 09/28/21 09:09 Freq: NEEDED Status: Active Protocol: Document 09/29/21 10:50 AB (Rec: 09/29/21 12:24 AB [email or web address]) Orientation Orientation/Cognition Level of Alertness Confusional State Orientation Name Language Function Ability No Deficits Noted Safety Awareness Decreased Safety Awareness Memory Description Short Term Impaired,Correction Impaired Gross Range of Motion Lower Extremity ROM Impairments knee flexor tightness Strength Lower Extremity Strength Assessment Bilaterally Impaired Comments Strength Comments RLE: 3/5 LLE: 3+/5 Muscle Tone Muscle Tone WNL Yes M6 PT-IP Treatment Start: 09/28/21 09:09 Freq: NEEDED Status: Active Protocol: Document 09/29/21 10:50 AB (Rec: 09/29/21 12:24 AB [id number]) Physical Therapy Treatment Education Education Provided Safety M7 PT-IP Assessment and Plan Start: 09/28/21 09:09 Freq: NEEDED Status: Active Protocol: Document 09/29/21 10:50 AB (Rec: 09/29/21 12:24 AB [email or web address]) PT Summary Assessment and Plan Potential Rehabilitation Potential Fair Status of Condition at Evaluation Evolving Summary Impairments Pain,ROM,Strength,Balance, Coordination,Sensation,Tone, Cognition,Bed Mobility, Transfers,Gait,Activity Tolerance Assessment Summary pt requiring max A x 2 and max cues with mobility and unable to ambulate at this time. pt with dx dementia and has difficulty following directions. pt lives with spouse but spouse stated that he will not be able to assist pt much. Pt will require SNF rehab and possible LTC placement. will continue to assess progress. Goals Bed Mobility Goal Standby Assistance Transfer Goal Moderate Assistance,Front Wheeled Walker Gait Goal Moderate Assistance,Front Wheel Walker Gait Distance 50 Other Goals improve transfers using FWW CGA and ambulation CGA using FWW 50 ft Days to Meet Goals 10 Frequency of Treatment Frequency Of Treatment Once a Day Treatment Plan Physical Therapy Treatment Plan Bed Mobility Training,Transfer Training,Gait Training, Therapeutic Exercise,Balance Retraining,Discharge Planning, Hot or Cold Pack,Neuromuscular Re-ed,Coordination Retraining Precautions Other Precautions falls Recommendations To Nursing Amount of Assist Needed 2 Person Assist Discharge Recommendations PT Discharge Recommendations SNF Rehab Transportation Needs at Discharge Wheelchair/Cabulance
[2021-09-29] MEDS: METOPROLOL ER 50 MG TABLET PO (12:38)
--- NOTE | 2021-09-29 12:44 | OT.IPNOTE ---
Attempted to see pt again for OT eval and pt fixated on looking for her so that she can go home. Able to cut the meat on her try for her but pt insistent not to eat. Nursing aware. Pt mainly just orientated to her name.NO charge.
--- NOTE | 2021-09-29 12:47 | OT.IPNOTE ---
Attempted to see pt for OT eval. Pt focused on looking for her so that she can go home. Able to assist pt with set-up for her tray but not wanting to eat at this time. Pt mainly just orientated to her name at this time. NO charge.
--- NOTE | 2021-09-29 13:15 | P.PN_ITS ---
Subjective Subjective Date Patient Seen: 09/29/21 Time Patient Seen: 08:00 Interval history: She is pleasantly demented, she has no complaints. However she has pulled her IV out, and she has not eaten significantly Exam Vital Signs (past 8 hours): - 09/29/21 08:00 09/29/21 09:35 09/29/21 11:48 Temperature 99.4 F Pulse Rate 118 H 61 Respiratory Rate 24 Blood Pressure 146/69 H 105/86 Pulse Oximetry 95 96 09/29/21 11:55 09/29/21 12:38 Temperature 98.4 F Pulse Rate 61 61 Respiratory Rate 20 Blood Pressure 108/77 108/77 Pulse Oximetry 93 Oxygen Delivery Method Room Air Oxygen Flow Rate 0 Narrative Exam Narrative: General: no acute distress Lungs:? Clear bilaterally Heart:? regular rate and rhythm, no murmurs Abdomen:? Soft, non tender Objective Labs Result Diagrams: 09/29/21 08:05 09/29/21 08:05 Labs: Laboratory Results - last 24 hr 09/29/21 09/29/21 08:05 08:05 WBC 7.7 RBC 2.62 L Hgb 8.0 L Hct 24.0 L MCV 91.6 MCH 30.6 MCHC 33.4 RDW 18.2 H Plt Count 221 Sodium 150 H Potassium 3.9 Chloride 116 H Carbon Dioxide 23 BUN 47 H Creatinine 1.37 H Estimated GFR 37.0 L BUN/Creatinine Ratio 34.3 H Glucose 117 H Calcium 9.3 PFSH Medical History Arthritis (~2013) Cholelithiasis (~06/2017) Colon polyps (~2006) Diarrhea Fatty liver (~01/2014) Fibroids Foot fracture, left GERD (gastroesophageal reflux disease) (~01/2014) Hypertension Surgical History History of back surgery History of tonsillectomy and adenoidectomy History of total abdominal hysterectomy and bilateral salpingo-oophorectomy Hx of hernia repair Hx of surgical procedure Family History Father Cancer Mother Hypertension Social History household members: spouse Smoking Status: Former smoker Assessment & Plan Assessment & Plan narrative: 1. Acute dehydration with SANDY, improving -patient with recent fall and not eating well, noted uremic with BUN 73 and cr eatinine 2.92, baseline creatinine 0.79 this past June -renal ultrasound no hydronephrosis -received 2 L NS bolus in the ED -patient pulled out IV, now encouraging oral intake -recheck renal labs in a.m. 2. Acute on chronic anemia -hemoglobin 8.5 versus 11.8 back in June -brown guaiac-negative stool noted 3. Constipation -tap water enema 4. Pelvic pain status post ground level fall, likely ligament/muscle strain -no fracture on CT -PT consult -Tylenol as needed 5. Memory impairment -as noted concerned about poor short-term memory and behavioral changes concerning for dementia -OT consult for cognitive evaluation -check TSH, B12 new 6. Alcohol use disorder -history of excessive alcohol use 2-3 mixed drinks (scotch) a day until 1 year ago when decreased to 1 mixed drink a day -increases risk of falls, further cognitive decline - prepares her drink each evening, advised him to start cutting back on amount of alcohol in her drinks 7. Abnormal weight loss - endorses decrease food intake over past year with guestimate 15 lb weight loss -dietitian consult requested 8.? Hypertension, chronic -hold atenolol for now Time Spent With Patient Critical Care time: I spent a total of [] minutes of critical care time on this patient's care today; this time is exclusive of procedural time. Quality VTE Deep Vein Thrombosis/Pulmonary Embolism Present on Admission: No
--- NOTE | 2021-09-29 14:34 | CM.DANOTE ---
Addendum entered by Miranda Bledsoe R.N. 09/29/21 15:22: CM heard back from november at [facility] and they are not able to accept due to patients Dementia and unstable state in the evening. CM will continue to look for SNF placement Original Note: DCP Assessment: Patient is a 80 yr old female who was admitted for weakness and SANDY. Patient currently lives with her Thony in a single level home. CM attempted to meet with the patient at bedside but she was not oriented and was confused. Patient was able to tell me her name and her husbands name but then asked If CM was her mother. CM called Patients Thony to discuss dC planning. Patient is independent with ADLs accept food prep, medication management and is currently needing help with ambulation. Patients would like the patient to go to SNF here in [facility] as their first choice and to any SNF facility in [facility] as there secondary choice. CM called Michelle at [facility] who is reviewing patients chart for possible admission. CM department will follow up with [facility] tomorrow along with [facility], [facility] and [facility] about referrals sent to them. CM also discussed secondary plan if no SNF can be found in [place] or [facility]. Patients would like his to go home with HH services. I: AARP MCR and Self pay Plan: DC to SNF vs HOme with and HH. Miranda bledsoe RnWrapper Selector Discharge Planning/Care Management Advanced directive, confirm from FAMILY Start: 09/27/21 18:32 Freq: Q24H Status: Active Protocol: Document 09/28/21 18:32 AGW (Rec: 09/29/21 02:54 AGW [id number]) Advance Directive, confirm on record Time 19:00 Person contacted spouse Copy received No CM Discharge Assessment Start: 09/29/21 14:27 Freq: Status: Active Protocol: Document 09/29/21 14:27 HS (Rec: 09/29/21 14:34 HS [id number]) Discharge Planning Assessment Assigned Photocopying Equipment Repairer Miranda Bledsoe RN Case Mananger DPOA/Assigned Designee Name Thony Corea - spouse Advance Directives? Yes Advance Directives on File No History Provided By Family Member Has Patient been admitted in last 30 No days? Prior Living Arrangements House Household Members spouse Type of transporation used prior to Relies on Others admit Independent with ADL's No Is patient alert and oriented? No Needs Assistance With Meal Prep,Managing Medications ,Home Chores / Shopping Caregiver for Another No DME Already Rented / Owned Wheelchair,FWW / Walker Patient/Family Preference Fpc Facility Comment patients is DPOA and [facility] and [place] [facility] as secondary choices Barriers to Discharge Yes Comment SNF placement Discharge Plan Fpc Facility Transportation Arrangement facility will provide transportation Referrals Initiated Fpc If patient plan is SNF: Has PASSR been No completed? Medicare Choice List Provided Yes SNF/HH Preference [facility] [place] as 1st choice then any faciliy in [facility] as secondary choice Contact Name/Phone November at [facility] - Has Agency SNF been contacted Yes Whiteboard Updated in Patient Room with Yes name and ext. # of Photocopying Equipment Repairer Review Status In Process Next Review Type Continued Stay Review
--- NOTE | 2021-09-29 17:04 | DIET.CONS ---
Dietary Consultation Note Admission Date: 09/29/2021 12:30 Assessment: 80 y/o F admitted with weakness, unwitnessed fall, found to have acute dehydration c SANDY, acute on chronic anemia, constipation, pelvic pain, memory impairment, ETOH use disorder, abnormal wt loss, and HTN. Per staff notes, reported 15# wt loss possibly over the last year. Per EMR records she has gained wt, though pt does have muscle loss signs. Unclear of reliability of wt hx. Nutrition focused physical exam reveals depressed alevism, hollowed eyes, prominent bony shoulders. EMR wt hx: 09/17/20: 41.5kg (+8.3kg in almost a year) 07/13/21: 53.7kg (-3.86kg or 7.2% over 3 months - just under moderate wt loss) 07/23/21: 46kg (+3.8kg) 09/27/21: 49.8kg current Reports UBW of 47.7kg BMI moderately low for age Low PO reported and since admit range of 25-100% PO. It is possible that Conor would qualify for severe protein calorie malnutrition, given her physical signs and reported low PO. Current evidence certainly qualifies her for moderate PCM. Ht: 152.4 cm Wt: 49.8 kg BMI: 21.4 Last BM: 09/29/21 (09/29/21 04:41) MNA: Jerome Score: 13 Diet: 09/27/21 Dinner General (Regular) Diet Diet Modifications: Nutrition Percent Meal Consumed 25% 09/29/21 15:04 Percent Meal Consumed 100% 09/29/21 09:45 Labs: RBC 2.62 X10^6/uL (4.0-5.2) L 09/29/21 08:05 Hgb 8.0 g/dL (12.0-16.0) L 09/29/21 08:05 Hct 24.0 % (36-46) L 09/29/21 08:05 Creatinine 1.37 mg/dL (0.52-1.04) H 09/29/21 08:05 Iron 36 ug/dL (37-170) L 09/27/21 15:09 % Saturation 19 % (15-50) 09/27/21 15:09 Ferritin 950 ng/mL (11-264) H 09/27/21 11:50 NT-Pro-B Natriuret Pep 1190 pg/mL (<450) H 09/27/21 15:09 Nutrition Diagnosis: Chronic moderate protein calorie malnutrition r/t inadequate PO, possible mental status impacting PO aeb reported low PO, physical signs of malnutrition, moderately low BMI for age. Interventions: ONS BID ; MNT for higher protein foods. Reviewed what protein foods she enjoys and provided highlighted handout. EER: 1500kcals (per BMI 30kcal/kg) ; 75-85g PRO (1.5-1.7g/kg PRO) Monitoring/Evaluations: RD to follow-up in 2-3 days. Monitoring weight, PO, and ONS tolerance Electronically Signed by: Deana Orellana 09/29/21 17:04 Clinical Dietitian [address] [id number]
[2021-09-29] MEDS: METOPROLOL ER 25 MG TABLET PO (22:03)
[2021-09-30] VITALS (16 sets, daily range): BP systolic 98–123; BP diastolic 54–65; PULSE 95–119; RESP 18–20; TEMP 36.3–38.2; O2SAT 93–100
[2021-09-30] MEDS: ACETAMINOPHEN 325 MG TABLET 650 MG PO ×2 (00:13→13:23)
[2021-09-30 05:24] LABS: BUN Creatinine Ratio 36.2 (6-22); Blood Urea Nitrogen 50 mg/dL (7-17); Calcium 8.6 mg/dL (8.4-10.2); Carbon Dioxide 20 mmol/L (22-32); Chloride 114 mmol/L (98-107); Estimated Glomerular Filt Rate 36.7 mL/min (>60); Glucose 106 mg/dL (80-110); HEMOLYSIS < 15 (0-50); Potassium 4.2 mmol/L (3.4-5.1); Sodium 145 mmol/L (137-145)
--- NOTE | 2021-09-30 09:31 | CM.DPNOTE ---
Faxed referral packet to [facility] per Oriana and received conf. Emailed [facility] & [facility]. Mitali Castro CM Assist.
[2021-09-30] MEDS: METOPROLOL ER 25 MG TABLET PO (09:57)
[2021-09-30] MEDS: MULTIVITAMIN 1 TABLET 1 TAB PO (09:57)
[2021-09-30] MEDS: HEPARIN 5,000 UNIT/ML VIAL 5000 UNIT SUBCUT (09:57)
[2021-09-30] MEDS: AMOXICILLIN/CLAV 500/125 MG 1 TAB PO (09:59)
--- NOTE | 2021-09-30 10:13 | PT-IP ANOTE ---
Pt refused therapy at 10:13 due to fatigue. Pts not agreeable to encouraging pt to participate this AM. Will check back in PM.
--- NOTE | 2021-09-30 12:19 | PT-IP ANOTE ---
Attempted to see pt again at 12:19 w/ OT. Pt adamantly refused any mobilization including sitting up to eat or getting up to change brief. Nursing staff aware.
--- NOTE | 2021-09-30 12:33 | CM.DPC ---
Addendum entered by ELEANOR Dove 09/30/21 15:34: ADD: PT/OT attempted to work with pt again while Dtr and spouse were bedside and pt refused. SW met bedside with pt, spouse, and Dtr Naida and spoke at length with them regarding [facility], [facility], [facility], [facility] not accepting pt and due to pt not participating in PT/OT AARP would not auth SNF rehab as seems more LTC/fpc. SW discussed HH services and frequency and provided [facility] brochure and then provided Senior Resource Guidebook with earmarked PP CG list and LTC placement options and discussed possible cost. Spouse states they cannot afford Memory Care/J[facility] placement at this time but maybe after they sell their house. Spouse agreeable to calling PP CG agencies though with support from Dtr. Dtr has some physical limitations as well and asks many questions. Son called at that time and could likely be available for transport tomorrow around lunchtime and assist physically. SW discussed need for medical justification to remain hospital as spouse was requesting discharge on Tuesday and spouse acknowledged understanding. Pt then was able to get her own shirt on and mostly her pants with min assist and wanted to try to stand and RN and INDUSTRIAL ENGINEERING DIRECTOR attempted but pt states she was too scared. [facility] referral made with plan of likely home tomorrow with spouse and son to assist and F2F needed. BF Original Note: DCP SNF vs HH and family Per MD, pt remains medically stable but needs safe d/c plan. Per PT/OT, due to pt's advanced dementia she has participated some in PT/OT but has since been refusing. Per RN, no significant behaviors since admission. SW followed up with following SNF's given referral: [facility]- no [facility]- need referral faxed again, reviewed, cannot meet her needs due to dementia, no room near RN station available, without COVID booster would need few days of quarantine and unsafe with dementia and not really skillable. [facility]- needs referral faxed again, cannot safely meet pt's needs, declines. [facility]- needs referral faxed again, reviewing. SW met with spouse outside of pt room with OT and he provided some additional information and aware SNF attempts being tried but SW explained again some of the barriers. Spouse also walks with a cane and does not appear to be able to provide significant physical assist. Spouse states though that Dtr lives in [facility] and is not currently working and son lives in [place] and also unemployed at this time and both have been coming up to visit every other weekend in rotation. SW inquired if family could plan to stay at d/c for assist and possible need for caregivers. OT attempted again to work with pt around lunchtime and she refused again politely. SW called spouse who is having lunch with Dtr Naida in [facility] and they are agreeable to arrive bedside around 1330 for CG training with OT/PT and OT to let clinical asst know to make exception for CG training for d/c purposes for Dtr to also be bedside. SW updated spouse that still no accepting SNF and her AARP MCR will not auth due to pt not participating in tx. Plan: SW to follow closely for bedside CG training with spouse and Dtr with PT today around 1330 towards determining home with family assist and HH and PP CG information vs private pay at Memory Care. ELEANOR Dove
--- NOTE | 2021-09-30 12:47 | PC.NURSE ---
Patient refused her lunch tray
--- NOTE | 2021-09-30 13:00 | OT.IPNOTE ---
Attempted to see pt for therapy. Pt politely refusing to get up or have her brief changed, nursing notified.
--- NOTE | 2021-09-30 13:57 | OT.IP.TRT ---
Occupational Therapy Treatment Note M3 OT- IP Subjective and Pain Start: 09/30/21 13:49 Freq: Status: Active Protocol: Document 09/30/21 13:49 [facility] (Rec: 09/30/21 13:56 [facility] [id number]) OT- Subjective Occupational Therapy Visit Type Type Treatment Note Visit Start Time 09:21 Visit Stop Time 13:20 Total Visit Minutes 35 Notes Pt seen for split treatment [id number] and [id number]. Occupational Therapy Visit Comments NOt able to do formal OT eval as pt refusingn to get up. Case management able to set-up caregiver training at 1:30pm today in hopes of trying to encourage pt to get up so possibly able to go home. Pt continues to politely refuse and states just wants to rest at this time. Patient Comments Pt adamantly not wanting to get up and politely refusing each time, NO thank you and thanks for coming to help me. Patient/Caregiver Goals To go home. OT Pain Assessment Pain When Pain Assessed At Rest Pain Present Pain Present Pain Reported Location Back Pain Behaviors Facial Grimacing,Guarding, Holding Area M4 OT- IP ADL's Start: 09/30/21 13:49 Freq: Status: Active Protocol: Document 09/30/21 13:49 [facility] (Rec: 09/30/21 13:56 [facility] [id number]) OT [id number] Comments OT Self-Feeding Comments Pt able to eat her cereal after set-up while in bed. OT ADL-Grooming Comments OT Grooming Comments Pt wanting assist for completeness to brush her hair . OT ADL-Oral Care Comments Oral Care Comments Pt refused. OT ADL-Dressing Comments OT Dressing Comments Pt refusing. OT ADL-Toileting Comments OT Toileting Comments Pt is wet and refusing brief change at this time. OT ADL-Bathing Comments OT Bathing Comments Sponge bath more appropriate at this time. M6 OT- IP Functional Cognition Start: 09/30/21 13:49 Freq: Status: Active Protocol: Document 09/30/21 13:49 [facility] (Rec: 09/30/21 13:56 [facility] [id number]) Cognitive Factors Limiting Selfcare Function Cognitive Ability Level of Alertness Confusional State Patient Orientation Name Attention Span Ability Capable of Focused Attention, Unable to Sustain Attention Ability to Follow Commands Able to Follow One Step Commands with Increased Time, Able to Follow One Step Commands with Repetition Memory Description Short Term Impaired,Ethical Hacker Impaired,Working Impaired Cognitive Tests SLUMS Pt scored 4/30 on the SLUMS and only able to say what states we are in, able to name 5 animals in one minute and able to draw an x on the triangle and pick out the largest shape. Pt score implies dementia. Cognitive Comments Cognitive Assessment Comments Pt not wanting to get up as just wanting to sleep and when asked states has pain and able to let nursing know. Prior to her fall , pt's states she was able to do her ADL's on her own and used a cane at times to walk. To attempt OT eval again tomorrow.
--- NOTE | 2021-09-30 14:52 | PC.NURSE ---
Day shift: Pt dressed and wanted to stand up at approx 1420. Helped to side of bed and gait belt on Pt. This greeting card writer and RAYON WINDER Ron attempted to get Pt to stand but she was not able. She said It hurts too much. She also appeared to be scared/frightful of standing. Said No, NO, No, I want to get back in bed now. Does not seem safe to go home. Pt refused to get OOB with PT/OT today as well. Pt's Daughter in room at this time. Spouse sitting in hallway in WC at this time.
--- NOTE | 2021-09-30 15:24 | P.PN_ITS ---
Subjective Subjective Date Patient Seen: 09/30/21 Interval history: She has no specific complaints today. Exam Vital Signs (past 8 hours): - 09/30/21 08:50 09/30/21 09:25 09/30/21 10:30 Temperature 98.5 F Pulse Rate 119 H Respiratory Rate 18 Blood Pressure 105/63 Pulse Oximetry 100 100 94 09/30/21 10:41 09/30/21 14:59 Temperature Pulse Rate 95 H Respiratory Rate Blood Pressure Pulse Oximetry 95 Oxygen Delivery Method Room Air Oxygen Flow Rate 0 Narrative Exam Narrative: General: no acute distress Lungs:? Clear bilaterally Heart:? regular rate and rhythm, no murmurs Abdomen:? Soft, non tender Objective Labs Result Diagrams: 09/29/21 08:05 09/30/21 04:55 Labs: Laboratory Results - last 24 hr 09/30/21 04:55 Sodium 145 Potassium 4.2 Chloride 114 H Carbon Dioxide 20 L BUN 50 H Creatinine 1.38 H Estimated GFR 36.7 L BUN/Creatinine Ratio 36.2 H Glucose 106 Calcium 8.6 PFSH Medical History Arthritis (~2013) Cholelithiasis (~06/2017) Colon polyps (~2006) Diarrhea Fatty liver (~01/2014) Fibroids Foot fracture, left GERD (gastroesophageal reflux disease) (~01/2014) Hypertension Surgical History History of back surgery History of tonsillectomy and adenoidectomy History of total abdominal hysterectomy and bilateral salpingo-oophorectomy Hx of hernia repair Hx of surgical procedure Family History Father Cancer Mother Hypertension Social History household members: spouse Smoking Status: Former smoker Assessment & Plan Assessment & Plan narrative: 1. Acute dehydration with SANDY, improving -patient with recent fall and not eating well, noted uremic with BUN 73 and creatinine 2.92, baseline creatinine 0.79 this past June -renal ultrasound no hydronephrosis -received 2 L NS bolus in the ED -patient pulled out IV, now encouraging oral intake -recheck renal labs in a.m. 2. UTI -E. coli sensitive to multiple medications -ordered for augmentin continue for 5-7 days 3. Acute on chronic anemia -hemoglobin 8.5 versus 11.8 back in June -[facility] guaiac-negative stool noted -labs show iron deficiency, ordered PO iron 4. Constipation -tap water enema prn 5. Pelvic pain status post ground level fall, likely ligament/muscle strain -no fracture on CT -PT consult -Tylenol as needed 6. Memory impairment -as noted concerned about poor short-term memory and behavioral changes concerning for dementia -OT consult for cognitive evaluation -check TSH, B12 new 7. Alcohol use disorder -history of excessive alcohol use 2-3 mixed drinks (scotch) a day until 1 year ago when decreased to 1 mixed drink a day -increases risk of falls, further cognitive decline - prepares her drink each evening, advised him to start cutting back on amount of alcohol in her drinks 8. Abnormal weight loss - endorses decrease food intake over past year with guestimate 15 lb veronica ght loss -dietitian consult requested 9.? Hypertension, chronic -hold atenolol for now -replaced with metoprolol due to sandy Time Spent With Patient Critical Care time: I spent a total of [] minutes of critical care time on this patient's care today; this time is exclusive of procedural time. Quality VTE Deep Vein Thrombosis/Pulmonary Embolism Present on Admission: No
--- NOTE | 2021-09-30 17:53 | PC.NURSE ---
Patient refused to eat dinner. She thought it was morning, I did correct her and informed her that it was 5pm and she was still not interested.
[2021-10-01 01:53] VITALS: O2SAT 95
[2021-10-01 04:00] VITALS: BP 98/52; PULSE 112; RESP 18; TEMP 36.9; O2SAT 95
[2021-10-01 06:00] VITALS: O2SAT 94
[2021-10-01 08:10] VITALS: BP 129/67; PULSE 131; RESP 18; TEMP 37.3; O2SAT 95
[2021-10-01 08:37] LABS: BUN Creatinine Ratio 29.6 (6-22); Blood Urea Nitrogen 34 mg/dL (7-17); Carbon Dioxide 22 mmol/L (22-32); Chloride 117 mmol/L (98-107); Estimated Glomerular Filt Rate 45.3 mL/min (>60); Glucose 99 mg/dL (80-110); HEMOLYSIS < 15 (0-50); Potassium 3.9 mmol/L (3.4-5.1); Sodium 150 mmol/L (137-145)
[2021-10-01 09:15] VITALS: O2SAT 97
[2021-10-01] MEDS: FERROUS SULFATE 325 MG TABLET PO (09:17)
[2021-10-01] MEDS: METOPROLOL ER 25 MG TABLET PO (09:17)
[2021-10-01] MEDS: MULTIVITAMIN 1 TABLET 1 TAB PO (09:17)
[2021-10-01] MEDS: polyethylene glycoL 3350 17 GM POWD.PACK PO (09:17)
[2021-10-01] MEDS: HEPARIN 5,000 UNIT/ML VIAL 5000 UNIT SUBCUT (09:18)
--- NOTE | 2021-10-01 09:34 | DI.RAD.S_ITS ---
PROCEDURE: XR FOOT RT MIN 3V INDICATIONS: foot pain TECHNIQUE: 3 views of the foot were acquired. COMPARISON: [facility], , FOOT 3V LEFT, 06/04/2015, 11:50. FINDINGS: Bones: No fractures or dislocations. No suspicious bony lesions. Generalized decrease in osseous mineralization noted. First and 3rd tarsometatarsal joint space narrowing without significant osteophyte present. Soft tissues: No tibiotalar joint effusion. Achilles tendon appears normal. IMPRESSION: Osteopenia and mild tarsometatarsal osteoarthritis Approved by: Andre Trinh M.D. on 10/01/2021 at 9:45
--- NOTE | 2021-10-01 09:35 | DI.RAD.S_ITS ---
PROCEDURE: XR FOOT LT MIN 3V INDICATIONS: foot pain TECHNIQUE: 3 views of the foot were acquired. COMPARISON: [facility], , FOOT 3V LEFT, 06/04/2015, 11:50. FINDINGS: Bones: Generalized decrease in osseous mineralization noted. Old healed 4th and 1st metatarsal fracture noted. There is a linear lucency through the mid 2nd metatarsal diaphysis, only visible on the frontal view. Soft tissues: No tibiotalar joint effusion. Achilles tendon appears normal. IMPRESSION: 1. Linear lucency through the mid 2nd metatarsal. Differential would be skin fold versus fracture. Consider follow-up in 10- 15 days to assess for healing 2. Osteopenia and old healed 1st and 4th metatarsal fractures. Approved by: Andre Trinh M.D. on 10/01/2021 at 9:59
--- NOTE | 2021-10-01 10:52 | PT.IPTN ---
Physical Therapy Treatment Note M2 PT-IP Current Condition Start: 09/28/21 09:09 Freq: NEEDED Status: Active Protocol: Document 09/29/21 10:50 AB (Rec: 09/29/21 12:28 AB [id number]) Physical Therapy Current Condition Current Condition Evaluation Date 09/29/21 Treatment Diagnosis dehydration; difficulty in walking Onset Date 09/27/21 M3 PT-IP Subjective Start: 09/28/21 09:09 Freq: NEEDED Status: Active Protocol: Document 10/01/21 10:23 KS (Rec: 10/01/21 12:10 KS [id number]) Subjective Physical Therapy Visit Type Type Treatment Note Visit Start Time 10:23 Visit Stop Time 10:52 Total Visit Minutes 29 Notes Pts family present Number of NET WASHER Visits 1 Physical Therapy Visit Comments Patient Comments Pt resistant to therapy. M4 PT-IP Mobility and Gait Start: 09/28/21 09:09 Freq: NEEDED Status: Active Protocol: Document 10/01/21 10:23 KS (Rec: 10/01/21 12:10 KS [id number]) PT-Bed Mobility Assessment Supine to Sit Supine to Sit Maximum Assistance,2 Person Assistance,Head of Bed Elevated,Bedrails Sit to Supine Sit to Supine Maximum Assistance,1 Person Assistance Scooting Scooting to Edge of Bed Maximum Assistance Scooting Up and Down in Bed Dependent PT-Transfer Assessment Comments Mobility Comments Pt in bed upon arrival w/ and daughter in room. Pt at first agreeable to put her pants on and required Max A x2 w/ max cues to scoot EOB. Upon initiation of movement pt began resisting and saying NO and Lay me back down!. Pt unwilling to participate in sit<>stand and despite encouragement from therapy staff and family, pt tried to lay herself back down but was unable to elevate her LE back into bed resulting in Max A . Pt required Max A x2 for scooting up into bed. Her pants were up to her hips and she was able to pull them over her hips whilelaying down w/ increased difficulty but she was able to slightly roll side to side and bend R knee to assist. Pt continued to adamantly refuse further treatment even w/ increased encouragement, cues, and explanation. Pt left in bed w/ all needs in reach, alarm on, and family in room. PT-Balance Assessment Sitting Balance and Reactions Static Sitting Balance Ability Poor Dynamic Sitting Balance Ability Poor M5 PT-IP Objective Assessments Start: 09/28/21 09:09 Freq: NEEDED Status: Active Protocol: Document 09/29/21 10:50 AB (Rec: 09/29/21 12:24 AB [id number]) Orientation Orientation/Cognition Level of Alertness Confusional State Orientation Name Language Function Ability No Deficits Noted Safety Awareness Decreased Safety Awareness Memory Description Short Term Impaired,Senior Care Impaired Gross Range of Motion Lower Extremity ROM Impairments knee flexor tightness Strength Lower Extremity Strength Assessment Bilaterally Impaired Comments Strength Comments RLE: 3/5 LLE: 3+/5 Muscle Tone Muscle Tone WNL Yes M6 PT-IP Treatment Start: 09/28/21 09:09 Freq: NEEDED Status: Active Protocol: Document 10/01/21 10:23 KS (Rec: 10/01/21 12:10 KS [id number]) Physical Therapy Treatment Education Education Provided Safety M7 PT-IP Assessment and Plan Start: 09/28/21 09:09 Freq: NEEDED Status: Active Protocol: Document 10/01/21 10:23 KS (Rec: 10/01/21 12:10 KS [id number]) PT Summary Assessment and Plan Potential Rehabilitation Potential Fair Status of Condition at Evaluation Evolving Summary Impairments Pain,ROM,Strength,Balance, Coordination,Sensation,Tone, Cognition,Bed Mobility, Transfers,Gait,Activity Tolerance Assessment Summary Pt continues to refuse most mobility. Max A x2 for bed mobility w/ Max cues. Pt refused to get ot of bed inspite of best efforts. Pts family unable to provide appropriate assistance to pt at this time and pt unsafe to go home. She will require SNF and possibly LTC placement. Goals Bed Mobility Goal Standby Assistance Transfer Goal Moderate Assistance,Front Wheeled Walker Gait Goal Moderate Assistance,Front Wheel Walker Gait Distance 50 Other Goals improve transfers using FWW CGA and ambulation CGA using FWW 50 ft Days to Meet Goals 10 Frequency of Treatment Frequency Of Treatment Once a Day Treatment Plan Physical Therapy Treatment Plan Bed Mobility Training,Transfer Training,Gait Training, Therapeutic Exercise,Balance Retraining,Discharge Planning, Hot or Cold Pack,Neuromuscular Re-ed,Coordination Retraining Precautions Other Precautions falls Recommendations To Nursing Amount of Assist Needed 2 Person Assist Discharge Recommendations PT Discharge Recommendations SNF Rehab Transportation Needs at Discharge Wheelchair/Cabulance
--- NOTE | 2021-10-01 10:58 | OT.IP.EVAL ---
Past Medical History (Last Reviewed 09/27/21 @ 14:13 by Tomas Hamilton PA-C) Arthritis (~2013) Cholelithiasis (~06/2017) Colon polyps (~2006) Diarrhea Fatty liver (~01/2014) Fibroids Foot fracture, left GERD (gastroesophageal reflux disease) (~01/2014) History of back surgery History of tonsillectomy and adenoidectomy History of total abdominal hysterectomy and bilateral salpingo-oophorectomy Hx of hernia repair Hx of surgical procedure Hypertension Surgical History (Last Reviewed 09/27/21 @ 14:13 by Tomas Hamilton PA-C) History of back surgery History of tonsillectomy and adenoidectomy History of total abdominal hysterectomy and bilateral salpingo-oophorectomy Hx of hernia repair Hx of surgical procedure Occupational Therapy Inpatient Evaluation/Re-Eval M1 PT/OT-IP Prior Functional Status Start: 09/28/21 09:09 Freq: NEEDED Status: Active Protocol: Document 09/29/21 10:50 AB (Rec: 09/29/21 12:28 AB [id number]) Medical Review Prior Functional Status Medical History Reviewed Yes Communication able to answer question but questionable accuracy due to dementia; spouse in room and provided info Mobility and Gait spouse stated that pt was modified independent with all mobilities and ambulation without AD but usually carrys a cane with her in case she needs it. per spouse, pt had a fall ~ 8 days ago and has been using a manual w/c since then and he assists pt with transfers Social History Household Members spouse Living Arrangements House Number of Floors (Floors) Two Floors Number of Stairs To Enter/Railing? pt stays on main level of the house 3 steps without rails to enter and pt uses [facility] for stair climbing Home Equipment Four Wheel Walker,Straight Cane,Manual Wheelchair Employment Status Retired M1 PT/OT-IP Prior Functional Status Start: 09/30/21 13:49 Freq: NEEDED Status: Active Protocol: Document 10/01/21 10:58 [facility] (Rec: 10/01/21 11:16 [facility] [id number]) Medical Review Prior Functional Status Medical History Reviewed Yes Communication able to answer question but questionable accuracy due to dementia; spouse in room and provided info Mobility and Gait spouse stated that pt was modified independent with all mobilities and ambulation without AD but usually carrys a cane with her in case she needs it. per spouse, pt had a fall ~ 8 days ago and has been using a manual w/c since then and he assists pt with transfers Activities of Daily Living and IADL's Pt has been need assist for ADL's since her fall. Social History Household Members spouse Living Arrangements House Number of Floors (Floors) Two Floors Number of Stairs To Enter/Railing? pt stays on main level of the house 3 steps without rails to enter and pt uses [facility] for stair climbing Home Equipment Four Wheel Walker,Straight Cane,Manual Wheelchair Employment Status Retired M2 OT-IP Current Condition Start: 09/30/21 13:49 Freq: Status: Active Protocol: Document 10/01/21 10:58 [facility] (Rec: 10/01/21 11:16 [facility] [id number]) Occupational Therapy Current Condition Current Condition Evaluation Date 10/01/21 Treatment Diagnosis Dehydration,weakness, decreased mobility Diagnosis Onset Date 09/27/21 M3 OT- IP Subjective and Pain Start: 09/30/21 13:49 Freq: Status: Active Protocol: Document 10/01/21 10:58 [facility] (Rec: 10/01/21 11:16 [facility] [id number]) OT- Subjective Occupational Therapy Visit Type Type Initial Evaluation Visit Start Time 10:23 Visit Stop Time 10:58 Total Visit Minutes 35 Occupational Therapy Visit Comments Patient Comments Pt's family present for OT eval. Patient/Caregiver Goals TO go home. OT Pain Assessment Pain When Pain Assessed At Rest Pain Present Pain Present Pain Reported M4 OT- IP ADL's Start: 09/30/21 13:49 Freq: Status: Active Protocol: Document 10/01/21 10:58 [facility] (Rec: 10/01/21 11:16 [facility] [id number]) OT [id number] Comments OT Self-Feeding Comments Pt refused eating this morning . OT ADL-Grooming Comments OT Grooming Comments NOt performed. OT ADL-Dressing General Eval Lower Body Dressing Ability Maximum Assistance Comments OT Dressing Comments Assist to help get her pants up over her feet and pt not willing to stand up but also partially due to her pain. Pt able to assist while in supine with ALEXUS to help pull up the pants over her hips. Pt able to bend right knee to assist to turn slightly but did not bend her left knee to assist. Able to notify hospitalist of pt now states has left knee pain. OT ADL-Toileting Comments OT Toileting Comments Not performed. OT ADL-Bathing Comments OT Bathing Comments Sponge bath more appropriate at this time. M5 OT- IP IADL's Start: 09/30/21 13:49 Freq: Status: Active Protocol: Document 10/01/21 10:58 [facility] (Rec: 10/01/21 11:16 [facility] [id number]) OT-Instrumental Activities of Daily Living Home Safety Awareness Awareness of Need for Assistance at Home Decreased Awareness Ability to Problem Solve Emergency Unable to Problem Solve Situations Home Safety Comments Pt mainly just orientated to herself and will need 24/7 assist for all needs at this time. M6 OT- IP Functional Cognition Start: 09/30/21 13:49 Freq: Status: Active Protocol: Document 10/01/21 10:58 [facility] (Rec: 10/01/21 11:16 [facility] [id number]) Cognitive Factors Limiting Selfcare Function Cognitive Ability Level of Alertness Alert,Confusional State Patient Orientation Name Attention Span Ability Capable of Focused Attention, Unable to Sustain Attention Ability to Follow Commands Able to Follow One Step Commands with Increased Time, Able to Follow One Step Commands with Repetition Memory Description Short Term Impaired,Quirk Sander Impaired,Working Impaired Cognitive Comments Cognitive Assessment Comments Pt insistent on not getting up but wanting to go home. When asked pt able to tell therapist that she was hurting in her left knee at this time , nursing and hospitalist notified. OT- Vision and Hearing OT- Vision Assessment Vision Assessment Comments Pt wears glasses. M7 OT- IP Mobility and Balance Start: 09/30/21 13:49 Freq: Status: Active Protocol: Document 10/01/21 10:58 [facility] (Rec: 10/01/21 11:16 [facility] [id number]) OT- Bed Mobility Assessment Rolling Type of Rolling Roll to Left Level of Assistance Maximum Assistance,2 Person Assistance Supine to Sit Supine to Sit Assist Maximum Assistance,2 Person Assistance Sit to Supine Sit to Supine Assist Maximum Assistance,2 Person Assistance OT-Transfer Assessment Comments Mobility Comments Attempted to get pt to the edge fo the bed and needing assist to help move her LLE> RLE and not able to get her all the way upright as wanting to lie back down, pt repeats, I can not, I just want to lie back down. OT- Balance Assessment Sitting Balance and Reactions Static Sitting Balance Ability Poor M8 OT- IP Objective Assessments Start: 09/30/21 13:49 Freq: Status: Active Protocol: Document 10/01/21 10:58 [facility] (Rec: 10/01/21 11:16 [facility] [id number]) OT Strength Comments Strength Comments Pt at least 3-/5 from observation, not able to formally assess. M9 OT- IP Assessment and Plan Start: 09/30/21 13:49 Freq: Status: Active Protocol: Document 10/01/21 10:58 [facility] (Rec: 10/01/21 11:16 [facility] [id number]) OT Summary Assessment and Plan Potential Rehabilitation Potential Poor Analytic Complexity at Evaluation Moderate Summary OT Impairments Pain,Strength,Balance, Functional Cognition, Functional Mobility,Self- Feeding,Grooming,Dressing, Toileting,Bathing,Toilet Transfers,Shower Transfers, Activity Tolerance Progress Towards Goals Slow Progress due to Medical Issues,Slow Progress due to Activity Tolerance,Slow Progress due to Cognition Assessment Summary Pt MOD complexity and man barrier is pain, not will to get up, decreased ability to follow or want to follow commands at this time. If pt able to participate would greatly benefit from skilled rehab as prior pt's states pt prior to this fall able to walk. However,later pt 's admits that she has been slowly declining in her function. Goals Self-Feeding Goal Standby Assistance Grooming Goal Standby Assistance Dressing Goal Minimal Assistance Toileting Goal Minimal Assistance Bathing Goal Minimal Assistance Toilet Transfer Goal Minimal Assistance Shower Transfer Goal Minimal Assistance Patient/Caregiver Education Goal Caregiver Independent Assisting Patient Days to Meet Goals 30 Frequency of Treatment Frequency Of Treatment Once a Day Treatment Plan OT Treatment Plan ADL Training,Functional Cognition Training,Functional Mobility,Patient/Family Education,Discharge Planning Other Treatment Recommendations and Next Transfer to [facility] MAX X 2 Treatment Focus Discharge Recommendations OT Discharge Recommendations SNF Rehab,LTAC Transportation Needs at Discharge Stretcher/Ambulance
[2021-10-01] MEDS: TRAMADOL 50 MG TABLET PO (11:15)
--- NOTE | 2021-10-01 11:16 | CM.DPC ---
DCP Cont: Patient is medically ready for discharge. She has been refusing P.T and O.T. Daughter, Naida Pedroza and , Thony, at bedside. Confirmed that ELEANOR Gastelum, had spent time with spouse and had given him resources. Encouraged spouse to follow up right away, on either home care of memory care, but finances have been an issue. Daughter and spouse stated, we haven't even seen the hospitalist, and he needs to address her pain. Mentioned this to nurse, Yary, and she indicated that he had put in an order for Tramadol. Asked Yary to explain this to family. Confirmed with spouse and daughter, that there is no medical need to keep her here. He is declining BLS, due to cost. Asked patient if she would be willing and try to get up into her wheel-chair and help with staff to get her home, and patient indicated, she would try if this can get her home. She does have a wheel-chair, but a couple of stairs to get into the home. Spouse stated, I can make it work, just get her downstairs into the car, and I can take over. Updated nursing and staff. Yary will discuss pain medication with spouse and daughter. Left a message with Pavan at [facility], and had hospitalist sign face to face. Will order RN, P.T, jonn wilhelm, O.T, and ELEANOR for resources in caregiving. P: Patient is supposed to discharge home today with [facility]. Will complete face to face and orders, and will fax over to [facility]. According to EMBEDDED SOFTWARE MANAGER notes, [facility] referral was already made. Anjelica Matt RN/Staking Technician
[2021-10-01 11:31] VITALS: O2SAT 99
--- NOTE | 2021-10-01 11:32 | P.DS_ITS ---
History of Present Illness History of Present Illness Chief complaint: FELL, LEFT KNEE/BACK/STOMACH PAIN Narrative: Per Dr. Orantes Patient is an 80-year-old female lives at home with brought to the emergency department due to weakness and complaints of groin and leg pain.? Patient had unwitnessed fall at home about 1 week ago.? states that since then she has gotten progressively weaker only able to move short distances and using wheelchair or walker.? Patient herself does not recall the fall.? Patient/ denies LOC, melena, vomiting, constipation or diarrhea.? No cough, chest pain, shortness a breath, fevers or chills.? She is chronically incontinent of urine.? On ED evaluation, patient was noted to be in acute renal failure and more anemic.? Pelvic CT did not show fracture but did show large stool in rectum.? Chest x-ray was normal.? She was mildly tachycardic.? Patient does take Aleve at night. is concerned she has dementia.? States she has very poor short-term/near term memory and also becoming more argumentative especially later in the day.? She does have a scotch drink each evening which ports for her.? states that previously she had 2-3 drinks a night but cut down in the past year.? Also states that she has not been eating well and estimates lost 15 lb in the last year. Discharge Providers Provider Date of admission: 09/27/21 16:25 Discharge Date: 10/01/21 Primary care physician: Ron Cordova MD Consults: 09/27/21 18:32 Consult to [employer] Routine Comment: 09/27/21 19:33 Consult to Dietitian, Adult Routine Comment: Reason For Exam: dec po intake, abnl wt loss Consult to Occupational Therapy Evaluate & Treat Comment: dec short-term memory, family concerned dementia Physician Instructions: Evaluate and treat Consult to Physical Therapy Evaluate & Treat Comment: GLF, CT - no fx, Physician Instructions: Evaluate and Treat 10/01/21 11:29 Consult to Home Health Routine Comment: Reason For Exam: Home Health RN, P.T, O.T, WEB COMMUNICATIONS SPECIALIST, bath aide. Discharge provider: Jakob Lagos MD Summary Hospital Course Discharge Diagnosis: 1. Acute dehydration with SANDY, improving 2. UTI 3. Acute on chronic anemia 4. Constipation 5. Pelvic pain status post ground level fall, likely ligament/muscle strain 6. Memory impairment 7. Alcohol use disorder 8. Abnormal weight loss 9.? Hypertension, chronic Hospital Course: Ms. Pedroza was admitted after a fall and weakness. She was noted to have SANDY and a urinary tract infection. She improved with antibiotics and IV fluids. She had notable memory impairment with a SLUMS of 4. She many times did not want interventions including therapy, IVs. She noted pelvic pain with CT showing no fracture. She also had foot pain with questionable finding on metatarsal on her left foot. I did discuss this with orthopedic surgery who felt there was not fracture and did not think further workup was indicated. The patient did not have specific localized pain in that region of the foot. She did have anemia, with iron deficiency noted. She should continue with iron. The family notes it is difficult to care for the patient at home. They are attempting to find additional bed bug exterminator options. The patient should follow closely with her PCP. Exam Vital Signs (past 8 hours): Oxygen Delivery Method Room Air Oxygen Flow Rate 0 Narrative Exam Narrative: General: no acute distress Lungs:? Clear bilaterally Heart:? regular rate and rhythm, no murmurs Abdomen:? Soft, non tender Objective Labs Result Diagrams: 09/29/21 08:05 10/01/21 08:15 [facility] Medical History Arthritis (~2013) Cholelithiasis (~06/2017) Colon polyps (~2006) Diarrhea Fatty liver (~01/2014) Fibroids Foot fracture, left GERD (gastroesophageal reflux disease) (~01/2014) Hypertension Surgical History History of back surgery History of tonsillectomy and adenoidectomy History of total abdominal hysterectomy and bilateral salpingo-oophorectomy Hx of hernia repair Hx of surgical procedure Family History Father Cancer Mother Hypertension Social History household members: spouse Smoking Status: Former smoker Discharge Plan Discharge Plan Patient Disposition: Home Health Service Provider Discharge Comment: Ms. Pedroza came in with dehydration and weakness. She had a urinary tract infection. She had her medications changed, and should stop taking alendronate and atenolol as those can affect her kidneys. She was switched to a new medicine metoprolol. She should follow up with her primary doctor within a week. Discharge orders & Medications Prescriptions: New metoprolol succinate 25 mg Tablet Extended Release 24 Hr 50 mg PO BID Qty: 60 0RF amoxicillin-pot clavulanate [Augmentin] 500-125 mg Tablet 1 tab PO BID Qty: 6 0RF multivitamin with folic acid [Tab-A-Sera] 400 mcg Tablet 1 tab PO DAILY Qty: 30 0RF tramadol 50 mg tablet 50 mg PO Q6H PRN (Reason: pain) Qty: 30 0RF docusate sodium 100 mg tablet 100 mg PO DAILY Qty: 60 0RF Discontinued atenolol 25 mg tablet See Rx Instructions .ROUTE .COMPLEX Qty: 90 3RF Dose Instruction: take 1 tablet by mouth once daily Rx Instructions: take 1 tablet by mouth once daily alendronate 70 mg tablet 70 mg PO QWEEK Qty: 12 3RF Follow up/Referrals: Ron Cordova MD [Primary Care Provider] - Diet/Activity/Treatments Diet: Diet as Tolerated Visit Report/Discharge Packet Instructions: DI for Dehydration -- Adult, DI for Urinary Tract Infection (UTI), How to Prevent Falls, Metoprolol Discharge Data Primary Care Provider: Ron Cordova Attending Provider: Nolberto Orantes VTE Deep Vein Thrombosis/Pulmonary Embolism Present on Admission: No
--- NOTE | 2021-10-01 12:02 | PC.NURSE ---
pt was able to sit on the side of the bed with minimum assist, however, she was too afraid to stand up and transfer to the wheelchair. She had to be lifted up by her to the wheelchair. patient refused staff to lift her. dc instructions were given to and daughter. scripts given to . I emphasized regarding her change of meds to (metoprolol) and some meds are dc'd and highlighted in paperwork. pt is 2PA to transfer to car from wheel chair.
== END 2021-10-01 11:57 | disposition home health service (06) ==
LOC: ED 13:54 → AC 16:33
PROVIDERS: Internal Medicine; Admitting Provider Internal Medicine; Emergency Provider Physician Assistant; PCP Student in an Organized Health Care Education/Training Program; Referring Provider Physician Assistant; Visit Provider Internal Medicine
DX: N17.8 Other acute kidney failure (principal); R10.2 Pelvic and perineal pain; N39.0 Urinary tract infection, site not specified; B96.20 Unspecified Escherichia coli [E. coli] as the cause of diseases classified elsewhere; E86.0 Dehydration; W18.30XA Fall on same level, unspecified, initial encounter; Y92.008 Other place in unspecified non-institutional (private) residence as the place of occurrence of the external cause; R63.4 Abnormal weight loss; D64.89 Other specified anemias; K59.00 Constipation, unspecified; I10 Essential (primary) hypertension; R41.3 Other amnesia; Z20.822 Contact with and (suspected) exposure to COVID-19
CPT/HCPCS: 36415; 51798; 71045; 72192; 73620; 76770; 80048; 80053; 81001; 82550; 82553; 82607; 82728; 83540; 83550; 83880; 84443; 84484; 85007; 85014; 85018; 85025; 85027; 87077; 87086; 87186; 87635; 93005; 93010; 94760; 97162; 97166; 97530; 97535; 99284; C9803; G0378; J0696; J1644

== ENCOUNTER 2021-10-12 17:11 | Inpatient (IN) | payer MEDICARE, SELFPAY ==
[2021-09-27 18:10] VITALS: BMI 21.4
[2021-10-12 17:19] VITALS: BP 126/83; PULSE 115; RESP 24; TEMP 36.3; O2SAT 93
--- NOTE | 2021-10-12 17:31 | DI.CT.S_ITS ---
PROCEDURE: CT HEAD/BRAIN WO CON INDICATIONS: aloc TECHNIQUE: Noncontrast 4.5 mm thick angled axial sections acquired from the foramen magnum to the vertex, with coronal and sagittal reformats. For radiation dose reduction, the following was used: automated exposure control, adjustment of mA and/or kV according to patient size. COMPARISON: [facility], CT, CT HEAD/BRAIN WO CON, 07/13/2021, 17:55. FINDINGS: Image quality: Mildly degraded by patient motion. CSF spaces: Basal cisterns are patent. No extra-axial fluid collections. The ventricles are symmetric in size and shape. Brain: No acute intracranial hemorrhage or mass effect. There is cerebral volume loss for age, with resultant ventricular and sulcal prominence. There are periventricular and deep white matter chronic small vessel ischemic changes. There is intracranial internal carotid artery atherosclerosis. Skull and face: Calvarium and visualized facial bones appear intact, without suspicious lesions. Sinuses: Visualized sinuses and mastoids are clear. IMPRESSION: No acute intracranial abnormality. Chronic microvascular ischemic changes and age related diffuse cerebral volume loss are redemonstrated. Dictated by: David Read M.D. on 10/12/2021 at 17:51 Approved by: David Read M.D. on 10/12/2021 at 17:55
--- NOTE | 2021-10-12 17:31 | DI.RAD.S_ITS ---
PROCEDURE: XR CHEST 1V INDICATIONS: chest pain TECHNIQUE: One view of the chest was acquired. COMPARISON: [facility], CR, XR CHEST 1V, 09/27/2021, 13:58. FINDINGS: Surgical changes and devices: None. Lungs and pleura: Lungs are clear. No pleural effusions or pneumothorax. Mediastinum: Mediastinal contours appear normal. Heart size is normal. Bones and chest wall: No suspicious bony lesions. Overlying soft tissues appear unremarkable. IMPRESSION: No acute cardiopulmonary abnormality. Dictated by: David Read M.D. on 10/12/2021 at 18:07 Approved by: David Read M.D. on 10/12/2021 at 18:07
--- NOTE | 2021-10-12 18:28 | ED.WEAKNESS ---
HPI - Weakness General Chief complaint: Weakness Stated complaint: FALL WEAKNESS NOT WELL Time Seen by Provider: 10/12/21 18:01 Source: family Mode of arrival: Wheelchair History of Present Illness HPI Narrative: 80F former smoker with history of CHF, GERD, HTN presents with family and the chief complaint of increased confusion, weakness, lack of appetite, and altered mental status. She was seen and evaluated on 09/27 and admitted until 10/01 for acute kidney injury. She lives at home with her . She is significantly worse today than yesterday. She is a very poor historian and contributes little to the case Related Data Previous Rx's Medication Instructions Recorded amoxicillin 500 mg-potassium 1 tab PO BID #6 tab 09/30/21 clavulanate 125 mg tablet (Augmentin) metoprolol succinate 25 mg 50 mg PO BID #60 tab 09/30/21 tablet,extended release 24 hr multivitamin with folic acid 400 1 tab PO DAILY #30 tab 09/30/21 mcg tablet (Tab-A-Sera) docusate sodium 100 mg tablet 100 mg PO DAILY #60 tab 10/01/21 tramadol 50 mg tablet 50 mg PO Q6H PRN #30 tab 10/01/21 Allergies Allergy/AdvReac Type Severity Reaction Status Date / Time amlodipine [AMLODIPINE] Allergy Mild Verified 07/23/21 13:07 lisinopril [LISINOPRIL] Allergy Mild Verified 07/23/21 13:07 metoclopramide Allergy Mild Verified 07/23/21 13:07 [METOCLOPRAMIDE] Review of Systems Review of Systems ROS Unobtainable: All systems reviewed & are unremarkable except as noted in HPI and below Patient History Medical History (Updated 10/12/21 @ 23:25 by FRANCISCO Leon) Arthritis (~2013) Cholelithiasis (~06/2017) Colon polyps (~2006) Diarrhea Fatty liver (~01/2014) Fibroids Foot fracture, left GERD (gastroesophageal reflux disease) (~01/2014) Hypertension Severe protein-calorie malnutrition ([place]: less than 60% of standard weight) Surgical History History of back surgery History of tonsillectomy and adenoidectomy History of total abdominal hysterectomy and bilateral salpingo-oophorectomy Hx of hernia repair Hx of surgical procedure Family History Father Cancer Mother Hypertension Social History household members: family Smoking Status: Former smoker alcohol intake: never Smoking Status: Former smoker alcohol intake frequency: 0-2 drinks per day Substance Use Type: does not use Exam Narrative Exam Narrative: GENERAL: [80] year old patient appears older than stated age. Thin, weak, clearly unwell HEAD: Atraumatic. Normocephalic. EYES: Pupils equal round and reactive. Extraocular motions intact. No scleral icterus. No injection or drainage. ENT: Dry mucous membranes. Nose without bleeding, purulent drainage. Throat without erythema, tonsillar hypertrophy or exudate. Airway patent. NECK: Trachea midline. Non tender CARDIOVASCULAR: tachycardic but regular rhythm without murmurs, gallops, or rubs. RESPIRATORY: Clear to auscultation. Breath sounds equal bilaterally. No wheezes, rales, or rhonchi. GASTROINTESTINAL: Abdomen soft, non-tender, nondistended. EXTREMITIES: No edema or joint tenderness. BACK: Nontender without deformity or crepitance. No flank tenderness. NEURO: CNII-XII in tact SKIN: Poor skin turgor, No rash or erythema of visible areas Initial Vital Signs Initial Vital Signs: Vital Signs Temperature 97.4 F L 10/12/21 17:19 Pulse Rate 115 H 10/12/21 17:19 Respiratory Rate 24 10/12/21 17:19 Blood Pressure 126/83 10/12/21 17:19 Pulse Oximetry 93 10/12/21 17:19 Course Orders Ordered: ED Orders 10/12/21 20:19 COVID19 -Nasal RAPID/Pre-Proc Stat Acetaminophen (Acetaminophen 325 Mg Tablet) 650 mg PO Q6HR PRN PRN Reason: Fever/Mild Pain (1-3) Enoxaparin Sodium (Enoxaparin 30 Mg/0.3 Ml Syringe) 30 mg SUBCUT DAILY ANTWON Sodium Chloride (Normal Saline 0.45%) 1,000 mls @ 100 mls/hr IV CONT ANTWON Last Admin: 10/13/21 01:10 Dose: 100 mls/hr Documented by: ELY Metoprolol Succinate (Metoprolol Er 25 Mg Tablet) 50 mg PO BID ANTWON Naloxone HCl (Naloxone 0.4 Mg/Ml Vial) 0.2 mg IV Q2MIN PRN PRN Reason: Opiate Reversal Ondansetron HCl (Ondansetron 4 Mg/2 Ml Inj) 4 mg IV Q6HR PRN PRN Reason: Nausea And Vomiting Discontinued Medications Sodium Chloride (Normal Saline 0.9%) 1,156.65 mls @ 385.55 mls/hr 30 ml/kg infuse over 3 hr (1156.65 ml) IV NOW ONE Stop: 10/12/21 22:47 Last Admin: 10/12/21 19:53 Dose: 385.55 mls/hr Documented by: RON Ceftriaxone Sodium 1,000 mg/ (Sodium Chloride) 100 mls @ 200 mls/hr IV NOW ONE Stop: 10/12/21 19:49 Last Admin: 10/12/21 19:53 Dose: 200 mls/hr Documented by: RON Vital Signs Vital signs: Vital Signs - 8 hr 10/12/21 17:19 Temperature 97.4 F L Pulse Rate 115 H Respiratory Rate 24 Blood Pressure 126/83 Pulse Oximetry 93 MDM - Weakness Lab Data Result diagrams: 10/12/21 18:36 10/12/21 18:36 Labs: Lab Results 10/12/21 10/12/21 10/12/21 Range/Units 18:36 18:36 18:36 WBC 7.0 (4.5-11.0) X10^3/uL RBC 2.61 L (4.0-5.2) X10^6/uL Hgb 7.6 L (12.0-16.0) g/dL Hct 23.4 L (36-46) % MCV 89.7 (80-100) fL MCH 29.0 (26-34) PG MCHC 32.4 (30-36) % RDW 23.4 H (11.6-14.8) % Plt Count 210 (150-400) X10^3/uL Neut % (Auto) Not Reportable Lymph % (Auto) Not Reportable Menard % (Auto) Not Reportable Eos % (Auto) Not Reportable Baso % (Auto) Not Reportable Lymph # (Auto) Not Reportable Menard # (Auto) Not Reportable Baso # (Auto) Not Reportable Total Counted 100 Seg Neutrophils % 39.0 (38-70) % Band Neutrophils % 7.0 (3-7) % Lymphocytes % (Manual) 24.0 L (25-45) % Monocytes % (Manual) 9.0 (2-11) % Metamyelocytes % 13.0 H (-0) % Myelocytes % 8.0 H (-0) % Neutrophils # (Manual) 3220 (9728-9242) /uL Nucleated RBCs 3 H ( - 0) #/Diff RBC Morphology See below Poikilocytosis 3+ H Anisocytosis 2+ H Tear Drop Cells 1+ H Ovalocytes 1+ H Acanthocytes (Spur) 2+ H Schistocytes 1+ H Sodium 150 H (137-145) mmol/L Potassium 3.8 (3.4-5.1) mmol/L Chloride 117 H (98-107) mmol/L Carbon Dioxide 17 L (22-32) mmol/L BUN 53 H (7-17) mg/dL Creatinine 1.99 H (0.52-1.04) mg/dL Estimated GFR 25 L (>60) mL/min BUN/Creatinine Ratio 26.6 H (6-22) Glucose 132 H (80-110) mg/dL Lactate 3.7 H (0.7-2.1) mmol/L Calcium 8.8 (8.4-10.2) mg/dL Phosphorus (2.8-4.1) mg/dL Magnesium 2.4 H (1.6-2.3) mg/dL Total Bilirubin 0.7 (0.2-1.3) mg/dL AST 76 H (14-36) IU/L ALT 36 H (<35) IU/L Alkaline Phosphatase 75 (38-126) U/L Total Creatine Kinase 44 (30-135) U/L CK-MB (CK-2) TNP CK-MB (CK-2) Rel Index TNP Troponin I 0.012 (0.01-0.034) ng/mL Total Protein 8.2 (6.3-8.2) g/dL Albumin 3.4 L (3.5-5.0) g/dL Globulin 4.8 H (1.7-4.1) g/dL Albumin/Globulin Ratio 0.7 L (1.0-2.8) Lipase 129 (23-300) U/L Procalcitonin (<0.5) ng/mL TSH (0.47-4.68) uIU/mL SARS-CoV-2 (PCR) (Negative) 10/12/21 10/12/21 10/12/21 Range/Units 18:36 18:36 18:36 WBC (4.5-11.0) X10^3/uL RBC (4.0-5.2) X10^6/uL Hgb (12.0-16.0) g/dL Hct (36-46) % MCV (80-100) fL MCH (26-34) PG MCHC (30-36) % RDW (11.6-14.8) % Plt Count (150-400) X10^3/uL Neut % (Auto) Lymph % (Auto) Menard % (Auto) Eos % (Auto) Baso % (Auto) Lymph # (Auto) Menard # (Auto) Baso # (Auto) Total Counted Seg Neutrophils % (38-70) % Band Neutrophils % (3-7) % Lymphocytes % (Manual) (25-45) % Monocytes % (Manual) (2-11) % Metamyelocytes % (-0) % Myelocytes % (-0) % Neutrophils # (Manual) (4970-7937) /uL Nucleated RBCs ( - 0) #/Diff RBC Morphology Poikilocytosis Anisocytosis Tear Drop Cells Ovalocytes Acanthocytes (Spur) Schistocytes Sodium (137-145) mmol/L Potassium (3.4-5.1) mmol/L Chloride (98-107) mmol/L Carbon Dioxide (22-32) mmol/L BUN (7-17) mg/dL Creatinine (0.52-1.04) mg/dL Estimated GFR (>60) mL/min BUN/Creatinine Ratio (6-22) Glucose (80-110) mg/dL Lactate (0.7-2.1) mmol/L Calcium (8.4-10.2) mg/dL Phosphorus 4.1 (2.8-4.1) mg/dL Magnesium (1.6-2.3) mg/dL Total Bilirubin (0.2-1.3) mg/dL AST (14-36) IU/L ALT (<35) IU/L Alkaline Phosphatase (38-126) U/L Total Creatine Kinase (30-135) U/L CK-MB (CK-2) CK-MB (CK-2) Rel Index Troponin I (0.01-0.034) ng/mL Total Protein (6.3-8.2) g/dL Albumin (3.5-5.0) g/dL Globulin (1.7-4.1) g/dL Albumin/Globulin Ratio (1.0-2.8) Lipase (23-300) U/L Procalcitonin 0.34 (<0.5) ng/mL TSH 3.35 (0.47-4.68) uIU/mL SARS-CoV-2 (PCR) (Negative) 10/12/21 Range/Units 20:19 WBC (4.5-11.0) X10^3/uL RBC (4.0-5.2) X10^6/uL Hgb (12.0-16.0) g/dL Hct (36-46) % MCV (80-100) fL MCH (26-34) PG MCHC (30-36) % RDW (11.6-14.8) % Plt Count (150-400) X10^3/uL Neut % (Auto) Lymph % (Auto) Menard % (Auto) Eos % (Auto) Baso % (Auto) Lymph # (Auto) Menard # (Auto) Baso # (Auto) Total Counted Seg Neutrophils % (38-70) % Band Neutrophils % (3-7) % Lymphocytes % (Manual) (25-45) % Monocytes % (Manual) (2-11) % Metamyelocytes % (-0) % Myelocytes % (-0) % Neutrophils # (Manual) (3532-5221) /uL Nucleated RBCs ( - 0) #/Diff RBC Morphology Poikilocytosis Anisocytosis Tear Drop Cells Ovalocytes Acanthocytes (Spur) Schistocytes Sodium (137-145) mmol/L Potassium (3.4-5.1) mmol/L Chloride (98-107) mmol/L Carbon Dioxide (22-32) mmol/L BUN (7-17) mg/dL Creatinine (0.52-1.04) mg/dL Estimated GFR (>60) mL/min BUN/Creatinine Ratio (6-22) Glucose (80-110) mg/dL Lactate (0.7-2.1) mmol/L Calcium (8.4-10.2) mg/dL Phosphorus (2.8-4.1) mg/dL Magnesium (1.6-2.3) mg/dL Total Bilirubin (0.2-1.3) mg/dL AST (14-36) IU/L ALT (<35) IU/L Alkaline Phosphatase (38-126) U/L Total Creatine Kinase (30-135) U/L CK-MB (CK-2) CK-MB (CK-2) Rel Index Troponin I (0.01-0.034) ng/mL Total Protein (6.3-8.2) g/dL Albumin (3.5-5.0) g/dL Globulin (1.7-4.1) g/dL Albumin/Globulin Ratio (1.0-2.8) Lipase (23-300) U/L Procalcitonin (<0.5) ng/mL TSH (0.47-4.68) uIU/mL SARS-CoV-2 (PCR) Negative (Negative) Imaging Data CT scan - head: Radiologist Impression: [address] [address] [address] Scan Report Signed Patient: Hitchcock MR#: [id number] : 1940 Acct:[id number] Age/Sex: 80 / F Date of Service: 10/12/21 Loc: ED Accession Number: [id number] ?? Procedure: CT head/brain wo con Ordering Provider: Maggy Gunderson D.O. PROCEDURE:? CT HEAD/BRAIN WO CON ? INDICATIONS:? aloc ? TECHNIQUE:? Noncontrast 4.5 mm thick angled axial sections acquired from the foramen magnum to the vertex, with coronal and sagittal reformats.? For radiation dose reduction, the following was used:? automated exposure control, adjustment of mA and/or kV according to patient size.? ? COMPARISON:? [facility], CT, CT HEAD/BRAIN WO CON, 07/13/2021, 17:55. ? FINDINGS:? Image quality:? Mildly degraded by patient motion.? ? CSF spaces:? Basal cisterns are patent.? No extra-axial fluid collections.? The ventricles are symmetric in size and shape.? ? Brain:? No acute intracranial hemorrhage or mass effect.? There is cerebral volume loss for age, with resultant ventricular and sulcal prominence.? There are periventricular and deep white matter chronic small vessel ischemic changes.? There is intracranial internal carotid artery atherosclerosis.? ? Skull and face:? Calvarium and visualized facial bones appear intact, without suspicious lesions.? ? Sinuses:? Visualized sinuses and mastoids are clear.? ? IMPRESSION:? No acute intracranial abnormality.? Chronic microvascular ischemic changes and age related diffuse cerebral volume loss are redemonstrated. ? ? Dictated by: David Read M.D. on 10/12/2021 at 17:51 ? ? Approved by: David Read M.D. on 10/12/2021 at 17:55 ? Chest x-ray: Radiologist Impression: Hitchcock??80??F??1940 ? Allergy/Adv: amlodipine, lisinopril, metoclopramide (More??) Close Head CT (Signed) David Read - 10/12/21 Chest X-Ray (Signed) David Read - 10/12/21 Foot X-Ray (Signed) Trinh,Andre - 10/01/21 Foot X-Ray (Signed) Trinh,Andre - 10/01/21 Renal Ultrasound (Signed) Trinh,Andre - 09/27/[address] (Signed) Trinh,Andre - 09/27/21 Chest X-Ray (Signed) Trinh,Andre - 09/27/[address] (Signed) Mars Jonas - 07/13/[address] (Signed) Ivana Espinoza - 07/13/21 Modified Barium Swallow (Signed) Billy Dyson - 10/13/20 Clavicle X-Ray (Signed) Ivana Espinoza - 09/17/20 Bone Densitometry 01/16/20 DEXA Result 01/16/20 Modified Barium Swallow (Signed) Billy Dyson - 01/02/20 Chest X-Ray (Signed) Kena Mason - 10/03/19 Mammogram Screening (Signed) Bjorn Jean - 04/06/19 Abdomen/Pelvis CT (Signed) Cecil Youngblood - 09/12/18 Hip X-Ray (Signed) Maximilian Zimmreman - 07/22/18 Mammogram Diagnostic (Signed) Christine Deng - 03/27/18 Mammogram Screening (Signed) Bjorn Jean - 03/01/[address] (Signed) Billy Dyson - 12/13/17 Hip X-Ray (Signed) Billy Dyson - 12/13/17 Launch?Image [address] [address] XRay Report Signed Patient: Hitchcock MR#: [id number] : 1940 Acct:[id number] Age/Sex: 80 / F Date of Service: 10/12/21 Loc: ED Accession Number: [id number] ?? Procedure: XR chest 1V Ordering Provider: Maggy Gunderson D.O. PROCEDURE:? XR CHEST 1V ? INDICATIONS:? chest pain ? TECHNIQUE:? One view of the chest was acquired.? ? COMPARISON:? [facility], CR, XR CHEST 1V, 09/27/2021, 13:58. ? FINDINGS:? ? Surgical changes and devices:? None.? ? Lungs and pleura:? Lungs are clear.? No pleural effusions or pneumothorax.? ? Mediastinum:? Mediastinal contours appear normal.? Heart size is normal.? ? Bones and chest wall:? No suspicious bony lesions.? Overlying soft tissues appear unremarkable.? ? IMPRESSION:? No acute cardiopulmonary abnormality. ? ? Dictated by: David Read M.D. on 10/12/2021 at 18:07 ? ? Approved by: David Read M.D. on 10/12/2021 at 18:07 Discharge Plan Departure Patient Disposition: Admitted As Inpatient Clinical Impression: Sepsis, Acute kidney injury, Weakness Admit Date/Time: 10/12/21 20:48 Admit Provider: Geeta Youngblood
[2021-10-12 19:09] LABS: Lactate (Lactic Acid) 3.7 mmol/L (0.7-2.1)
[2021-10-12 19:10] LABS: Alanine Aminotransferase 36 IU/L (<35); Albumin 3.4 g/dL (3.5-5.0); Albumin Globulin Ratio 0.7 (1.0-2.8); Alkaline Phosphatase 75 U/L (38-126); Aspartate Aminotransferase 76 IU/L (14-36); BUN Creatinine Ratio 26.6 (6-22); Bilirubin Total 0.7 mg/dL (0.2-1.3); Blood Urea Nitrogen 53 mg/dL (7-17); Calcium 8.8 mg/dL (8.4-10.2); Carbon Dioxide 17 mmol/L (22-32); Chloride 117 mmol/L (98-107); Creatine Kinase 44 U/L (30-135); Estimated Glomerular Filt Rate 25 mL/min (>60); Globulin 4.8 g/dL (1.7-4.1); Glucose 132 mg/dL (80-110); HEMOLYSIS < 15 (0-50); Hematocrit 23.4 % (36-46); Hemoglobin 7.6 g/dL (12.0-16.0); Lipase 129 U/L (23-300); Magnesium 2.4 mg/dL (1.6-2.3); Mean Corpuscular HGB Conc 32.4 % (30-36); Mean Corpuscular Volume 89.7 fL (80-100); Potassium 3.8 mmol/L (3.4-5.1); Red Blood Cell Count 2.61 X10^6/uL (4.0-5.2); Red Cell Distribution Width 23.4 % (11.6-14.8); Sodium 150 mmol/L (137-145); Total Protein 8.2 g/dL (6.3-8.2)
[2021-10-12 19:13] LABS: Add Manual Diff / Slide Review YES
[2021-10-12 19:21] LABS: Troponin I 0.012 ng/mL (0.01-0.034)
[2021-10-12 19:43] LABS: Neutrophils Absolute Manual 3220 /uL (3000-5900); Nucleated Red Blood Cells 3 #/Diff; Total Cells Counted 100
[2021-10-12 19:44] LABS: Acanthocytes 2+; Anisocytosis 2+; Ovalocytes 1+; Poikilocytosis 3+
[2021-10-12 19:45] LABS: Schistocytes 1+; Tear Drop Cells 1+
[2021-10-12 19:47] LABS: Platelet Count 210 X10^3/uL (150-400)
[2021-10-12] MEDS: SODIUM CHLORIDE 0.9% 385.55 ML IV (19:53)
[2021-10-12] MEDS: cefTRIAXone 1,000 MG in SODIUM CHLORIDE 0.9% 100 ML 200 ML IV (19:53)
[2021-10-12 19:58] LABS: Procalcitonin 0.34 ng/mL (<0.5)
[2021-10-12 20:20] VITALS: PULSE 115; RESP 20; O2SAT 97
[2021-10-12 20:39] LABS: COVID19 -Nasal RAPID Negative (Negative)
[2021-10-12 20:48] LABS: Reflexed Lactate in 2 Hours Y
[2021-10-12 20:51] VITALS: BMI 16.6
[2021-10-12 21:16] LABS: Lactate 2HR (Lactic Acid Rflx) 1.7 mmol/L (0.7-2.1)
[2021-10-12 22:00] VITALS: BP 125/55; PULSE 115; RESP 18; TEMP 37.4; O2SAT 97
[2021-10-12 23:39] LABS: Phosphorous 4.1 mg/dL (2.8-4.1)
[2021-10-13] VITALS (12 sets, daily range): BP systolic 97–123; BP diastolic 33–73; PULSE 56–120; RESP 16–22; TEMP 36.2–37.4; O2SAT 92–100
[2021-10-13 00:10] LABS: Thyroid Stimulating Hormone 3.35 uIU/mL (0.47-4.68)
[2021-10-13] MEDS: SODIUM CHLORIDE 0.45% 1,000 ML 100 ML IV ×2 (01:10→10:58)
--- NOTE | 2021-10-13 01:20 | PC.NURSE ---
Admit/NOC Shift Note- Patient arrived to room via stretcher [facility] ER at 2135. Slider board used to transfer patient to bed. Patient pleasently confused with history of dementia. Admission questions done with aid of past admission records. Patient fell asleep as soon as we got her all situated and manager publishing the bed. IV liner wrapped with kerlex and an bird wrap to help prevent patient from pulling out line. Crow patent and set to gravity to drain. Urine clear and tea colored. Patient tolerating with out issue. Pateints room in view of nurses station for frequent visual checks for safety. Safety measures in place. Bed alarm activated. Call kim ad phone within reach. Will continue to monitor.
[2021-10-13 01:25] LABS: Appearance Urine UA CLEAR; Bilirubin Urine UA NEGATIVE (NEGATIVE); Color Urine UA YELLOW; Glucose Urine UA NEGATIVE (Negative); Ketones Urine UA NEGATIVE (NEGATIVE); Leukocyte Esterase Urine UA NEGATIVE (NEGATIVE); Nitrite Urine UA NEGATIVE (Negative); Occult Blood Urine UA NEGATIVE (Negative); Protein Urine UA TRACE (Negative); Specific Gravity Urine UA 1.015 (1.000-1.035)
[2021-10-13 01:33] LABS: RBC Urine 0-1/HPF (0-5/HPF); WBC Urine 0-1/HPF (0-5/HPF)
[2021-10-13 01:34] LABS: Amorphous Sediment Urine 1+; Calcium Oxalate Crystals Urine Occasional; Hyaline Casts Urine 10-30/LPF; Squamous Epithelial Cell Urine 5-10 /HPF (0-5/HPF)
[2021-10-13 01:35] LABS: Bacteria Urine Few (2-10); Culture Indicated Urine Cult Not Indicated; Mucus Urine 1+ (Negative)
--- NOTE | 2021-10-13 03:35 | PM.HP.1 ---
History of Present Illness History of Present Illness Date Patient Seen: 10/12/21 Time Patient Seen: 22:15 Chief complaint: Fall, weak, dehydration Narrative: Wooten is an 80-year-old female with the history of CHF, essential hypertension and GERD, recently discharged from this facility on October 01 for a fall and overall weakness and acute kidney injury re-presented today ?increased confusion, weakness, lack of appetite and altered mentation. I did not meet the however per the ED provider he stated that she was improved upon discharge and worsened significantly over today. Patient is unable to give me a history although was able to tell me she was in the hospital, could not tell me the date or day. She is being requested for admission due to a SANDY of a creatinine of 1.99 and a lactate of 3.7, and metabolic abnormalities including hypernatremia, hypermagnemesia and elevated liver enzymes. Chest x-ray ordered in the emergency department did not reveal any acute cardiopulmonary abnormalities. CT of the head with and without contrast also was negative for acute intracranial abnormalities however noted chronic microvascular ischemic changes and age-related diffuse cerebral volume loss. Patient is mildly febrile 99.4, blood pressure 125/55, heart rate 115, respiratory rate 18, oxygen saturation of 97% on room air, she weighs 38.5 kg with a BMI of 16.6. She is anemic with a hemoglobin and hematocrit of 7.6 and 23.4 respectively, she has a number of abnormal values on her peripheral smear, sodium is 150, potassium 3.8, chloride 117, bicarb 17, creatinine 1.99 with BUN of 53 and a estimated EGFR of 25, glucose 132, magnesium 2.4, AST 76, ALT 36, albumin 3.4, she procalcitonin is 0.34, TSH is 3.25, UA is negative for UTI, and COVID-19 PCR is negative. Patient History Medical History Arthritis (~2013) Cholelithiasis (~06/2017) Colon polyps (~2006) Diarrhea Fatty liver (~01/2014) Fibroids Foot fracture, left GERD (gastroesophageal reflux disease) (~01/2014) Hypertension Severe protein-calorie malnutrition ([place]: less than 60% of standard weight) Surgical History History of back surgery History of tonsillectomy and adenoidectomy History of total abdominal hysterectomy and bilateral salpingo-oophorectomy Hx of hernia repair Hx of surgical procedure Family & Social History Family History Father Cancer Mother Hypertension Social History: household members family Prior Living Arrangements House Safety & Behavioral: Feels Safe in Current Yes Environment Been Physically Hurt or No Threatened By a Person Suicidal Ideation Description None Suicide Plan Description No Plan Tobacco & Substance use: Smoking Status Former smoker alcohol intake never alcohol intake frequency 0-2 drinks per day Substance Use Type does not use Meds Home Medications and Allergies Home Medications Medication Instructions Recorded Confirmed Type amoxicillin 500 mg-potassium 1 tab PO BID #6 tab 09/30/21 Rx clavulanate 125 mg tablet (Augmentin) metoprolol succinate 25 mg 50 mg PO BID #60 tab 09/30/21 Rx tablet,extended release 24 hr multivitamin with folic acid 400 1 tab PO DAILY #30 tab 09/30/21 Rx mcg tablet (Tab-A-Sera) docusate sodium 100 mg tablet 100 mg PO DAILY #60 tab 10/01/21 Rx tramadol 50 mg tablet 50 mg PO Q6H PRN #30 tab 10/01/21 Rx Allergies Allergy/AdvReac Type Severity Reaction Status Date / Time amlodipine [AMLODIPINE] Allergy Mild Verified 07/23/21 13:07 lisinopril [LISINOPRIL] Allergy Mild Verified 07/23/21 13:07 metoclopramide Allergy Mild Verified 07/23/21 13:07 [METOCLOPRAMIDE] Review of Systems Review of Systems ROS: Yes unobtainable due to mental status Exam Vital Signs (past 8 hours): - 10/12/21 22:00 Temperature 99.4 F Pulse Rate 115 H Respiratory Rate 18 Blood Pressure 125/55 L Pulse Oximetry 97 Oxygen Delivery Method Room Air Oxygen Flow Rate 0 Narrative Exam Narrative: Gen: Alert, oriented, cachectic and emaciated appearing 80y.o. female, pleasantly confused HEENT: normocephalic, atraumatic, conjunctiva clear, sclera non-icteric, oral mucosa pale and dry Neck: supple, full ROM, no JVD, trachea is midline Resp: Lungs CTA, non-labored breathing CV: RRR, no murmur or rubs Abd: soft, non-tender, normoactive BTs Skin: Multiple bruises, thin and friable generally dry and intact Neuro: Alert and oriented x 2. Speech clear and coherent. Extremities: moves all 4 extremities, is ambulatory, negative Wisam?s sign Psyche: Pleasantly confused. Objective Labs Result Diagrams: 10/12/21 18:36 10/12/21 18:36 Labs: Laboratory Results - last 24 hr 10/12/21 10/12/21 10/12/21 18:36 18:36 18:36 WBC 7.0 RBC 2.61 L Hgb 7.6 L Hct 23.4 L MCV 89.7 MCH 29.0 MCHC 32.4 RDW 23.4 H Plt Count 210 Neut % (Auto) Not Reportable Lymph % (Auto) Not Reportable [place] % (Auto) Not Reportable Eos % (Auto) Not Reportable Baso % (Auto) Not Reportable Lymph # (Auto) Not Reportable [place] # (Auto) Not Reportable Baso # (Auto) Not Reportable Total Counted 100 Seg Neutrophils % 39.0 Band Neutrophils % 7.0 Lymphocytes % (Manual) 24.0 L Monocytes % (Manual) 9.0 Metamyelocytes % 13.0 H Myelocytes % 8.0 H Neutrophils # (Manual) 3220 Nucleated RBCs 3 H RBC Morphology See below Poikilocytosis 3+ H Anisocytosis 2+ H Tear Drop Cells 1+ H Ovalocytes 1+ H Acanthocytes (Spur) 2+ H Schistocytes 1+ H Sodium 150 H Potassium 3.8 Chloride 117 H Carbon Dioxide 17 L BUN 53 H Creatinine 1.99 H Estimated GFR 25 L BUN/Creatinine Ratio 26.6 H Glucose 132 H Lactate 3.7 H Calcium 8.8 Phosphorus Magnesium 2.4 H Total Bilirubin 0.7 AST 76 H ALT 36 H Alkaline Phosphatase 75 Total Creatine Kinase 44 CK-MB (CK-2) TNP CK-MB (CK-2) Rel Index TNP Troponin I 0.012 Total Protein 8.2 Albumin 3.4 L Globulin 4.8 H Albumin/Globulin Ratio 0.7 L Lipase 129 Procalcitonin TSH Urine Color Urine Appearance Urine pH Ur Specific [place] Urine Protein Urine Glucose (UA) Urine Ketones Urine Occult Blood Urine Nitrate Urine Bilirubin Urine Urobilinogen Ur Leukocyte Esterase Urine RBC Urine WBC Ur Squamous Epith Cells Calcium Oxalate Crystal Amorphous Sediment Urine Bacteria Hyaline Casts Urine Mucus Ur Culture Indicated? SARS-CoV-2 (PCR) 10/12/21 10/12/21 10/12/21 18:36 18:36 18:36 WBC RBC Hgb Hct MCV MCH MCHC RDW Plt Count Neut % (Auto) Lymph % (Auto) [place] % (Auto) Eos % (Auto) Baso % (Auto) Lymph # (Auto) [place] # (Auto) Baso # (Auto) Total Counted Seg Neutrophils % Band Neutrophils % Lymphocytes % (Manual) Monocytes % (Manual) Metamyelocytes % Myelocytes % Neutrophils # (Manual) Nucleated RBCs RBC Morphology Poikilocytosis Anisocytosis Tear Drop Cells Ovalocytes Acanthocytes (Spur) Schistocytes Sodium Potassium Chloride Carbon Dioxide BUN Creatinine Estimated GFR BUN/Creatinine Ratio Glucose Lactate Calcium Phosphorus 4.1 Magnesium Total Bilirubin AST ALT Alkaline Phosphatase Total Creatine Kinase CK-MB (CK-2) CK-MB (CK-2) Rel Index Troponin I Total Protein Albumin Globulin Albumin/Globulin Ratio Lipase Procalcitonin 0.34 TSH 3.35 Urine Color Urine Appearance Urine pH Ur Specific [place] Urine Protein Urine Glucose (UA) Urine Ketones Urine Occult Blood Urine Nitrate Urine Bilirubin Urine Urobilinogen Ur Leukocyte Esterase Urine RBC Urine WBC Ur Squamous Epith Cells Calcium Oxalate Crystal Amorphous Sediment Urine Bacteria Hyaline Casts Urine Mucus Ur Culture Indicated? SARS-CoV-2 (PCR) 10/12/21 10/12/21 10/13/21 20:19 20:55 01:10 WBC RBC Hgb Hct MCV MCH MCHC RDW Plt Count Neut % (Auto) Lymph % (Auto) [place] % (Auto) Eos % (Auto) Baso % (Auto) Lymph # (Auto) [place] # (Auto) Baso # (Auto) Total Counted Seg Neutrophils % Band Neutrophils % Lymphocytes % (Manual) Monocytes % (Manual) Metamyelocytes % Myelocytes % Neutrophils # (Manual) Nucleated RBCs RBC Morphology Poikilocytosis Anisocytosis Tear Drop Cells Ovalocytes Acanthocytes (Spur) Schistocytes Sodium Potassium Chloride Carbon Dioxide BUN Creatinine Estimated GFR BUN/Creatinine Ratio Glucose Lactate 1.7 Calcium Phosphorus Magnesium Total Bilirubin AST ALT Alkaline Phosphatase Total Creatine Kinase CK-MB (CK-2) CK-MB (CK-2) Rel Index Troponin I Total Protein Albumin Globulin Albumin/Globulin Ratio Lipase Procalcitonin TSH Urine Color Yellow Urine Appearance Clear Urine pH 5.0 Ur Specific [place] 1.015 Urine Protein Trace H Urine Glucose (UA) Negative Urine Ketones Negative Urine Occult Blood Negative Urine Nitrate Negative Urine Bilirubin Negative Urine Urobilinogen 1.0 Ur Leukocyte Esterase Negative Urine RBC 0-1/hpf Urine WBC 0-1/hpf Ur Squamous Epith Cells 5-10 /hpf H Calcium Oxalate Crystal Occasional H Amorphous Sediment 1+ Urine Bacteria Few (2-10) H Hyaline Casts 10-30/lpf Urine Mucus 1+ H Ur Culture Indicated? Cult not indicated SARS-CoV-2 (PCR) Negative Assessment & Plan Assessment & Plan narrative: Wooten is admitted for dehydration and an acute kidney injury 1. Acute on chronic kidney injury, present on admission Creatinine is 1.99 Patient has had a history of hospitalization at [facility] where she had a creatinine of 6.5.? It was believed to be due to dehydration and the patient was seen by Nephrology at that time. Outside nephrology consult notes reviewed. Her renal function did improve with hydration and was encouraged to increase her p.o. fluid intake. 2. Dehydration, acute and present on admission She has elevated levels of sodium, magnesium Have started gentle hydration with 0.45 NS at 100 ml/hour. 3. Severe protein calorie malnutrition with a BMI of 16.6 likely chronic I have ordered a dietary consult Patient was encouraged to have more fluid intake during prior hospitalizations 4. Essential hypertension, currently normotensive She will resume metoprolol succinate 50 mg p.o. b.i.d. if her blood pressure can support taking this. 5. Advanced dementia Patient will likely need joint terminal attack controller care placement Recommend palliative care consult with continued severe malnutrition VTE Prophylaxis: Wells risk score 1.5 [X]Enoxaparin 30 mg subQ once daily, renally dosed Bilateral SCDs Patient is admitted to the inpatient service due to the severity of disease, risks of further disease progression and this stay is expected to exceed 2 midnights. FEN: IV fluids: 0.45 ns at 100 ml/hour, diet: general, labs: CBC, C/BMP, liver enzymes, Mag, PT/INR Consultants None consider hematology consult regarding abnormal smear Dispo: unknown at this time, prior OT evaluation stated she would need 24 hour assistance and recommended SNF/rehab, or LTAC, but patient refused. Code status: DNR/DNI as per prior recent admission [X] I have utilized all available immediate resources to obtain, update, or review of the patient's current medications Time Spent With Patient Critical Care time: I spent a total of [] minutes of critical care time on this patient's care today; this time is exclusive of procedural time. Scores Wells' Criteria for PE Clinical signs and symptoms of DVT: No PE is #1 Dx or equally likely: No Heart rate > 100: No Immobilization at least 3 days or surg in previous 4 weeks: Yes History of PE or DVT: No Hemoptysis: No Malignancy w/Treatment within 6 months or palliative: No Wells' PE Score total: 1.5 Quality VTE Deep Vein Thrombosis/Pulmonary Embolism Present on Admission: No
[2021-10-13 05:17] LABS: Blood Urea Nitrogen 49 mg/dL (7-17); Calcium 8.1 mg/dL (8.4-10.2); Carbon Dioxide 17 mmol/L (22-32); Estimated Glomerular Filt Rate 30 mL/min (>60); Glucose 102 mg/dL (80-110); HEMOLYSIS < 15 (0-50); Magnesium 2.3 mg/dL (1.6-2.3); Potassium 3.9 mmol/L (3.4-5.1); Sodium 149 mmol/L (137-145)
[2021-10-13 05:24] LABS: Mean Corpuscular HGB Conc 31.5 % (30-36); Mean Corpuscular Hemoglobin 29.4 PG (26-34); Mean Corpuscular Volume 93.2 fL (80-100); Platelet Count 165 X10^3/uL (150-400); Red Blood Cell Count 2.31 X10^6/uL (4.0-5.2); Red Cell Distribution Width 20.8 % (11.6-14.8); White Blood Cell Count 7.5 X10^3/uL (4.5-11.0)
[2021-10-13 05:28] LABS: Add Manual Diff / Slide Review YES
[2021-10-13 05:34] LABS: Chloride 123 mmol/L (98-107); Hematocrit 21.5 % (36-46); Hemoglobin 6.8 g/dL (12.0-16.0)
[2021-10-13 07:12] LABS: Anisocytosis 3+; Neutrophils Absolute Manual 3525 /uL (3000-5900); Total Cells Counted 100
--- NOTE | 2021-10-13 08:37 | PC.NURSE ---
Addendum entered by Garrett Pham R.N. 10/13/21 14:22: Pt continues to jose miguel PRBC's transfusion. resting comfortably in bed. Addendum entered by Garrett Pham R.N. 10/13/21 12:44: Blood cultures obtained. Blood transfusion started. Addendum entered by Garrett Pham R.N. 10/13/21 09:49: Spoke with S.O. obtained consent for blood transfusion at 09:07. Original Note: Discussed plan of care and blood transfusion with Dr. Yuan. Dr. Yuan aware of labs. Discussed getting consent. Will call numbers in chart to get telephone consent as Pt isn't able to sign. Pt set up for some b'fast at present.
--- NOTE | 2021-10-13 13:30 | DIET.CONS ---
Dietary Consultation Note Admission Date: 10/12/2021 20:48 Assessment: 80y F c dementia admitted for weakness and dehydration referred to nutrition for malnutrition. Pt presents 20% below UBW with BMI 16.6 (severe for age). Pt has SANDY with signs of dehydration. Ht: 152.4 cm Wt: 38.555 kg BMI: 16.6 UBW: 47.7kg (-20% of UBW) Last BM: 10/13/21 (10/13/21 09:32) MNA: Jerome Score: 13 Diet: 10/13/21 Breakfast Low Sodium Diet (2gm) Diet Modifications: RENAL Nutrition Percent Meal Consumed 25% 10/13/21 09:34 Labs: RBC 2.31 X10^6/uL (4.0-5.2) L 10/13/21 04:30 Hgb 6.8 g/dL (12.0-16.0) L* 10/13/21 04:30 Hct 21.5 % (36-46) L 10/13/21 04:30 Creatinine 1.69 mg/dL (0.52-1.04) H 10/13/21 04:30 Lactate 1.7 mmol/L (0.7-2.1) 10/12/21 20:55 Nutrition Diagnosis: Severe Acute on Chronic Protein Calorie Malnutrition r/t reduced hunger and thirst cues aeb pt with advancing dementia, poor historian, pt 20% below UBW, BMI 16.6, pt appears cachexic per hospitalist report. Interventions: 1. Recc ONS Ensure Original c meals to support malnourished state and hydration status. 2. Recc increased caregivers in home or placement at facility with meal set up, monitoring and frequent reminders for hydration through the day. Pts with dementia do well with beverages placed near them visually as cue. EER: 1500kcals (per BMI 30kcal/kg) ; 38-57g PRO (1.0-1.5g/kg PRO) Monitoring/Evaluations: ONS tolerance, POs, POC Electronically Signed by: Brigid Michael 10/13/21 13:30 Clinical Dietitian [address] [address]
--- NOTE | 2021-10-13 14:44 | P.PN_ITS ---
Subjective Subjective Date Patient Seen: 10/13/21 Interval history: 80 y/o female brought in by family for increasing confusion. Sounds like the patient has had poor appetite and has had confusion for quite some time.. She has sent surely is nonverbal and confused currently. Patient developed low- grade fever to 99.4 earlier today. She is scheduled for blood transfusion this afternoon. Exam Vital Signs (past 8 hours): - 10/13/21 07:00 10/13/21 08:05 10/13/21 08:20 Temperature 99.4 F Pulse Rate 58 L Respiratory Rate 22 Blood Pressure 97/52 L Pulse Oximetry 92 96 92 10/13/21 10:43 10/13/21 12:32 10/13/21 12:50 Temperature 98.6 F 98.4 F Pulse Rate 58 L 90 108 H Respiratory Rate 18 16 Blood Pressure 97/52 L 111/62 109/73 Pulse Oximetry Oxygen Delivery Method Room Air Oxygen Flow Rate 0 Narrative Exam Narrative: Dishelved, ill appearing female confused lying in bed Resp Other: Lungs: clear to auscultation Cardio Other: CV: RRR nl Sl S2 GI Other: Abd: soft/ non tender/ non distended Extrem Other: No [place] Objective Labs Result Diagrams: 10/13/21 04:30 10/13/21 04:30 Labs: Laboratory Results - last 24 hr 10/12/21 10/12/21 10/12/21 18:36 18:36 18:36 WBC 7.0 RBC 2.61 L Hgb 7.6 L Hct 23.4 L MCV 89.7 MCH 29.0 MCHC 32.4 RDW 23.4 H Plt Count 210 Neut % (Auto) Not Reportable Lymph % (Auto) Not Reportable [place] % (Auto) Not Reportable Eos % (Auto) Not Reportable Baso % (Auto) Not Reportable Lymph # (Auto) Not Reportable [place] # (Auto) Not Reportable Baso # (Auto) Not Reportable Total Counted 100 Seg Neutrophils % 39.0 Band Neutrophils % 7.0 Lymphocytes % (Manual) 24.0 L Atypical Lymphs % Monocytes % (Manual) 9.0 Metamyelocytes % 13.0 H Myelocytes % 8.0 H Neutrophils # (Manual) 3220 Nucleated RBCs 3 H RBC Morphology See below Poikilocytosis 3+ H Anisocytosis 2+ H Tear Drop Cells 1+ H Ovalocytes 1+ H Acanthocytes (Spur) 2+ H Schistocytes 1+ H Sodium 150 H Potassium 3.8 Chloride 117 H Carbon Dioxide 17 L BUN 53 H Creatinine 1.99 H Estimated GFR 25 L BUN/Creatinine Ratio 26.6 H Glucose 132 H Lactate 3.7 H Calcium 8.8 Phosphorus Magnesium 2.4 H Total Bilirubin 0.7 AST 76 H ALT 36 H Alkaline Phosphatase 75 Total Creatine Kinase 44 CK-MB (CK-2) TNP CK-MB (CK-2) Rel Index TNP Troponin I 0.012 Total Protein 8.2 Albumin 3.4 L Globulin 4.8 H Albumin/Globulin Ratio 0.7 L Lipase 129 Procalcitonin TSH Urine Color Urine Appearance Urine pH Ur Specific [place] Urine Protein Urine Glucose (UA) Urine Ketones Urine Occult Blood Urine Nitrate Urine Bilirubin Urine Urobilinogen Ur Leukocyte Esterase Urine RBC Urine WBC Ur Squamous Epith Cells Calcium Oxalate Crystal Amorphous Sediment Urine Bacteria Hyaline Casts Urine Mucus Ur Culture Indicated? SARS-CoV-2 (PCR) Blood Type Antibody Screen Crossmatch 10/12/21 10/12/21 10/12/21 18:36 18:36 18:36 WBC RBC Hgb Hct MCV MCH MCHC RDW Plt Count Neut % (Auto) Lymph % (Auto) [place] % (Auto) Eos % (Auto) Baso % (Auto) Lymph # (Auto) [place] # (Auto) Baso # (Auto) Total Counted Seg Neutrophils % Band Neutrophils % Lymphocytes % (Manual) Atypical Lymphs % Monocytes % (Manual) Metamyelocytes % Myelocytes % Neutrophils # (Manual) Nucleated RBCs RBC Morphology Poikilocytosis Anisocytosis Tear Drop Cells Ovalocytes Acanthocytes (Spur) Schistocytes Sodium Potassium Chloride Carbon Dioxide BUN Creatinine Estimated GFR BUN/Creatinine Ratio Glucose Lactate Calcium Phosphorus 4.1 Magnesium Total Bilirubin AST ALT Alkaline Phosphatase Total Creatine Kinase CK-MB (CK-2) CK-MB (CK-2) Rel Index Troponin I Total Protein Albumin Globulin Albumin/Globulin Ratio Lipase Procalcitonin 0.34 TSH 3.35 Urine Color Urine Appearance Urine pH Ur Specific [place] Urine Protein Urine Glucose (UA) Urine Ketones Urine Occult Blood Urine Nitrate Urine Bilirubin Urine Urobilinogen Ur Leukocyte Esterase Urine RBC Urine WBC Ur Squamous Epith Cells Calcium Oxalate Crystal Amorphous Sediment Urine Bacteria Hyaline Casts Urine Mucus Ur Culture Indicated? SARS-CoV-2 (PCR) Blood Type Antibody Screen Crossmatch 10/12/21 10/12/21 10/13/21 20:19 20:55 01:10 WBC RBC Hgb Hct MCV MCH MCHC RDW Plt Count Neut % (Auto) Lymph % (Auto) [place] % (Auto) Eos % (Auto) Baso % (Auto) Lymph # (Auto) [place] # (Auto) Baso # (Auto) Total Counted Seg Neutrophils % Band Neutrophils % Lymphocytes % (Manual) Atypical Lymphs % Monocytes % (Manual) Metamyelocytes % Myelocytes % Neutrophils # (Manual) Nucleated RBCs RBC Morphology Poikilocytosis Anisocytosis Tear Drop Cells Ovalocytes Acanthocytes (Spur) Schistocytes Sodium Potassium Chloride Carbon Dioxide BUN Creatinine Estimated GFR BUN/Creatinine Ratio Glucose Lactate 1.7 Calcium Phosphorus Magnesium Total Bilirubin AST ALT Alkaline Phosphatase Total Creatine Kinase CK-MB (CK-2) CK-MB (CK-2) Rel Index Troponin I Total Protein Albumin Globulin Albumin/Globulin Ratio Lipase Procalcitonin TSH Urine Color Yellow Urine Appearance Clear Urine pH 5.0 Ur Specific [place] 1.015 Urine Protein Trace H Urine Glucose (UA) Negative Urine Ketones Negative Urine Occult Blood Negative Urine Nitrate Negative Urine Bilirubin Negative Urine Urobilinogen 1.0 Ur Leukocyte Esterase Negative Urine RBC 0-1/hpf Urine WBC 0-1/hpf Ur Squamous Epith Cells 5-10 /hpf H Calcium Oxalate Crystal Occasional H Amorphous Sediment 1+ Urine Bacteria Few (2-10) H Hyaline Casts 10-30/lpf Urine Mucus 1+ H Ur Culture Indicated? Cult not indicated SARS-CoV-2 (PCR) Negative Blood Type Antibody Screen Crossmatch 10/13/21 10/13/21 10/13/21 04:30 04:30 05:56 WBC 7.5 RBC 2.31 L Hgb 6.8 L* Hct 21.5 L MCV 93.2 D MCH 29.4 MCHC 31.5 RDW 20.8 H Plt Count 165 Neut % (Auto) Not Reportable Lymph % (Auto) Not Reportable [place] % (Auto) Not Reportable Eos % (Auto) Not Reportable Baso % (Auto) Not Reportable Lymph # (Auto) Not Reportable [place] # (Auto) Not Reportable Baso # (Auto) Not Reportable Total Counted 100 Seg Neutrophils % 46.0 Band Neutrophils % 1.0 L Lymphocytes % (Manual) 36.0 Atypical Lymphs % 16.0 H Monocytes % (Manual) 1.0 L Metamyelocytes % Myelocytes % Neutrophils # (Manual) 3525 Nucleated RBCs RBC Morphology Not Reportable Poikilocytosis Anisocytosis 3+ H Tear Drop Cells Ovalocytes Acanthocytes (Spur) Schistocytes Sodium 149 H Potassium 3.9 Chloride 123 H* Carbon Dioxide 17 L BUN 49 H Creatinine 1.69 H Estimated GFR 30 L BUN/Creatinine Ratio 29.0 H Glucose 102 Lactate Calcium 8.1 L Phosphorus Magnesium 2.3 Total Bilirubin AST ALT Alkaline Phosphatase Total Creatine Kinase CK-MB (CK-2) CK-MB (CK-2) Rel Index Troponin I Total Protein Albumin Globulin Albumin/Globulin Ratio Lipase Procalcitonin TSH Urine Color Urine Appearance Urine pH Ur Specific [place] Urine Protein Urine Glucose (UA) Urine Ketones Urine Occult Blood Urine Nitrate Urine Bilirubin Urine Urobilinogen Ur Leukocyte Esterase Urine RBC Urine WBC Ur Squamous Epith Cells Calcium Oxalate Crystal Amorphous Sediment Urine Bacteria Hyaline Casts Urine Mucus Ur Culture Indicated? SARS-CoV-2 (PCR) Blood Type A Positive Antibody Screen Negative Crossmatch See Detail [facility] Medical History Arthritis (~2013) Cholelithiasis (~06/2017) Colon polyps (~2006) Diarrhea Fatty liver (~01/2014) Fibroids Foot fracture, left GERD (gastroesophageal reflux disease) (~01/2014) Hypertension Severe protein-calorie malnutrition ([place]: less than 60% of standard weight) Surgical History History of back surgery History of tonsillectomy and adenoidectomy History of total abdominal hysterectomy and bilateral salpingo-oophorectomy Hx of hernia repair Hx of surgical procedure Family History Father Cancer Mother Hypertension Social History household members: family Smoking Status: Former smoker alcohol intake: never Assessment & Plan Assessment & Plan narrative: ?Acute on chronic kidney injury, present on admission * Creatinine is 1.99 * Patient has had a history of hospitalization at [facility] where she had a creatinine of 6.5.? It was believed to be due to dehydration and the patient was seen by Nephrology at that time. Outside nephrology consult notes reviewed. Her renal function did improve with hydration and was encouraged to increase her p.o. fluid intake. * Continue IV hydration, avoid nephrotoxic agents, follow-up electrolytes tomorrow 2. Dehydration, acute and present on admission * She has elevated levels of sodium, magnesium * Have started gentle hydration, will change fluids to lactated Ringer's given her renal insufficiency 3. Severe protein calorie malnutrition with a BMI of 16.6 likely chronic * I have ordered a dietary consult * Patient was encouraged to have more fluid intake during prior hospitalizations 4. Essential hypertension, currently normotensive * She will resume metoprolol succinate 50 mg p.o. b.i.d. if her blood pressure can support taking this. * Patient was relatively hypotensive today, hold the metoprolol 5. 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 Fever/Hypotension, elevated lactate-doubt Sepsis/ suspect blood pressure related to prior BP meds but will follow * Ongoing concern for infection * Urine Culture not indicated * Blood culture obtained * Resume Ceftriaxone for now * Time Spent With Patient Critical Care time: I spent a total of [] minutes of critical care time on this patient's care today; this time is exclusive of procedural time. Quality VTE Deep Vein Thrombosis/Pulmonary Embolism Present on Admission: No
[2021-10-13] MEDS: DEXTROSE 5%-LACTATED RINGERS 1,000 ML 100 ML IV (16:14)
[2021-10-13 17:19] LABS: Hematocrit 25.9 % (36-46); Hemoglobin 8.6 g/dL (12.0-16.0)
[2021-10-13] MEDS: cefTRIAXone 2,000 MG in SODIUM CHLORIDE 0.9% 100 ML 200 ML IV (17:31)
[2021-10-13 17:32] LABS: BUN Creatinine Ratio 30.6 (6-22); Blood Urea Nitrogen 38 mg/dL (7-17); Carbon Dioxide 17 mmol/L (22-32); Chloride 117 mmol/L (98-107); Estimated Glomerular Filt Rate 44 mL/min (>60); Glucose 114 mg/dL (80-110); HEMOLYSIS 21 (0-50); Potassium 3.5 mmol/L (3.4-5.1); Sodium 144 mmol/L (137-145)
[2021-10-14] VITALS (15 sets, daily range): BP systolic 88–137; BP diastolic 43–81; PULSE 66–147; RESP 14–25; TEMP 36.4–37.2; O2SAT 94–100
[2021-10-14 08:31] LABS: Add Manual Diff / Slide Review YES; Blood Urea Nitrogen 29 mg/dL (7-17); Calcium 8.2 mg/dL (8.4-10.2); Carbon Dioxide 21 mmol/L (22-32); Chloride 120 mmol/L (98-107); Estimated Glomerular Filt Rate 57 mL/min (>60); Glucose 95 mg/dL (80-110); Hematocrit 31.2 % (36-46); Hemoglobin 10.6 g/dL (12.0-16.0); Magnesium 1.9 mg/dL (1.6-2.3); Mean Corpuscular HGB Conc 34.1 % (30-36); Mean Corpuscular Volume 87.8 fL (80-100); Platelet Count 128 X10^3/uL (150-400); Potassium 4.6 mmol/L (3.4-5.1); Red Blood Cell Count 3.55 X10^6/uL (4.0-5.2); Sodium 147 mmol/L (137-145); White Blood Cell Count 7.3 X10^3/uL (4.5-11.0)
[2021-10-14 08:32] LABS: HEMOLYSIS 116 (0-50)
[2021-10-14 09:05] LABS: Anisocytosis 2+; Hypochromasia 1+; Neutrophils Absolute Manual 3577 /uL (3000-5900); Nucleated Red Blood Cells 8 #/Diff; Total Cells Counted 100
[2021-10-14 09:06] LABS: Poikilocytosis 1+
[2021-10-14] MEDS: ENOXAPARIN 30 MG/0.3 ML SYRINGE SUBCUT (09:31)
--- NOTE | 2021-10-14 10:21 | DI.RAD.S_ITS ---
PROCEDURE: XR CHEST 1V INDICATIONS: HR 130 TECHNIQUE: One view of the chest was acquired. COMPARISON: [facility], CR, XR CHEST 1V, 10/12/2021, 17:44. FINDINGS: Surgical changes and devices: None. Lungs and pleura: Lungs are clear. No pleural effusions or pneumothorax. Mediastinum: Mediastinal contours appear normal. Heart size is normal. Bones and chest wall: No suspicious bony lesions. Overlying soft tissues appear unremarkable. IMPRESSION: No acute cardiopulmonary pathology. Dictated by: Fritz Wallace M.D. on 10/14/2021 at 10:56 Approved by: Fritz Wallace M.D. on 10/14/2021 at 10:56
--- NOTE | 2021-10-14 10:46 | OT.IPNOTE ---
Per nursing hold OT eval as pt is tachy/A-fib and hr in 130's. To check on pt tomorrow to see if pt is appropriate
--- NOTE | 2021-10-14 10:48 | PT-IP ANOTE ---
Addendum entered and electronically signed by Sofia Patel, PT 10/14/21 15:50: HR remains elevated. PT to follow up or d/c orders if pt still not appropriate for therapy. Original Note: H&H improved to 10.6/31.2 s/p transfusion. Spoke with RN who notes pt now tachycardic with sustained HR in the 130's. Not appropriate for PT evaluation at this time. Will continue to follow.
--- NOTE | 2021-10-14 10:54 | PC.NURSE ---
patient's HR was elevated, 120-130's, notified provider. stat EKG, Chest xray and BNP ordered. will give IV lasix per orders.
[2021-10-14 11:01] LABS: NT-proBNP (BNP-Adult 18+) 1570 pg/mL (<450)
[2021-10-14] MEDS: FUROSEMIDE 20 MG/2 ML VIAL IV (11:04)
--- NOTE | 2021-10-14 13:34 | CM.IDA ---
Addendum entered by Adia Arias 10/14/21 14:14: DCP Assessment Patient is DNR, DPOA is patient's spouse Thony. BREAD WRAPPER calls patient's spouse Thony (Ph.# [phone]) who was present with patient's son Raji (Ph. # [phone]). plans to return to visit patient at 1600 today and at 1000 tomorrow and would like to meet with DCP and hospitalist regarding patient. endorses he would like to meet with PCP tomorrow and son would like to be present in person or by phone. Son would like update from DCP, RN, or Hospitalist tomorrow regardless to remain informed. Spouse endorses concern for patient's inability to ambulate, and being bedridden and requiring assistance for all ADLs. It is spouses preference that patient go to SNF to gain back her strength. Son speaks with BREAD WRAPPER and is understanding that patient may not be able to recover ADLs and may be in need of Hospice. BREAD WRAPPER informs son that the attending provider is continuing to evaluate patient to assess patient's needs. Plan: DCP to meet with spouse tomorrow AM, f/u with son, POC pending further evaluations. SNF vs. Hospice ELEANOR Remy Original Note: DCP Assessment Patient is 80 y/o female who presents to due to concern for increased weakness and confusion. Patient has hx of Dementia CHF, essential hypertension, & GERD. Patient's PCP is Dr. Cordova, insurance: [facility] Patient had recent d/c on 10/01/21, SNF placement was attempted but patient d/c'd with [facility] with referral for RN, PT, HH aide, OT and BREAD WRAPPER. Patient resides at home with . BREAD WRAPPER calls phone numbers listed for and [facility] requesting return call. Per SETTLEMENT PROCESSOR, visited patient earlier and may return later today or tomorrow. Patient has been unable to be evaluated for OT and PT at this time due to patient's high BP. Per RN, patient swallowed a sponge earlier and attempts to eat non food items. Patient aspirated on lunch and is currently NPO. Patient awaiting swallow study and content writer evaluation. Dr. Yuan is recommending a Palliative care consultation due to patient's continued severe malnutrition. Plan: f/u with PT, OT, Palliative care, content writer consult as well as swallow study. Possible home with hospice of SNF rehab referral. ELEANOR Cheek Discharge Planning/Care Management CM Discharge Assessment Start: 10/14/21 13:26 Freq: Status: Active Protocol: Document 10/14/21 13:26 LN (Rec: 10/14/21 13:34 LN [id number]) Discharge Planning Assessment Assigned Air Pollution Inspector ELEANOR Cheek DPOA/Assigned Designee Name Thony Corea - Spouse ([phone]) Advance Directives? Yes Advance Directives on File No History Provided By Medical Record Has Patient been admitted in last 30 Yes days? Prior Living Arrangements House Household Members spouse Type of transporation used prior to Relies on Others admit Independent with ADL's No Is patient alert and oriented? No: A/O to self Needs Assistance With Meal Prep,Managing Medications ,Home Chores / Shopping Caregiver for Another No DME Already Rented / Owned Wheelchair,FWW / Walker Review Status In Process Please Provide Date Initial DC 10/14/21 Assessment Was Performed Next Review Type Continued Stay Review
[2021-10-14] MEDS: LABETALOL 20 MG/4 ML SYRINGE 10 MG IV ×2 (14:28→16:52)
[2021-10-14] MEDS: MORPHINE 2 MG/ML INJ IV (16:27)
--- NOTE | 2021-10-14 16:56 | P.PN_ITS ---
Subjective Subjective Date Patient Seen: 10/14/21 Interval history: 80-year-old female admitted to the hospital with a history of heart failure hypertension GERD who was discharged October 01 after a fall. Patient at that time was found to have acute kidney injury, she presented to the hospital with increasing confusion weakness lack of appetite and altered mental status. Patient is quite confused and unable to provide any history, she has no complaints of pain per se although it is difficult to tell. She has been tachycardic today. Patient received 2 units of packed RBCs yesterday in addition to IV hydration and developed tachycardia, with an elevated proBNP, she received 1 dose of Lasix with good response. Patient had a regular tray for lunch and had large volume aspiration, she is currently on treatment with ceftriaxone for presumed urinary tract infection Exam Vital Signs (past 8 hours): - 10/14/21 09:31 10/14/21 14:28 10/14/21 16:32 Pulse Rate 147 H 143 H Blood Pressure 137/81 123/57 L Pulse Oximetry 98 Oxygen Delivery Method Room Air Oxygen Flow Rate 0 Narrative Exam Narrative: Confused elderly female lying in bed Const Other: Patient is very cachectic Resp Other: Lungs decreased breath sounds but clear to auscultation Cardio Other: Cardiac exam: Tachycardic regular rate and rhythm normal S1-S2 GI Other: Abdomen: Soft nontender nondistended Extrem Other: Extremities: No edema Objective Labs Result Diagrams: 10/14/21 08:05 10/14/21 08:05 Labs: Laboratory Results - last 24 hr 10/13/21 10/13/21 10/13/21 05:56 17:02 17:02 WBC RBC Hgb 8.6 L Hct 25.9 L MCV MCH MCHC RDW Plt Count Neut % (Auto) Lymph % (Auto) Crisp % (Auto) Eos % (Auto) Baso % (Auto) Lymph # (Auto) Crisp # (Auto) Baso # (Auto) Total Counted Seg Neutrophils % Band Neutrophils % Lymphocytes % (Manual) Atypical Lymphs % Monocytes % (Manual) Eosinophils % (Manual) Metamyelocytes % Myelocytes % Neutrophils # (Manual) Nucleated RBCs RBC Morphology Hypochromasia Poikilocytosis Anisocytosis Sodium 144 Potassium 3.5 Chloride 117 H Carbon Dioxide 17 L BUN 38 H Creatinine 1.24 H Estimated GFR 44 L BUN/Creatinine Ratio 30.6 H Glucose 114 H Calcium 8.0 L Magnesium NT-Pro-B Natriuret Pep Blood Type A Positive Antibody Screen Negative Crossmatch See Detail 10/14/21 10/14/21 10/14/21 08:05 08:05 08:05 WBC 7.3 RBC 3.55 L Hgb 10.6 L Hct 31.2 L MCV 87.8 D MCH 30.0 MCHC 34.1 RDW 17.0 H Plt Count 128 L Neut % (Auto) Not Reportable Lymph % (Auto) Not Reportable Crisp % (Auto) Not Reportable Eos % (Auto) Not Reportable Baso % (Auto) Not Reportable Lymph # (Auto) Not Reportable Crisp # (Auto) Not Reportable Baso # (Auto) Not Reportable Total Counted 100 Seg Neutrophils % 30.0 L Band Neutrophils % 19.0 H Lymphocytes % (Manual) 27.0 Atypical Lymphs % 6.0 H Monocytes % (Manual) 4.0 Eosinophils % (Manual) 3.0 Metamyelocytes % 8.0 H Myelocytes % 3.0 H Neutrophils # (Manual) 3577 Nucleated RBCs 8 H RBC Morphology Not Reportable Hypochromasia 1+ H Poikilocytosis 1+ H D Anisocytosis 2+ H Sodium 147 H Potassium 4.6 Chloride 120 H Carbon Dioxide 21 L BUN 29 H Creatinine 1.00 Estimated GFR 57 L BUN/Creatinine Ratio 29.0 H Glucose 95 Calcium 8.2 L Magnesium 1.9 NT-Pro-B Natriuret Pep 1570 H Blood Type Antibody Screen Crossmatch [facility] Medical History Arthritis (~2013) Cholelithiasis (~06/2017) Colon polyps (~2006) Diarrhea Fatty liver (~01/2014) Fibroids Foot fracture, left GERD (gastroesophageal reflux disease) (~01/2014) Hypertension Severe protein-calorie malnutrition ([place]: less than 60% of standard weight) Surgical History History of back surgery History of tonsillectomy and adenoidectomy History of total abdominal hysterectomy and bilateral salpingo-oophorectomy Hx of hernia repair Hx of surgical procedure Family History Father Cancer Mother Hypertension Social History household members: spouse Smoking Status: Former smoker alcohol intake: never Assessment & Plan Assessment & Plan narrative: 80-year-old female, with advanced dementia, failure to thrive, presented to the hospital with acute renal failure, 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, hypertension, and severe protein calorie malnutrition * Patient received 2 units of packed RBCs for anemia, hemoglobin 6.8, after 2 units of blood her hemoglobin is now 10 * Patient received IV hydration and developed tachycardia, elevated proBNP, concern for heart failure * She received 20 mg of IV Lasix with good urine output, however she remains tachycardic * Patient also aspirated today, will continue antibiotics * Patient was given IV morphine given concerns regarding pain, however no real response to her tachycardia * Patient is not hypoxic Her acute kidney injury * Improved with IV hydration and blood transfusion * BUN and creatinine have now normalized * However proBNP elevated, concern for acute heart failure * Will obtain 2D echo, hold further Lasix Hypertension * IV labetalol Aspiration pneumonitis/pneumonia * Patient frankly aspirated lunch today * After suctioning no evidence of hypoxia * Will repeat chest x-ray * Continue antibiotic * NPO now * Swallow eval with speech 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 * Leukemia lymphoma panel sent * Awaiting further studies * Will continue supportive therapy with transfusion Dementia * Fairly advanced * Will attempt PT and OT * Patient appears to be fairly debilitated * Once a CML diagnosis has been confirmed will discuss treatment options up to and including hospice given patient's severe protein calorie malnutrition, dementia, and overall failure to thrive * Probable severe protein calorie malnutrition * BMI 16 point * Patient aspirated * Will be made NPO, await speech evaluation Time Spent With Patient Critical Care time: I spent a total of [] minutes of critical care time on this patient's care today; this time is exclusive of procedural time. Quality VTE Deep Vein Thrombosis/Pulmonary Embolism Present on Admission: No
--- NOTE | 2021-10-14 17:07 | DI.CT.S_ITS ---
PROCEDURE: CT CHEST ABD PEL W CON INDICATIONS: new diagnosis of CML TECHNIQUE: After the administration of intravenous contrast, 5 mm thick sections acquired from the lung apices to the symphysis. 2.5 mm thick coronal and sagittal reformats were acquired. Additional 7 mm thick coronal maximum intensity projection (MIP) reformats acquired through the lungs. Optional 10-minute delayed imaging may be performed from the kidneys to the bladder. For radiation dose reduction, the following was used: automated exposure control, adjustment of mA and/or kV according to patient size. COMPARISON: None. FINDINGS: Chest: Cardiovascular: Heart size is normal. No evidence of pulmonary embolism, aortic aneurysm or dissection. Lungs and pleural spaces: Benign appearing 5 mm left upper lobe pulmonary nodule noted on image 5/49 Lymph nodes: No mediastinal, hilar or axillary adenopathy. Mediastinum: Unremarkable. Small hiatal hernia noted. Thyroid within normal limits. Chest Wall and Bones: Unremarkable. No acute fracture. Abdomen and Pelvis: Liver: Normal in size and attenuation. No contour deformity present. Biliary system: No calcified cholelithiasis or pericholecystic inflammation. No intra or extrahepatic bile duct dilatation. Pancreas: Unremarkable without mass or inflammation evident. Spleen: Normal in size and density. Adrenals: Low-density lesion involve the left adrenal gland measures 2.7 by 1.4 cm. A small 7 mm similar low-density nodule noted in the right Reproductive system: Unremarkable as visualized. Urinary system: Normal renal size and attenuation. No renal calculi, hydronephrosis, or solid mass present. Urinary bladder decompressed with Crow catheter. Gastrointestinal system: The bowel is unremarkable with no evidence of bowel obstruction or inflammation. The stomach appears unremarkable. No findings to suggest acute appendicitis. Multiple diverticula arise from the sigmoid colon without evidence of diverticulitis. Lymph nodes: No mesenteric or retroperitoneal adenopathy. Peritoneal spaces: No free air. No free fluid. surgical clips noted in the left pelvic sidewall Vasculature: Aortic atherosclerotic vascular calcification noted without evidence of aneurysm. There is nonenhancement of both external iliac and common femoral veins with slight edema around the right common femoral vein. Additionally severe atherosclerotic stenosis noted in the left common femoral artery Abdominal wall: Left lower quadrant small herniorrhaphy noted. No recurrent or residual hernia. There is a small amount of air within the left lower quadrant anterior abdominal wall subcutaneous tissue may reflect recent subcutaneous injection Musculoskeletal: Normal bone mineralization. Degenerative disc disease and arthropathy noted in lower lumbar spine. No acute fractures. IMPRESSION: 1. Non enhancement of both common femoral and iliac veins as well as edema around the right common femoral vein raises the possibility of bilateral deep venous thrombosis/possible thrombophlebitis. Consideration would be artifact related to bolus timing. Consider follow-up duplex venous ultrasound. 2. 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 3. Incidental 5-6 mm left upper lobe nodule. Consider six-month follow-up to assess stability. 4. Low-density bilateral adrenal nodules, left greater than right. Consider follow-up adrenal protocol CT or MR Approved by: Andre Trinh M.D. on 10/14/2021 at 17:14
[2021-10-14] MEDS: cefTRIAXone 2,000 MG in SODIUM CHLORIDE 0.9% 100 ML 200 ML IV (17:44)
--- NOTE | 2021-10-14 19:14 | DI.US.S_ITS ---
PROCEDURE: US PERIPH VENOUS LOW EXTREM BI INDICATIONS: BILATERAL DVT ON CT TECHNIQUE: Real-time imaging, as well as color and pulse Doppler interrogation, were performed of the deep veins of both legs from the inguinal ligament to the popliteal fossa. COMPARISON: [facility], CT, CT CHEST ABD PEL W CON, 10/14/2021, 17:22. FINDINGS: Right: Occlusive thrombus in the GSV, CFV, profundal, SFV, and popliteal veins. Left: Occlusive thrombus in the GSV, CFV, profundal, SFV, and popliteal veins. IMPRESSION: Positive exam. Bilateral extensive DVT in both legs. Please see separately dictated recent CT. Comment: Findings were discussed with Taniya patient's nurse at the time of dictation. Dictated by: Satish Mcginnis M.D. on 10/14/2021 at 21:50 Approved by: Satish Mcginnis M.D. on 10/14/2021 at 21:57
[2021-10-14 19:39] LABS: Procalcitonin 0.51 ng/mL (<0.5)
[2021-10-14 20:07] LABS: D Dimer 2826 ng/mL (<230)
--- NOTE | 2021-10-14 20:23 | PC.NURSE ---
Notified FRANCISCO [place] Pt has been HR 120's from previous shift, BP97/46. BP94/48 and VS is in computer, D-Dimer was 2826, RR has been 24 to upper 20's, holds breath for less than 10sec occasionally. was instructed to not to give PRN IV cardiac medication for now, will continue to monitor.
--- NOTE | 2021-10-14 21:08 | PM.CALLCOV.1 ---
Call Coverage Note Note Date of Patient Contact: 10/14/21 Time of Patient Contact: 21:08 Narrative of Care Provided: Patient reported to have an elevated HR of 120s, tachypnic. Patient seen and examined. Ordered for a D-dimer, apparently had been ordered and was processing, is greater than 2800. She was ordered for a bilateral doppler and preliminary she has DVTs in both legs. Lovenox prophylaxis dose has been increased to 1 mg/kg bid starting tonight. She has just normalized her creatinine today, hold off on doing a PE study with contrast. Still awaiting results of leukemia/lymphoma marker workup.
[2021-10-14] MEDS: ENOXAPARIN 40 MG/0.4 ML SYRINGE SUBCUT (22:31)
[2021-10-14] MEDS: LACTATED RINGERS 500 ML 1000 ML IV (23:24)
[2021-10-14] MEDS: MAGNESIUM SULFATE 2 GM/50 ML PIGGYBACK IV (23:39)
[2021-10-15] VITALS (11 sets, daily range): BP systolic 104–119; BP diastolic 53–68; PULSE 116–127; RESP 18–24; TEMP 36.6–37.7; O2SAT 95–98
[2021-10-15 07:00] LABS: Hematocrit 30.1 % (36-46); Hemoglobin 10.3 g/dL (12.0-16.0); Mean Corpuscular HGB Conc 34.2 % (30-36); Mean Corpuscular Hemoglobin 30.1 PG (26-34); Platelet Count 81 X10^3/uL (150-400); Red Blood Cell Count 3.41 X10^6/uL (4.0-5.2); Red Cell Distribution Width 17.3 % (11.6-14.8); White Blood Cell Count 6.3 X10^3/uL (4.5-11.0)
[2021-10-15 07:02] LABS: Add Manual Diff / Slide Review YES
[2021-10-15 07:11] LABS: BUN Creatinine Ratio 22.9 (6-22); Blood Urea Nitrogen 25 mg/dL (7-17); Calcium 8.3 mg/dL (8.4-10.2); Carbon Dioxide 21 mmol/L (22-32); Chloride 119 mmol/L (98-107); Estimated Glomerular Filt Rate 51 mL/min (>60); Glucose 91 mg/dL (80-110); HEMOLYSIS 33 (0-50); Magnesium 2.9 mg/dL (1.6-2.3); Potassium 3.9 mmol/L (3.4-5.1); Sodium 149 mmol/L (137-145)
--- NOTE | 2021-10-15 07:22 | DI.ECHO.S_ITS ---
The study quality was technically difficult. The ejection fraction is estimated to be 65-70%. Diastolic function was not assessed. The right ventricle grossly appears normal in size with probable normal systolic function. No obvious valvular abnormalities however limited visualization and interrogation. Unable to estimate PASP. Procedure: A two-dimensional transthoracic echocardiogram with color flow and Doppler was performed. The study quality was technically difficult. There is no prior echocardiogram noted for this patient. Left Ventricle: The left ventricle is normal in size. The left ventricle is not well visualized. Left ventricular systolic function is normal. The ejection fraction is estimated to be 65-70%. Regional wall motion abnormalities cannot be excluded due to limited visualization. Diastolic function was not assessed. Right Ventricle: The right ventricle grossly appears normal in size with probable normal systolic function. Atria: The left atrium grossly appears normal in size. The right atrium grossly appears normal in size. The interatrial septum grossly appears intact with no obvious evidence for an atrial septal defect. Mitral Valve: There is mild mitral annular calcification. There is no mitral regurgitation noted. Aortic Valve: There is mild aortic valve sclerosis. The aortic valve opens well. No aortic regurgitation is present. Tricuspid Valve: The tricuspid valve is not well visualized, but is grossly normal. No tricuspid regurgitation. Pulmonic Valve: The pulmonic valve is not well visualized. There is no pulmonic valvular regurgitation. Great Vessels: The aortic root is not well visualized. The ascending aorta could not be visualized. The IVC is of normal diameter and collapses greater than 50% with a sniff. This suggests a low right atrial pressure of 3 mm Hg. Pericardium/ Pleura There is no pericardial effusion. There is no pleural effusion. MMode/2D Measurements & Calculations LVOT diam: 1.9 cm Doppler Measurements & Calculations Ao V2 max: 187.0 cm/sec Ao V2 mean: 130.0 cm/sec Ao max P.0 mmHg Ao mean P.0 mmHg Ao V2 VTI: 26.7 cm Reading Physician:08:36 AM
[2021-10-15 07:39] LABS: Neutrophils Absolute Manual 3024 /uL (3000-5900); Nucleated Red Blood Cells 5 #/Diff; Total Cells Counted 100
[2021-10-15 07:40] LABS: Anisocytosis 2+; Hypochromasia 1+; Poikilocytosis 1+
[2021-10-15] MEDS: ENOXAPARIN 40 MG/0.4 ML SYRINGE SUBCUT (08:16)
--- NOTE | 2021-10-15 10:20 | OT.IPNOTE ---
Per Dr. Yuan hold OT eval today as pt has bilateral DVT and has now been started on Lovenox. Check on pt tomorrow for OT eval.
--- NOTE | 2021-10-15 11:29 | PT-IP ANOTE ---
EMR reviewed and pt has bilateral extensive DVT on LE. PT eval hold for today. Pt just started with anticoagulant meds. will f/u.
--- NOTE | 2021-10-15 12:12 | CM.DPNOTE ---
DCP Note Lengthy conversation w/patient's spouse Thony and son Raji, by phone Discussed short term and intermission coordinator care options. Spouse Thony is a retired automation application engineer Spouse confirms that patient has been declining at home and spouse requests DNR; in addition, spouse considering Hospice care because she (patient) wouldn't want to live like this, would not want to have any heroic measures if something happens ...son Raji agrees Suggested home w hospice vs facility placement w/hospice; spouse does not anticipate he can afford facility placement at this time and will plan to discuss bringing patient home, w/family's help, w/hospice services Requested [facility] provide an info visit for this family today Updated Dr Yuan, she will plan to review plan of care w/spouse and family, by phone, this afternoon when spouse returns to bedside. Plan: Likely discharge home w/hospice services, plan of care still unfolding as patient remains quite ill, info visit from [facility] pending, faxed clinical for their review this morning ELEANOR Echevarria
--- NOTE | 2021-10-15 14:40 | P.PN_ITS ---
Subjective Subjective Date Patient Seen: 10/15/21 Interval history: 80-year-old female admitted to the hospital with weakness, anemia, failure to thrive. She was diagnosed with extensive bilateral DVTs. He was placed on Lovenox 1 milligram/kilogram. Unfortunately she has developed thrombocytopenia since that time. She was also noted to be hypotensive. She was given a bolus of LR. Today she is awake and alert, she does report some pain but is nonspecific. She remains tachycardic with a low-grade fever. Exam Vital Signs (past 8 hours): - 10/15/21 08:17 10/15/21 08:27 10/15/21 10:30 Temperature 99.8 F H Pulse Rate 127 H Respiratory Rate 18 Blood Pressure 108/64 Pulse Oximetry 96 96 97 Oxygen Delivery Method Room Air Oxygen Flow Rate 2 Narrative Exam Narrative: Pleasantly confused elderly female sitting in bed eating lunch Resp Other: Lungs decreased breath sounds but clear Cardio Other: Cardiac exam: Tachycardic regular rate and rhythm normal S1-S2 GI Other: Abdomen is soft and nontender Extrem Other: Right lower extremity with 1+ edema Objective Labs Result Diagrams: 10/15/21 06:30 10/15/21 06:30 Labs: Laboratory Results - last 24 hr 10/14/21 10/14/21 10/15/21 19:04 19:04 06:30 WBC 6.3 RBC 3.41 L Hgb 10.3 L Hct 30.1 L MCV 88.0 MCH 30.1 MCHC 34.2 RDW 17.3 H Plt Count 81 L Neut % (Auto) Not Reportable Lymph % (Auto) Not Reportable [place] % (Auto) Not Reportable Eos % (Auto) Not Reportable Baso % (Auto) Not Reportable Lymph # (Auto) Not Reportable [place] # (Auto) Not Reportable Baso # (Auto) Not Reportable Total Counted 100 Seg Neutrophils % 34.0 L Band Neutrophils % 14.0 H Lymphocytes % (Manual) 35.0 Atypical Lymphs % 8.0 H Monocytes % (Manual) 3.0 Eosinophils % (Manual) 2.0 Metamyelocytes % 3.0 H Myelocytes % 1.0 H Neutrophils # (Manual) 3024 Nucleated RBCs 5 H RBC Morphology Not Reportable Hypochromasia 1+ H Poikilocytosis 1+ H Anisocytosis 2+ H D-Dimer 2826 H Sodium Potassium Chloride Carbon Dioxide BUN Creatinine Estimated GFR BUN/Creatinine Ratio Glucose Calcium Magnesium Procalcitonin 0.51 H 10/15/21 06:30 WBC RBC Hgb Hct MCV MCH MCHC RDW Plt Count Neut % (Auto) Lymph % (Auto) [place] % (Auto) Eos % (Auto) Baso % (Auto) Lymph # (Auto) [place] # (Auto) Baso # (Auto) Total Counted Seg Neutrophils % Band Neutrophils % Lymphocytes % (Manual) Atypical Lymphs % Monocytes % (Manual) Eosinophils % (Manual) Metamyelocytes % Myelocytes % Neutrophils # (Manual) Nucleated RBCs RBC Morphology Hypochromasia Poikilocytosis Anisocytosis D-Dimer Sodium 149 H Potassium 3.9 Chloride 119 H Carbon Dioxide 21 L BUN 25 H Creatinine 1.09 H Estimated GFR 51 L BUN/Creatinine Ratio 22.9 H Glucose 91 Calcium 8.3 L Magnesium 2.9 H Procalcitonin PFSH Medical History Arthritis (~2013) Cholelithiasis (~06/2017) Colon polyps (~2006) Diarrhea Fatty liver (~01/2014) Fibroids Foot fracture, left GERD (gastroesophageal reflux disease) (~01/2014) Hypertension Severe protein-calorie malnutrition (Giron: less than 60% of standard weight) Surgical History History of back surgery History of tonsillectomy and adenoidectomy History of total abdominal hysterectomy and bilateral salpingo-oophorectomy Hx of hernia repair Hx of surgical procedure Family History Father Cancer Mother Hypertension Social History household members: spouse Smoking Status: Former smoker alcohol intake: never Assessment & Plan Assessment & Plan narrative: 80-year-old female, with advanced dementia, failure to thrive, presented to the hospital with acute renal failure, 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 Results of which are pending. Family coming this afternoon to discuss ongoing therapy versus end of life care ( hospice) * Patient received 2 units of packed RBCs for anemia, hemoglobin 6.8, after 2 units of blood her hemoglobin is now 10 * Patient received IV hydration and developed tachycardia, elevated proBNP, concern for heart failure, hypotensive last night and given fluid again * She received 20 mg of IV Lasix with good urine output, however she remains tachycardic Possible aspiration pneumonia * Patient had a witnessed aspiration event, will continue antibiotic * Speech consult obtained, she is now on a pureed diet which she appears to be tolerating * = * Acute kidney injury * Improved with IV hydration and blood transfusion * BUN and creatinine have now normalized * However proBNP elevated, concern for acute heart failure * Will obtain 2D echo, hold further Lasix, echo pending Hypertension * Will resume metoprolol given her persistent tachycardia * Aspiration pneumonitis/pneumonia 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 Quality VTE Deep Vein Thrombosis/Pulmonary Embolism Present on Admission: No
[2021-10-15] MEDS: cefTRIAXone 2,000 MG in SODIUM CHLORIDE 0.9% 100 ML 200 ML IV (15:59)
[2021-10-15] MEDS: METOPROLOL ER 25 MG TABLET PO (15:59)
[2021-10-15 16:08] LABS: Hematocrit 29.8 % (36-46); Hemoglobin 9.9 g/dL (12.0-16.0); Mean Corpuscular HGB Conc 33.3 % (30-36); Mean Corpuscular Hemoglobin 29.9 PG (26-34); Mean Corpuscular Volume 89.9 fL (80-100); Platelet Count 59 X10^3/uL (150-400); Red Blood Cell Count 3.31 X10^6/uL (4.0-5.2); Red Cell Distribution Width 17.1 % (11.6-14.8); White Blood Cell Count 5.6 X10^3/uL (4.5-11.0)
[2021-10-15 16:10] LABS: Add Manual Diff / Slide Review YES
[2021-10-15 16:54] LABS: Neutrophils Absolute Manual 3192 /uL (3000-5900); Nucleated Red Blood Cells 3 #/Diff; Total Cells Counted 100
[2021-10-15 16:56] LABS: Anisocytosis 2+; Hypochromasia 1+; Poikilocytosis 1+
[2021-10-15 16:57] LABS: Schistocytes 1+
--- NOTE | 2021-10-15 18:05 | ST.IPCSEOM ---
Visit Care Team Role Provider Type Ron Cordova MD Primary Care Provider Physician Specialty: Internal Medicine Address: [address] [place] [address], [address], [place], [address] Email: [email or web address] Marshall DO Emergency Provider Physician Referring Provider Specialty: Emergency Medicine Address: [address] [place] [address], [id number] Email: [email or web address] [email or web address] Leon Admit Provider Physician Attending Provider Specialty: Internal Medicine Address: [address] [place] [address], [id number] Email: [email or web address] Current Diagnoses Acute kidney failure, unspecified (10/12/21) Past Medical History (Last Reviewed 10/13/21 @ 03:49 by FRANCISCO Leon) Arthritis (Medical ~2013) multi sites Cholelithiasis (Medical ~06/2017) Colon polyps (Medical ~2006) Diarrhea (Medical) Fatty liver (Medical ~01/2014) Fibroids (Medical) fibroid mass off ureter Foot fracture, left (Medical) GERD (gastroesophageal reflux disease) (Medical ~01/2014) History of back surgery (Medical) History of tonsillectomy and adenoidectomy (Medical) History of total abdominal hysterectomy and bilateral salpingo-oophorectomy (Medical) Hx of hernia repair (Medical) also had fibroid mass off ureter w/ ureter implant Hx of surgical procedure (Medical) fibroid mass off ureter w/ ureter implant and subsequent hernia repair Hypertension (Medical) Severe protein-calorie malnutrition (Giron: less than 60% of standard weight) (Medical) Speech-Language Pathology Swallow Evaluation FIELD CONSULTANT Clinical Swallow Evaluation Start: 10/15/21 09:28 Freq: Status: Active Protocol: Document 10/15/21 16:43 LNK (Rec: 10/15/21 18:05 REKHAK [id number]) Clinical Swallow Evaluation Session Time Visit Start Time 08:30 Visit Stop Time 09:00 Total Visit Minutes 30 Referral Reason for Referral aspirated yesterday, needed suction per nursing Setting Assessment Location Acute Care Visit Type Note Type Initial evaluation Next Note Type Next Note Type Re-evaluation Patient Information Identification Type Name,ID Card History 80-year-old female admitted to the hospital with weakness, anemia, failure to thrive. She was diagnosed with extensive bilateral DVTs. Patient had a witnessed aspiration event yesterday increasing potential for aspiration pneumonia. ST order for swallow evaluation. Pt reported to have advanced dementia Subjective Observations Pt was in her room in bed. Repositioned pt for assessment . Ptt's voice was slurred and had a cul-de-sac resonance. intelligibility ~75-80%. Reported by Patient Other Symptoms Choking,Coughing,Difficulty swallowing liquids,Difficulty swallowing pills,Difficulty swallowing solids,Drooling, History of aspiration or pneumonia,Weight loss Current Diet Nothing by mouth Baseline Feeding Method Needs some assistance Objective Assessment Mental Status Responsive,Cooperative, Confused,Impulsive Dentition Missing teeth Lip Function Mild impairment Pucker Reduced strength Tongue Function Severe impairment Observations of Hard/Soft Palate Reduced strength/ROM of soft palate elevation Comment Pt presented with significant oral motor dysfunction. She has several missing teeth. She was unable to open her mouth more than 1 inch, demonstrating reduced ROM and strength. When provided with trials, pt had difficulty keeping liquids and solids in her mouth, indicating overall weakness. Pt's speech was dysarthric and presented with a col-de-sac resonance. She was unable to stick out, lateralize or lift/lower tip of tongue. She stated her tongue won't move. She was able to chew an ice chip. Nursing stated that her speech/voice was very different and normal yesterday. She could not orally control a bolus trial of water. She grabbed the glass to drink 2-3 sips and aspirated. Food and Liquid Trials Position During Assessment Upright (90 degrees) Liquids Trialed Ice chips,Thin,[place],Honey Solids Trialed Puree Administration Type Tea spoon,Cup consecutive sips Oral Phase Comments see comment above Pharyngeal Impairment Within functional limits Pharyngeal Phase Comments Hyolaryngeal elevation appeared to be reduced in elevation. There did not appear to be any hyoid movement. Based on the limitations of the pt's tongue , the pt would have significant difficulty controlling thin liquids. [place] and honey thick liquds were given by spoonsful to the pt. She demonstrated wet voicing with NTL. With HTL, she did not present with wet vocal quality. Trial puree did not produce wet voicing. Will monitor pt for tolerance , aspiration PNA, etc. MBSS may be indicated, if pt can cooperate and tolerate the procedure. Comment Pt had difficulty with following directions Findings Swallowing Function Pharyngeal phase dysphagia Severity of Swallow Impairment Moderately-severely impaired Contributing Factors to Swallow Reduced alertness or attention Impairment ,Difficulty following directions,Reduced oral strength/coordination/ sensation,Mastication inefficiency,Impaired oral- pharyngeal transport,Impaired velopharyngeal closure/ coordination,Reduced laryngeal excursion Prognosis Guarded Based on Cognitive status,Age,History of aspiration/aspiration pneumonia,Comorbidities Impact on Safety and Functioning Risk for aspiration,Risk for inadequate nutrition/hydration Recommendations Swallowing Treatment Yes Frequency MBSS if pt able to tolerate and can be cooperative Recommended Solids Puree Recommended Liquids Honey Safety Precautions/Swallowing Supervision needed for all Recommendations meals,1 to 1 close supervision ,To be fed only by trained staff/family,Feed only when alert,Reduce distractions, Remain upright (90 degrees) during all oral intake,Needs verbal cues to use recommended strategies,Upright position at least 30 minutes after meals,Small bites and sips when eating,Slow rate; swallow between bites,No straw, Multiple swallows,1 to 1 feeding assistance,Family assistance/supervision,Strict oral care after intake,Check for pocketing Medication Recommendations Crushed in Carrier Discharge Recommendations long-term facility,correction care facility,Home with Hospice Goals Long-term Goals Pt will safely tolerate the least restrictive diet to meet nutritional and hydration needs.
[2021-10-16] VITALS (13 sets, daily range): BP systolic 107–123; BP diastolic 61–75; PULSE 104–121; RESP 17–20; TEMP 36.4–36.9; O2SAT 93–98
[2021-10-16 06:55] LABS: Alanine Aminotransferase 18 IU/L (<35); Albumin 2.7 g/dL (3.5-5.0); Albumin Globulin Ratio 0.7 (1.0-2.8); Alkaline Phosphatase 59 U/L (38-126); Aspartate Aminotransferase 37 IU/L (14-36); BUN Creatinine Ratio 21.6 (6-22); Bilirubin Total 0.8 mg/dL (0.2-1.3); Blood Urea Nitrogen 21 mg/dL (7-17); Calcium 8.4 mg/dL (8.4-10.2); Carbon Dioxide 23 mmol/L (22-32); Chloride 121 mmol/L (98-107); Estimated Glomerular Filt Rate 59 mL/min (>60); Glucose 100 mg/dL (80-110); HEMOLYSIS < 15 (0-50); Hematocrit 29.3 % (36-46); Hemoglobin 9.9 g/dL (12.0-16.0); Mean Corpuscular HGB Conc 33.8 % (30-36); Mean Corpuscular Hemoglobin 30.1 PG (26-34); Mean Corpuscular Volume 89.1 fL (80-100); Platelet Count 62 X10^3/uL (150-400); Potassium 3.5 mmol/L (3.4-5.1); Red Blood Cell Count 3.29 X10^6/uL (4.0-5.2); Sodium 151 mmol/L (137-145); Total Protein 6.7 g/dL (6.3-8.2)
[2021-10-16 07:02] LABS: NT-proBNP (BNP-Adult 18+) 579 pg/mL (<450)
[2021-10-16 07:20] LABS: Add Manual Diff / Slide Review YES
[2021-10-16 07:31] LABS: Neutrophils Absolute Manual 2550 /uL (3000-5900); Nucleated Red Blood Cells 1 #/Diff; Total Cells Counted 100
[2021-10-16 07:33] LABS: Anisocytosis 3+
[2021-10-16 07:34] LABS: Hypochromasia 1+; Poikilocytosis 1+; Schistocytes 1+
[2021-10-16 07:36] LABS: Platelet Estimate Decreased on smear
[2021-10-16] MEDS: POTASSIUM CHLORIDE IN WATER 10 MEQ/100 ML PIGGYBACK 100 MEQ IV ×2 (10:10→11:53)
[2021-10-16] MEDS: METOPROLOL ER 25 MG TABLET PO ×2 (10:10→22:08)
--- NOTE | 2021-10-16 10:37 | DIET.CONS ---
Dietary Consultation Note Admission Date: 10/12/2021 20:48 Assessment: RD follow-up regarding PCM. PO remains <50%. No new wts to evaluate. GFR much improved at 59 ml/min. Ht: 152.4 cm Wt: 38.555 kg BMI: 16.6 Last BM: 10/15/21 (10/15/21 19:00) MNA: Jerome Score: 16 Diet: 10/14/21 13:18 NPO Diet Diet Modifications: NPO Type: Strict 10/15/21 Lunch Dysphagia Diet Diet Modifications: 1:1 assist see aspiration precautions Liquid consistency: Honey Consistency Food texture: Dysphagia Pureed Labs: RBC 3.29 X10^6/uL (4.0-5.2) L 10/16/21 06:20 Hgb 9.9 g/dL (12.0-16.0) L 10/16/21 06:20 Hct 29.3 % (36-46) L 10/16/21 06:20 Creatinine 0.97 mg/dL (0.52-1.04) 10/16/21 06:20 Lactate 1.7 mmol/L (0.7-2.1) 10/12/21 20:55 NT-Pro-B Natriuret Pep 579 pg/mL (<450) H 10/16/21 06:20 Nutrition Diagnosis: Severe Acute on Chronic Protein Calorie Malnutrition r/t reduced hunger and thirst cues aeb pt with advancing dementia, poor historian, pt 20% below UBW, BMI 16.6, pt appears cachexic per hospitalist report. Interventions: 1. Recc ONS Ensure Original c meals to support malnourished state and hydration status (added to diet order and confirmed with kitchen) 2. Recc increased caregivers in home or placement at facility with meal set up, monitoring and frequent reminders for hydration through the day. Pts with dementia do well with beverages placed near them visually as cue. 3. New weight please EER: 1500kcals (per BMI 30kcal/kg) ; 38-57g PRO (1.0-1.5g/kg PRO) Electronically Signed by: Deana Orellana 10/16/21 10:37 Clinical Dietitian [address] [address]
--- NOTE | 2021-10-16 12:43 | PT-IP ANOTE ---
per rounds meeting: PT eval on hold today. Pt is possibly going on hospice care. will f/u.
--- NOTE | 2021-10-16 13:21 | SLP.IPNOTE ---
Pt on hold today. Pt is possibly going on hospice care. Nursing reported that the pt ate 23 tsp of pudding this morning. No choking observed.
--- NOTE | 2021-10-16 14:55 | OT.IPNOTE ---
Pt on HOLD today per report on hospital rounds. Pt to possibly to be placed on hospice, to check on pt again tomorrow for OT eval.
--- NOTE | 2021-10-16 15:05 | OT.IPNOTE ---
Spoke to hospitalist on clarification for HOLD today. Dr. Castellanos states she is medically appropriate to be seen today however that tomorrow would also be appropriate to see pt for eval as still waiting on a platelet lab result.
[2021-10-16] MEDS: cefTRIAXone 2,000 MG in SODIUM CHLORIDE 0.9% 100 ML 200 ML IV (16:48)
--- NOTE | 2021-10-16 17:08 | PT-IP ANOTE ---
DEBONING TEAM LEADER informed PT that rifle case repairer is inquiring regarding pt's mobility. This PT talked with rifle case repairer Sangita and informed her that Dr. Castellanos stated that pt will be on hold for PT eval today during rounds meeting and pt will possibly go on hospice care. also informed that pt was just admitted earlier of this month and this PT also evaluated pt at that time and pt was max Ax 2 and has difficulty following directions due to dementia dx as well as frequent refusals to do PT. Pt will require LTC placement from prior admission's PT eval . corporate training manager stated that family is leaning more towards SNF rehab and to have PT eval assess. Needs clarification from Dr. Castellanos regarding PT hold for today if rifle case repairer want PT eval today. rifle case repairer attempted to get a hold of Dr. castellanos but unsuccessful. rifle case repairer agreed to attempt tomorrow and will discuss situation further during tomorrows round meeting. After PT talked with rifle case repairer. OT informed PT that she talked to Dr. Castellanos and stated that pt is medically appropriate to be seen for PT eval but also stated that tomorrow will be more appropriate due to pending platelet count result. Will f/u tomorrow.
--- NOTE | 2021-10-16 18:51 | P.PN_ITS ---
Subjective Subjective Date Patient Seen: 10/16/21 Time Patient Seen: 18:51 Interval history: 80-year-old female admitted to the hospital with weakness, anemia, failure to thrive.? She was diagnosed with extensive bilateral DVTs.? He was placed on Lovenox 1 milligram/kilogram.? Unfortunately she has developed thrombocytopenia since that time and lovenox is held pending heparin antibody. Currently awaiting results prior to goals of care discussions. Exam Vital Signs (past 8 hours): - 10/16/21 13:36 Pulse Rate 111 H Blood Pressure 120/67 Oxygen Delivery Method Room Air Oxygen Flow Rate 0 Narrative Exam Narrative: GEN: Pleasantly confused elderly female sitting in bed in no acute distress Resp Other: Lungs decreased breath sounds but clear Cardio Other: Cardiac exam:? RRR normal S1-S2 GI Other: Abdomen is soft and nontender Extrem Other: no edema or joint effusions Objective Labs Result Diagrams: 10/16/21 06:20 10/16/21 06:20 Labs: Laboratory Results - last 24 hr 10/16/21 10/16/21 06:20 06:20 WBC 5.0 RBC 3.29 L Hgb 9.9 L Hct 29.3 L MCV 89.1 MCH 30.1 MCHC 33.8 RDW 17.0 H Plt Count 62 L Neut % (Auto) Not Reportable Lymph % (Auto) Not Reportable [place] % (Auto) Not Reportable Eos % (Auto) Not Reportable Baso % (Auto) Not Reportable Lymph # (Auto) Not Reportable [place] # (Auto) Not Reportable Baso # (Auto) Not Reportable Total Counted 100 Seg Neutrophils % 43.0 Band Neutrophils % 8.0 H Lymphocytes % (Manual) 28.0 Atypical Lymphs % 4.0 H Monocytes % (Manual) 3.0 Eosinophils % (Manual) 3.0 Basophils % (Manual) 2.0 H Metamyelocytes % 4.0 H Myelocytes % 5.0 H Neutrophils # (Manual) 2550 L Nucleated RBCs 1 H Platelet Estimate Decreased on smear RBC Morphology See below Hypochromasia 1+ H Poikilocytosis 1+ H Anisocytosis 3+ H Schistocytes 1+ H Sodium 151 H Potassium 3.5 Chloride 121 H Carbon Dioxide 23 BUN 21 H Creatinine 0.97 Estimated GFR 59 L BUN/Creatinine Ratio 21.6 Glucose 100 Calcium 8.4 Total Bilirubin 0.8 AST 37 H ALT 18 Alkaline Phosphatase 59 NT-Pro-B Natriuret Pep 579 H Total Protein 6.7 Albumin 2.7 L Globulin 4.0 Albumin/Globulin Ratio 0.7 L PFSH Medical History Arthritis (~2013) Cholelithiasis (~06/2017) Colon polyps (~2006) Diarrhea Fatty liver (~01/2014) Fibroids Foot fracture, left GERD (gastroesophageal reflux disease) (~01/2014) Hypertension Severe protein-calorie malnutrition ([place]iron: less than 60% of standard weight) Surgical History History of back surgery History of tonsillectomy and adenoidectomy History of total abdominal hysterectomy and bilateral salpingo-oophorectomy Hx of hernia repair Hx of surgical procedure Family History Father Cancer Mother Hypertension Social History household members: spouse Smoking Status: Former smoker alcohol intake: never Assessment & Plan Assessment & Plan narrative: 80-year-old female, with advanced dementia, failure to thrive, presented to the hospital with acute renal failure, 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 Results of which are pending. * Patient received 2 units of packed RBCs for anemia, hemoglobin 6.8, after 2 units of blood her hemoglobin is now 10 Aspiration pneumonia or pneumonitis * Patient had a witnessed aspiration event, will continue antibiotic * Speech consult obtained, she is now on a pureed diet which she appears to be tolerating Acute kidney injury * Improved with IV hydration and blood transfusion * BUN and creatinine have now normalized * However proBNP elevated, concern for acute heart failure * Will obtain 2D echo, hold further Lasix, echo pending Hypertension * Will resume metoprolol given her persistent tachycardia 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 * Plans underway to have a conversation with her family this evening regarding goals of care Dementia * Fairly advanced * Will attempt PT and OT Patient appears to be fairly debilitated Probable severe protein calorie malnutrition * BMI 16 point * Diet poor speech therapy Time Spent With Patient Critical Care time: I spent a total of [] minutes of critical care time on this patient's care today; this time is exclusive of procedural time. Quality VTE Deep Vein Thrombosis/Pulmonary Embolism Present on Admission: No
[2021-10-17] VITALS (10 sets, daily range): BP systolic 95–143; BP diastolic 41–75; PULSE 84–100; RESP 17–19; TEMP 36.5–36.8; O2SAT 94–98
--- NOTE | 2021-10-17 07:47 | CM.DPNOTE ---
DCP Note [facility] provided info visit yesterday, spouse appreciative. [facility] can start care w/patient next Tuesday in the home if needed. Met w/patient's spouse ;discussed DC options. Encouraged spouse to discuss taking patient home w/hospice and potentially in home care givers w/family, spouse agreed. Provided Senior Resource Guide At this time, spouse is concerned he cannot pay for memory care or SHELTER (respite) w/hospice and patient is not a good candidate for SNF d/t her advanced dementia and limiting insurance- [facility] (no [facility]). Family conference set for today at 1100 w/spouse and son Raji to review DCP options once again, decision needed in order for this team to begin planning and coordination of plan- likely home w/family and Hospice services, in home care givers would be very helpful JW
[2021-10-17] MEDS: ACETAMINOPHEN 325 MG TABLET 975 MG PO (08:57)
[2021-10-17] MEDS: METOPROLOL ER 25 MG TABLET PO ×2 (08:58→20:48)
[2021-10-17 09:17] LABS: Hematocrit 29.1 % (36-46); Hemoglobin 9.7 g/dL (12.0-16.0); Mean Corpuscular HGB Conc 33.4 % (30-36); Mean Corpuscular Hemoglobin 29.6 PG (26-34); Mean Corpuscular Volume 88.8 fL (80-100); Red Blood Cell Count 3.28 X10^6/uL (4.0-5.2); Red Cell Distribution Width 17.3 % (11.6-14.8); White Blood Cell Count 4.6 X10^3/uL (4.5-11.0)
[2021-10-17 09:20] LABS: BUN Creatinine Ratio 22.8 (6-22); Blood Urea Nitrogen 18 mg/dL (7-17); Calcium 8.5 mg/dL (8.4-10.2); Carbon Dioxide 23 mmol/L (22-32); Chloride 121 mmol/L (98-107); Estimated Glomerular Filt Rate > 60 mL/min (>60); Glucose 106 mg/dL (80-110); HEMOLYSIS < 15 (0-50); Potassium 3.2 mmol/L (3.4-5.1); Sodium 147 mmol/L (137-145)
[2021-10-17 09:22] LABS: Add Manual Diff / Slide Review YES
[2021-10-17 09:57] LABS: Neutrophils Absolute Manual 1932 /uL (3000-5900); Total Cells Counted 100
[2021-10-17 10:04] LABS: Anisocytosis 2+; Schistocytes 1+
[2021-10-17 10:05] LABS: Hypochromasia 1+; Poikilocytosis 1+
[2021-10-17 10:06] LABS: Toxic Vacuolation Present
[2021-10-17 10:07] LABS: Platelet Count 75 X10^3/uL (150-400)
[2021-10-17] MEDS: RIVAROXABAN 10 MG TABLET 15 MG PO ×2 (11:34→17:29)
--- NOTE | 2021-10-17 11:55 | PT.IIE ---
Current Diagnoses Acute kidney failure, unspecified (10/12/21) Medical History (Last Reviewed 10/13/21 @ 03:49 by FRANCISCO Leon) Arthritis (~2013) Cholelithiasis (~06/2017) Colon polyps (~2006) Diarrhea Fatty liver (~01/2014) Fibroids Foot fracture, left GERD (gastroesophageal reflux disease) (~01/2014) Hypertension Severe protein-calorie malnutrition (Giron: less than 60% of standard weight) Physical Therapy Inpatient Evaluation/Re-Eval M1 PT/OT-IP Prior Functional Status Start: 10/14/21 08:31 Freq: NEEDED Status: Active Protocol: Document 10/17/21 11:55 AB (Rec: 10/17/21 14:01 AB [id number]) Medical Review Prior Functional Status Medical History Reviewed Yes Communication pt with confusion ; unable to provide PLOF and home set up Mobility and Gait per EMR from last hospitalization: pt is modified independent with ambulation without AD but usually carries and cane with her Social History Household Members spouse Living Arrangements House Number of Floors (Floors) Two Floors Number of Stairs To Enter/Railing? 3 steps to enter without rails ( pt usually uses a SPC) Home Equipment Front Wheel Walker,Straight Cane,Manual Wheelchair Additional Social History Comment spouse is limited with assistance that he can provide due to his own medical issues M2 PT-IP Current Condition Start: 10/14/21 08:31 Freq: NEEDED Status: Active Protocol: Document 10/17/21 11:55 AB (Rec: 10/17/21 14:01 AB [id number]) Physical Therapy Current Condition Current Condition Evaluation Date 10/17/21 Treatment Diagnosis sepsis; dementia; adult failure to thrive; difficulty in walking Onset Date 10/12/21 M3 PT-IP Subjective Start: 10/14/21 08:31 Freq: NEEDED Status: Active Protocol: Document 10/17/21 11:55 AB (Rec: 10/17/21 14:01 AB [email or web address]) Subjective Physical Therapy Visit Type Type Initial Evaluation Visit Start Time 11:55 Visit Stop Time 12:20 Total Visit Minutes 25 Number of VICE ADMIRAL Visits 0 Physical Therapy Visit Comments Patient Comments agreed to get up M4 PT-IP Mobility and Gait Start: 10/14/21 08:31 Freq: NEEDED Status: Active Protocol: Document 10/17/21 11:55 AB (Rec: 04/23/22 14:01 [email or web address]) PT-Bed Mobility Assessment Rolling Level of Assist Maximal Assistance Supine to Sit Supine to Sit Head of Bed Elevated,Bedrails Scooting Scooting to Edge of Bed Maximum Assistance PT-Transfer Assessment Sit to and From Stand Sit to and from Stand Maximum Assistance,2 Person Assistance,Use of Upper Extremities Equipment Transfer Assistive Device Front Wheeled Walker Orthotic/Prosthetic Devices or Brace: No Transfers Transfer Destination Chair Transfer Technique Stand Pivot Transfer Ability Level of Assist Maximum Assistance,2 Person Assistance,Use of Upper Extremities Comments Mobility Comments completed supine to sit max A and max cues. able to sit on EOB CGA. max A for scooting to EOB. completed sit to stand max A x 1-2 and max cues but with increase hand tremors and posterior trunk leaning in standing. instructed pt to sit back on EOB max A for controlled descent. educated pt on use of FWW during standing and transfers. completed sit to stand again max A x 2 and cues and stand pivot transfer using FWW max A x 2 and max cues with increase posterior trunk lean. pt unable to take steps. positioned pt on the chair. call light and table placed within reach. chair alarm on. pt with increase confusion and has difficulty following directions. Gait Assessment Comments Gait Comments unable PT-Balance Assessment Sitting Balance and Reactions Static Sitting Balance Ability Fair Dynamic Sitting Balance Ability Fair Standing Balance and Reactions Static Standing Balance Ability Poor Dynamic Standing Balance Ability Poor Device Used FWW M5 PT-IP Objective Assessments Start: 10/14/21 08:31 Freq: NEEDED Status: Active Protocol: Document 10/17/21 11:55 AB (Rec: 10/17/21 14:01 [email or web address]) Orientation Orientation/Cognition Level of Alertness Confusional State Orientation Name Safety Awareness Decreased Safety Awareness Memory Description Short Term Impaired,Half-Way Impaired Gross Range of Motion Lower Extremity ROM Assessment Within Functional Limits Strength Lower Extremity Strength Assessment Bilaterally Impaired Hip 3+/5 Knee 3+/5 Muscle Tone Muscle Tone WNL Yes M6 PT-IP Treatment Start: 10/14/21 08:31 Freq: NEEDED Status: Active Protocol: Document 10/17/21 11:55 AB (Rec: 10/17/21 14:01 [email or web address]) Physical Therapy Treatment Education Education Provided Safety M7 PT-IP Assessment and Plan Start: 10/14/21 08:31 Freq: NEEDED Status: Active Protocol: Document 10/17/21 11:55 AB (Rec: 10/17/21 14:01 AB [id number]) PT Summary Assessment and Plan Potential Rehabilitation Potential Fair Status of Condition at Evaluation Evolving Summary Impairments Pain,ROM,Strength,Balance, Coordination,Sensation,Tone, Cognition,Bed Mobility, Transfers,Gait,Activity Tolerance Assessment Summary pt requiring max A x 2 for stand pivot transfer using FWW with increase posterior trunk lean during standing requiring increase assistance. pt also has dx dementia affecting following directions and safety awareness. pt will need 24/7 assist if pt goes home. per correctional counselor/case manager ' s note: plan is for pt to go home with hospice care. Goals Bed Mobility Goal Moderate Assistance Transfer Goal Moderate Assistance,Front Wheeled Walker Gait Goal Moderate Assistance,Front Wheel Walker Gait Distance 25 Days to Meet Goals 10 Frequency of Treatment Frequency Of Treatment Once a Day Treatment Plan Physical Therapy Treatment Plan Bed Mobility Training,Transfer Training,Gait Training, Therapeutic Exercise,Balance Retraining,Discharge Planning, Hot or Cold Pack,Neuromuscular Re-ed,Coordination Retraining ,Manual Therapy Precautions Other Precautions falls Recommendations To Nursing Amount of Assist Needed 2 Person Assist Discharge Recommendations PT Discharge Recommendations Home with 24/7 Assist Available,Home Health,SNF Rehab Transportation Needs at Discharge Wheelchair/Cabulance
--- NOTE | 2021-10-17 12:21 | CM.DPNOTE ---
DCP Note Family has decided on taking patient home w/hospice services. Updated HEATHERW, Gabrielle. Hospital bed delivery likely Tuesday, RN start of care anticipated Tuesday. [facility] team will coordinate plan w/Raji, son, per Thony/spouse's request (Thony has difficulty hearing on the phone) Dr Castellanos aware, patient's spouse Thony and family agreeable to plan- Plan: DC home w/spouse, family and Hospice services, likely Tuesday once hospital bed delivered and HNW RN can start care ELEANOR Echevarria
[2021-10-17] MEDS: POTASSIUM CHLORIDE 20 MEQ TAB 40 MEQ PO ×2 (14:02→17:30)
--- NOTE | 2021-10-17 14:58 | OT.IPNOTE ---
Pt asleep and when asking pt nurse , she states pt requesting to sleep at this time.
--- NOTE | 2021-10-17 16:08 | P.PN_ITS ---
Subjective Subjective Date Patient Seen: 10/17/21 Time Patient Seen: 09:00 Interval history: 80-year-old female admitted to the hospital with weakness, anemia, failure to thrive. Discussed with family and plan is for hospice. Plt count is improving. Started on rivaroxaban for b/l DVT. Heparin Ab pending. Exam Vital Signs (past 8 hours): - 10/17/21 08:58 10/17/21 11:00 10/17/21 11:35 Temperature 97.7 F Pulse Rate 86 89 Respiratory Rate 19 Blood Pressure 125/67 95/41 L 95/41 L Pulse Oximetry 96 10/17/21 15:00 Temperature 97.7 F Pulse Rate 94 H Respiratory Rate 18 Blood Pressure 100/67 Pulse Oximetry 94 Oxygen Delivery Method Room Air Oxygen Flow Rate 0 Narrative Exam Narrative: GEN: Pleasantly confused elderly female sitting in bed in no acute distress Resp Other: Lungs decreased breath sounds but clear Cardio Other: Cardiac exam:? RRR normal S1-S2 GI Other: Abdomen is soft and nontender Extrem Other: no edema or joint effusions Objective Labs Result Diagrams: 10/17/21 09:05 10/17/21 09:05 Labs: Laboratory Results - last 24 hr 10/13/21 10/14/21 10/17/21 05:56 19:07 09:05 WBC 4.6 RBC 3.28 L Hgb 9.7 L Hct 29.1 L MCV 88.8 MCH 29.6 MCHC 33.4 RDW 17.3 H Plt Count 75 L Neut % (Auto) Not Reportable Lymph % (Auto) Not Reportable Borden % (Auto) Not Reportable Eos % (Auto) Not Reportable Baso % (Auto) Not Reportable Lymph # (Auto) Not Reportable Borden # (Auto) Not Reportable Baso # (Auto) Not Reportable Total Counted 100 Seg Neutrophils % 38.0 Band Neutrophils % 4.0 Lymphocytes % (Manual) 38.0 Atypical Lymphs % 10.0 H Monocytes % (Manual) 2.0 Eosinophils % (Manual) 2.0 Metamyelocytes % 2.0 H Myelocytes % 4.0 H Neutrophils # (Manual) 1932 L Toxic Vacuolation Present H RBC Morphology See below Hypochromasia 1+ H Poikilocytosis 1+ H Anisocytosis 2+ H Schistocytes 1+ H Sodium Potassium Chloride Carbon Dioxide BUN Creatinine Estimated GFR BUN/Creatinine Ratio Glucose Calcium Ref Test (Refrig) Comment Crossmatch See Detail 10/17/21 09:05 WBC RBC Hgb Hct MCV MCH MCHC RDW Plt Count Neut % (Auto) Lymph % (Auto) Borden % (Auto) Eos % (Auto) Baso % (Auto) Lymph # (Auto) Borden # (Auto) Baso # (Auto) Total Counted Seg Neutrophils % Band Neutrophils % Lymphocytes % (Manual) Atypical Lymphs % Monocytes % (Manual) Eosinophils % (Manual) Metamyelocytes % Myelocytes % Neutrophils # (Manual) Toxic Vacuolation RBC Morphology Hypochromasia Poikilocytosis Anisocytosis Schistocytes Sodium 147 H Potassium 3.2 L Chloride 121 H Carbon Dioxide 23 BUN 18 H Creatinine 0.79 Estimated GFR > 60 BUN/Creatinine Ratio 22.8 H Glucose 106 Calcium 8.5 Ref Test (Refrig) Crossmatch [facility] Medical History Arthritis (~2013) Cholelithiasis (~06/2017) Colon polyps (~2006) Diarrhea Fatty liver (~01/2014) Fibroids Foot fracture, left GERD (gastroesophageal reflux disease) (~01/2014) Hypertension Severe protein-calorie malnutrition (Giron: less than 60% of standard weight) Surgical History History of back surgery History of tonsillectomy and adenoidectomy History of total abdominal hysterectomy and bilateral salpingo-oophorectomy Hx of hernia repair Hx of surgical procedure Family History Father Cancer Mother Hypertension Social History household members: spouse Smoking Status: Former smoker alcohol intake: never Assessment & Plan Assessment & Plan narrative: 80-year-old female, with advanced dementia, failure to thrive, presented to the hospital with acute renal failure, 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 Started rivaroxaban today. * continue PT/OT * Patient is also under workup for possible CML.? Results of which are pending. * Patient received 2 units of packed RBCs for anemia, hemoglobin 6.8, after 2 units of blood her hemoglobin is now improved. * family not interested in any treaments really other than possible oral agents if leukemia is present. Consider outpatient oncology discussion depending on results of panel that was sent. Aspiration pneumonia or pneumonitis * Patient had a witnessed aspiration event, will continue antibiotic * Speech consult obtained, she is now on a pureed diet which she appears to be tolerating Acute kidney injury * Improved with IV hydration and blood transfusion * BUN and creatinine have now normalized * However proBNP elevated, concern for acute heart failure but now improved. TTE taken but no read, will look into obtaining results. Hypertension * resumed home metoprolol. 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 * Family is interested in hospice Dementia * Fairly advanced * Will attempt PT and OT Patient appears to be fairly debilitated Probable severe protein calorie malnutrition * BMI 16 point * Diet poor speech therapy Dispo: discharge home with hospice in the next few days once equipment is obtained. Time Spent With Patient Critical Care time: I spent a total of [] minutes of critical care time on this patient's care toda y; this time is exclusive of procedural time. Quality VTE Deep Vein Thrombosis/Pulmonary Embolism Present on Admission: No
--- NOTE | 2021-10-17 17:58 | PC.NURSE ---
Pt is AxO1, pleasant and sleepy most of the day. Crow is draining small, orange color urine output. Pt has poor appetite and denied pain. Sometimes, pt calls for her Thony. Bed alarm is and tele is continued. Tele mostly sinus rhythm except during activity with PT, it shows tachycardia. Otherwise, no change.
--- NOTE | 2021-10-17 20:12 | PC.NURSE ---
alert and oriented x 1, short term memory deficits. denies pain/discomfort. lieberman patent, draining dark yellow urine to gravity. encouraged to drink fluids, HTL ice water available at bedside. oral mucosa is dry, cracked. oral care completed, chapstick applied to lips. bed alarm is on, call light w/in reach.
[2021-10-18] VITALS (10 sets, daily range): BP systolic 99–104; BP diastolic 56–70; PULSE 92–115; RESP 16–18; TEMP 36.7–37.1; O2SAT 93–98
[2021-10-18] MEDS: METOPROLOL ER 25 MG TABLET PO ×2 (08:16→20:29)
[2021-10-18] MEDS: RIVAROXABAN 10 MG TABLET 15 MG PO ×2 (08:17→20:29)
--- NOTE | 2021-10-18 10:23 | PT-IP ANOTE ---
Per hospitalist , pt to discharge home with hospice support. PT to complete current orders.
--- NOTE | 2021-10-18 14:23 | CM.DANOTE ---
DCP/continued: Reviewed chart. Spoke with provider/Dr. Castellanos re: d/c planning. Current plan is for patient to d/c home with hospice. Spoke with Gabrielle at [facility]. She reports hospital bed scheduled to be delivered tomorrow 10-12-21. First Hospice visit is scheduled for 10-13 between 2-3:00pm. Spouse reports that he is not sure if it is feasible for patient to come home after tomorrow once bed delivered OR on Tuesday when hospice can see them on the same day. Notified spouse that CM instrument repairer steam plant would discuss further with him tomorrow. P: Home with Hospice on either Tuesday or of this week. Patient will need BLS transport. ANENLISE
--- NOTE | 2021-10-18 14:54 | P.PN_ITS ---
Subjective Subjective Date Patient Seen: 10/18/21 Interval history: 1-year-old female admitted to the hospital with weakness, anemia, failure to thrive. Plan for home with hospice once hospital bed arrives. Heparin antibody results appear positive. Exam Vital Signs (past 8 hours): - 10/18/21 07:00 10/18/21 08:16 10/18/21 09:09 Temperature 98.1 F Pulse Rate 104 H 104 H Respiratory Rate 18 Blood Pressure 100/68 100/68 Pulse Oximetry 95 95 10/18/21 11:50 Temperature Pulse Rate 105 H Respiratory Rate Blood Pressure 104/64 Pulse Oximetry Oxygen Delivery Method Room Air Oxygen Flow Rate 0 Narrative Exam Narrative: GEN: Pleasantly confused elderly female sitting in bed in no acute distress Resp Other: Lungs decreased breath sounds but clear Cardio Other: Cardiac exam:? RRR normal S1-S2 GI Other: Abdomen is soft and nontender Extrem Other: no edema or joint effusions Objective Labs Result Diagrams: 10/17/21 09:05 10/17/21 09:05 [facility] Medical History Arthritis (~2013) Cholelithiasis (~06/2017) Colon polyps (~2006) Diarrhea Fatty liver (~01/2014) Fibroids Foot fracture, left GERD (gastroesophageal reflux disease) (~01/2014) Hypertension Severe protein-calorie malnutrition (Giron: less than 60% of standard weight) Surgical History History of back surgery History of tonsillectomy and adenoidectomy History of total abdominal hysterectomy and bilateral salpingo-oophorectomy Hx of hernia repair Hx of surgical procedure Family History Father Cancer Mother Hypertension Social History household members: spouse Smoking Status: Former smoker alcohol intake: never Assessment & Plan Assessment & Plan narrative: 80-year-old female, with advanced dementia, failure to thrive, presented to the hospital with acute renal failure, 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 * Patient diagnosed with bilateral DVTs * She was initiated on Lovenox initially, stopped due to possible CHERYL. HIPA test positive indicating possible CHERYL. Started rivaroxaban which can be safely given. * No further benefit to PT/OT. * Patient is also under workup for possible CML.? Results of which are pending. * Patient received 2 units of packed RBCs for anemia, hemoglobin 6.8, after 2 units of blood her hemoglobin is now improved and stable. * family not interested in any treaments really other than possible oral agents if leukemia is present. Consider outpatient oncology discussion depending on results of panel that was sent. Aspiration pneumonia or pneumonitis * Patient had a witnessed aspiration event, will continue antibiotic * Speech consult obtained, she is now on a pureed diet which she appears to be tolerating\ Acute kidney injury, resolved * Improved with IV hydration and blood transfusion * BUN and creatinine have now normalized Hypertension * resumed home metoprolol. 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 * Family is interested in hospice Dementia * Fairly advanced * discontinue PT/OT today. Severe Acute on Chronic Protein Calorie Malnutrition * BMI 16 point * Diet poor speech therapy Dispo: discharge home with hospice once equipment is obtained. Time Spent With Patient Critical Care time: I spent a total of [] minutes of critical care time on this patient's care today; this time is exclusive of procedural time. Quality VTE Deep Vein Thrombosis/Pulmonary Embolism Present on Admission: No
[2021-10-19] VITALS (7 sets, daily range): BP systolic 117–119; BP diastolic 63–70; PULSE 90–111; RESP 15–16; TEMP 36.6–37.3; O2SAT 95
[2021-10-19 06:50] LABS: Hematocrit 30.7 % (36-46); Hemoglobin 9.9 g/dL (12.0-16.0); Red Blood Cell Count 3.41 X10^6/uL (4.0-5.2); White Blood Cell Count 5.3 X10^3/uL (4.5-11.0)
[2021-10-19 06:51] LABS: Add Manual Diff / Slide Review YES; Mean Corpuscular HGB Conc 32.3 % (30-36); Mean Corpuscular Volume 89.9 fL (80-100); Platelet Count 106 X10^3/uL (150-400); Red Cell Distribution Width 16.9 % (11.6-14.8)
[2021-10-19 06:52] LABS: Neutrophils Absolute Manual 1643 /uL (3000-5900); Total Cells Counted 100
[2021-10-19 06:53] LABS: Platelet Estimate Decreased on smear
[2021-10-19 06:54] LABS: Hypochromasia 1+; Plasma Cells 1
[2021-10-19] MEDS: RIVAROXABAN 10 MG TABLET 15 MG PO ×2 (08:48→17:55)
[2021-10-19] MEDS: METOPROLOL ER 25 MG TABLET PO ×2 (08:49→20:31)
--- NOTE | 2021-10-19 13:55 | OT.IPNOTE ---
Chart reviewed and discussed at rounds. Pt is planned for d/c home with hospice on comfort care. Will discharge OT eval.
--- NOTE | 2021-10-19 15:23 | CM.DANOTE ---
DCP/continued: Received notification from provider and [facility] that patient medically to d/c home tomorrow with hopsice to see around 10:00AM. UNPAID INTERN placed call to [facility] and arranged transport. security site supervisor scheduled for 9:00AM. Met with spouse this afternoon and he is aware and agreeable to plan. UNPAID INTERN and hospice are encouraging spouse and son to hire additional assistance in the home if needed. Family aware that hospice will not be there around the clock. P: Home tomorrow with Hospice opening at 10:00AM. RN updated to peanut picker time. D/C summary will need to be faxed to Hospice when it becomes available. ANNELISE
--- NOTE | 2021-10-19 16:04 | P.PN_ITS ---
Subjective Subjective Date Patient Seen: 10/19/21 Interval history: 80-year-old female admitted to the hospital with weakness, anemia, failure to thrive. Plan for home with hospice tomorrow Exam Vital Signs (past 8 hours): - 10/19/21 08:36 10/19/21 08:49 10/19/21 09:19 Pulse Rate 103 H 90 Blood Pressure 119/70 Pulse Oximetry 95 Oxygen Delivery Method Room Air Oxygen Flow Rate 0 Narrative Exam Narrative: GEN: Pleasantly confused elderly female sitting in bed in no acute distress Resp Other: Lungs decreased breath sounds but clear Cardio Other: Cardiac exam:? RRR normal S1-S2 GI Other: Abdomen is soft and nontender Extrem Other: no edema or joint effusions Objective Labs Result Diagrams: 10/19/21 04:55 10/17/21 09:05 Labs: Laboratory Results - last 24 hr 10/19/21 04:55 WBC 5.3 RBC 3.41 L Hgb 9.9 L Hct 30.7 L MCV 89.9 MCH 29.0 MCHC 32.3 RDW 16.9 H Plt Count 106 L Neut % (Auto) Not Reportable Lymph % (Auto) Not Reportable Harris % (Auto) Not Reportable Eos % (Auto) Not Reportable Baso % (Auto) Not Reportable Lymph # (Auto) Not Reportable Harris # (Auto) Not Reportable Baso # (Auto) Not Reportable Total Counted 100 Seg Neutrophils % 27.0 L Band Neutrophils % 4.0 Lymphocytes % (Manual) 55.0 H Monocytes % (Manual) 2.0 Eosinophils % (Manual) 6.0 H Basophils % (Manual) 1.0 Myelocytes % 4.0 H Neutrophils # (Manual) 1643 L Plasma Cells 1 Platelet Estimate Decreased on smear Plt Morphology Comment 1+ giant plts RBC Morphology See below Hypochromasia 1+ H PFSH Medical History Arthritis (~2013) Cholelithiasis (~06/2017) Colon polyps (~2006) Diarrhea Fatty liver (~01/2014) Fibroids Foot fracture, left GERD (gastroesophageal reflux disease) (~01/2014) Hypertension Severe protein-calorie malnutrition (Giron: less than 60% of standard weight) Surgical History History of back surgery History of tonsillectomy and adenoidectomy History of total abdominal hysterectomy and bilateral salpingo-oophorectomy Hx of hernia repair Hx of surgical procedure Family History Father Cancer Mother Hypertension Social History household members: spouse Smoking Status: Former smoker alcohol intake: never Assessment & Plan Assessment & Plan narrative: 80-year-old female, with advanced dementia, failure to thrive, presented to the hospital with acute renal failure, 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 * Patient diagnosed with bilateral DVTs * She was initiated on Lovenox initially, stopped due to possible CHERYL. HIPA test positive indicating possible CHERYL. Started rivaroxaban which can be safely given. * No further benefit to PT/OT. * Patient is also under workup for possible CML.? Results of which are pending. * Patient received 2 units of packed RBCs for anemia, hemoglobin 6.8, after 2 units of blood her hemoglobin is now improved and stable. * family not interested in any treaments really other than possible oral agents if leukemia is present. Consider outpatient oncology discussion depending on results of panel that was sent. Aspiration pneumonia or pneumonitis * Patient had a witnessed aspiration event, antibiotics provided but stopped as pneumonitis more likely. * Speech consult obtained, she is now on a pureed diet which she appears to be tolerating\ Acute kidney injury, resolved * Improved with IV hydration and blood transfusion * BUN and creatinine have now normalized Hypertension * resumed home metoprolol. 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 * Family is interested in hospice Dementia * Fairly advanced * discontinue PT/OT today. Severe Acute on Chronic Protein Calorie Malnutrition * BMI 16 point * Diet poor speech therapy CHERYL - lovenox stopped as noted above, thrombocytopenia improved. Dispo: discharge home with hospice tomorrow AM Time Spent With Patient Critical Care time: I spent a total of [] minutes of critical care time on this patient's care today; this time is exclusive of procedural time. Quality VTE Deep Vein Thrombosis/Pulmonary Embolism Present on Admission: No
[2021-10-19] MEDS: SODIUM CHLORIDE 0.9% FLUSH 10 ML IV (20:31)
--- NOTE | 2021-10-19 21:45 | PC.NURSE ---
Patient is oriented to self and birthdate only. Breath sounds CTA with RA sat of 95%. HRR but tachy at 111 bpm. Denied nausea. BT present and abdomen is soft. Indwelling catheter is patent; urine is clear, arabella. Gait not assessed at this time. Has been refusing SCD's. Denied pain. Fall risk score is high and bed alarm is activated. Plans to dc home in a.m. with hospice
[2021-10-20 07:00] VITALS: BP 116/71; PULSE 112; RESP 24; TEMP 36.3; O2SAT 96
--- NOTE | 2021-10-20 07:28 | PM.DS.1 ---
History of Present Illness History of Present Illness Date Patient Seen: 10/20/21 Time Patient Seen: 07:28 Chief complaint: Fall, weak, dehydration Narrative: Per FRANCISCO Leon, Wooten is an 80-year-old female with the history of CHF, essential hypertension and GERD, recently discharged from this facility on October 01 for a fall and overall weakness and acute kidney injury re-presented today ?increased confusion, weakness, lack of appetite and altered mentation.? I did not meet the however per the ED provider he stated that she was improved upon discharge and worsened significantly over today.? Patient is unable to give me a history although was able to tell me she was in the hospital, could not tell me the date or day.? She is being requested for admission due to a SANDY of a creatinine of 1.99 and a lactate of 3.7, and metabolic abnormalities including hypernatremia, hypermagnemesia and elevated liver enzymes. Chest x-ray ordered in the emergency department did not reveal any acute cardiopulmonary abnormalities.? CT of the head with and without contrast also was negative for acute intracranial abnormalities however noted chronic microvascular ischemic changes and age-related diffuse cerebral volume loss.? Patient is mildly febrile 99.4, blood pressure 125/55, heart rate 115, respiratory rate 18, oxygen saturation of 97% on room air, she weighs 38.5 kg with a BMI of 16.6.? She is anemic with a hemoglobin and hematocrit of 7.6 and 23.4 respectively, she has a number of abnormal values on her peripheral smear, sodium is 150, potassium 3.8, chloride 117, bicarb 17, creatinine 1.99 with BUN of 53 and a estimated EGFR of 25, glucose 132, magnesium 2.4, AST 76, ALT 36, albumin 3.4, she procalcitonin is 0.34, TSH is 3.25, UA is negative for UTI, and COVID-19 PCR is negative. Discharge Providers Provider Date of admission: 10/12/21 20:48 Discharge Date: 10/20/21 Primary care physician: Ron Cordova MD Consults: 10/12/21 23:24 Consult to Dietitian, Adult Routine Comment: Severe protein calorie malnutrition, SANDY Reason For Exam: Severe protein calorie malnutrition, SANDY 10/12/21 23:25 Consult to Discharge Planning Routine Comment: 10/13/21 14:58 Consult to Dietitian, Adult Routine Comment: Reason For Exam: malnutrition Consult to Occupational Therapy Evaluate & Treat Comment: Physician Instructions: Evaluate and treat Consult to Physical Therapy Evaluate & Treat Comment: Physician Instructions: Evaluate and Treat 10/14/21 17:05 Consult to Dietitian, Adult Routine Comment: Reason For Exam: malnourished Consult to Speech Therapy Evaluate & Treat Comment: Physician Instructions: Evaluate and treat Discharge provider: Javed Castellanos DO Summary Hospital Course Discharge Diagnosis: Please see hospital course by problem list noted below: Hospital Course: 80-year-old female, with advanced dementia, failure to thrive, presented to the hospital with acute renal failure, 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 1. bilateral DVTs- She was initiated on Lovenox initially, stopped due to possible CHERYL. HIPA test positive indicating possible CHREYL. Started rivaroxaban which can be safely given. Will continue this for comfort at discharge. She was seen by PT/OT and there was deemend no further benefit of therapy given patient's advanced dementia. 2. possible CML.? Results of which are pending. - Patient received 2 units of packed RBCs for an acute anemia, hemoglobin 6.8, after 2 units of blood her hemoglobin is now improved and stable. - family not interested in any treaments really other than possible oral agents if leukemia is present. Consider outpatient oncology discussion depending on results of panel that was sent 3. Aspiration pneumonia or pneumonitis Patient had a witnessed aspiration event, antibiotics provided but stopped as pneumonitis more likely. Speech consult obtained, she is now on a pureed diet which she appears to be tolerating 4. Acute kidney injury, resolved - Improved with IV hydration and blood transfusion 5. Hypertension - resumed home metoprolol. 6. Dementia - Fairly advanced and likely contributory towards her protein calorie malnutrition. 7. Severe Acute on Chronic Protein Calorie Malnutrition - appreciate speech and dietary recommendations. Time Spent with Patient Time spent: Greater than 30 minutes Exam Vital Signs (past 8 hours): Oxygen Delivery Method Room Air Oxygen Flow Rate 0 Narrative Exam Narrative: GEN: Pleasantly confused elderly female sitting in bed in no acute distress Resp Other: Lungs decreased breath sounds but clear Cardio Other: Cardiac exam:? RRR normal S1-S2 GI Other: Abdomen is soft and nontender Extrem Other: no edema or joint effusions Objective Labs Result Diagrams: 10/19/21 04:55 10/17/21 09:05 [facility] Medical History Arthritis (~2013) Cholelithiasis (~06/2017) Colon polyps (~2006) Diarrhea Fatty liver (~01/2014) Fibroids Foot fracture, left GERD (gastroesophageal reflux disease) (~01/2014) Hypertension Severe protein-calorie malnutrition ([place]: less than 60% of standard weight) Surgical History History of back surgery History of tonsillectomy and adenoidectomy History of total abdominal hysterectomy and bilateral salpingo-oophorectomy Hx of hernia repair Hx of surgical procedure Family History Father Cancer Mother Hypertension Social History household members: spouse Smoking Status: Former smoker alcohol intake: never Discharge Plan Discharge Plan Patient Disposition: Hospice - Home Provider Discharge Comment: Patient was admitted to the hospital with progressive decline. Found to have a blood clot, possibly has a chronic leukemia but laboratory testing is still pending. Discharge orders & Medications Prescriptions: New rivaroxaban 15 mg tablet 15 mg PO BIDWM 14 Days Qty: 28 0RF rivaroxaban 20 mg tablet 20 mg PO DAILY 90 Days Qty: 90 0RF Rx Instructions: must administer with evening meal. start 20 mg a day dosing after completing 15 mg twice a day from other prescription. Continued metoprolol succinate 25 mg Tablet Extended Release 24 Hr 50 mg PO BID Qty: 60 0RF multivitamin with folic acid [Tab-A-Sera] 400 mcg Tablet 1 tab PO DAILY Qty: 30 0RF tramadol 50 mg tablet 50 mg PO Q6H PRN (Reason: pain) Qty: 30 0RF docusate sodium 100 mg tablet 100 mg PO DAILY Qty: 60 0RF Discontinued amoxicillin-pot clavulanate [Augmentin] 500-125 mg Tablet 1 tab PO BID Qty: 6 0RF Follow up/Referrals: Ron Cordova MD [Primary Care Provider] - Diet/Activity/Treatments Diet: Diet as Tolerated Diet comment: Pureed Activity: As tolerated Discharge Data Primary Care Provider: Tasha,Ron Quality VTE Deep Vein Thrombosis/Pulmonary Embolism Present on Admission: No
[2021-10-20 08:05] VITALS: BP 109/58
[2021-10-20] MEDS: METOPROLOL ER 25 MG TABLET PO (08:05)
[2021-10-20] MEDS: RIVAROXABAN 10 MG TABLET 15 MG PO (08:05)
--- NOTE | 2021-10-20 09:06 | PC.NURSE ---
Discharge Note Patient A&Ox1 to baseline, VSS, RA, no complaints of pain/discomfort. Patient agreeable to discharge plan to home. PIV discontinued. All belongings packed and given to patient. Report given to [facility] transportation crew, all questions/concerns addressed. Patient left floor via stretcher accompanied by S crew.
--- NOTE | 2021-10-20 11:31 | CM.DPC ---
DCP/continued: Patient picked up this AM by [facility] as arranged. Hospice notified and will meet the patient/family in the residence around 10:00AM. ANNELISE
[2021-10-20 19:52] LABS: Interpretation Negative (.)
== END 2021-10-20 09:05 | disposition hospice, home (50) | DRG 682 ==
LOC: ED 19:56 → AC 20:49
PROVIDERS: Emergency Medicine; Internal Medicine; Admitting Provider Nurse Practitioner Family; Emergency Provider Emergency Medicine; PCP Student in an Organized Health Care Education/Training Program; Referring Provider Emergency Medicine; Visit Provider Nurse Practitioner Family
DX: N17.9 Acute kidney failure, unspecified (principal); E43 Unspecified severe protein-calorie malnutrition; J69.0 Pneumonitis due to inhalation of food and vomit; Z68.1 Body mass index [BMI] 19.9 or less, adult; E87.0 Hyperosmolality and hypernatremia; C92.10 Chronic myeloid leukemia, BCR/ABL-positive, not having achieved remission; N39.0 Urinary tract infection, site not specified; F03.91 Unspecified dementia, unspecified severity, with behavioral disturbance; I82.413 Acute embolism and thrombosis of femoral vein, bilateral; I82.4Y3 Acute embolism and thrombosis of unspecified deep veins of proximal lower extremity, bilateral; D75.82 Heparin induced thrombocytopenia (HIT); E86.0 Dehydration; E83.41 Hypermagnesemia; I95.9 Hypotension, unspecified; T45.515A Adverse effect of anticoagulants, initial encounter; I10 Essential (primary) hypertension; R00.0 Tachycardia, unspecified; Z20.822 Contact with and (suspected) exposure to COVID-19; Z66 Do not resuscitate; Z87.891 Personal history of nicotine dependence
CPT/HCPCS: 36415; 36430; 70450; 71045; 71260; 74177; 80048; 80053; 81001; 81003; 81206; 81207; 82550; 83605; 83690; 83735; 83880; 84100; 84145; 84443; 84484; 85007; 85014; 85018; 85025; 85379; 86850; 86900; 86901; 87040; 87635; 92610; 93005; 93306; 93970; 94760; 97162; 99284; 99285; C9803; P9016; J0696; J1650; J1940; J2270; J3475; J7050; J7121; Q9967